=== PATIENT | male | born 1940 | race Caucasian/White ===

== ENCOUNTER → 2016-06-16 | Outpatient (CLI) | payer OTHER, BC ==
[~2016-06-16] MED LIST: ASCA500 PO; ASPCH81X PO; CITA10TA4 PO; CITA20TA4 PO; CLON0.5T3 PO; CLON1TAB3 PO; CLX20 PO; DONE10TA12 PO; GADAVIST IV PRN; LISI-725 PO; LISI-788 PO; MELO7.5T5 PO; NUTR1CAP PO; OMEP20CA9 PO; PARO1TAB27 PO; PRED1SUS OPR; PRLSR20 PO; SIMV40TA2 PO; TRAM-10 PO; ZNTT/150 PO; [UNRECOGNIZED DRUG - OTHER] PO
--- NOTE | 2016-06-16 13:45 | DIAGNOSTIC IMAGING REPORT ---
MRI OF THE NECK COMBO CLINICAL HISTORY: Neck pain. Right ear pain. Tongue swelling. Right jaw pain. COMPARISON STUDY: No priors. TECHNIQUE: MRI of the neck is performed utilizing various T1 and T2-weighted sequences in the axial and coronal planes. Contrast-enhanced images are acquired following the IV administration of 8 cc of Gadavist. FINDINGS: The soft tissues of the neck are normal in appearance. The pharyngeal soft tissues are unremarkable. The pharyngeal airway is widely patent. The parapharyngeal fat is normal in appearance. No retropharyngeal abnormality is seen. The vocal cords appear symmetric. The salivary and thyroid glands are within normal limits. No cervical lymphadenopathy is seen. The carotid arteries and jugular veins appear patent. Visualized brain parenchyma at the skull base is within normal limits. The mastoid air cells are well pneumatized. The visualized paranasal sinuses are clear. Partially imaged orbital contents are normal in appearance. The visualized bony structures appear intact. Multilevel cervical spondylosis is partially imaged. IMPRESSION: 1. No soft tissue abnormality is identified in the neck. 2. Cervical spondylosis is partially imaged. Dictated: 06/16/2016 12:19 PM Transcribed: 06/16/2016 1:45 PM Tl Electronically signed by: Grover Trejo M.D. 06/16/2016 1:46 PM Dictated Date/Time: 06/16/2016 12:19 PM
== END | disposition home or self-care (01) ==
LOC: C.MRI 10:52
PROVIDERS: ATTEND Hospitalist
DX: H92.01 Otalgia, right ear (principal); M54.2 Cervicalgia; R22.0 Localized swelling, mass and lump, head; F17.200 Nicotine dependence, unspecified, uncomplicated; M47.812 Spondylosis without myelopathy or radiculopathy, cervical region

== ENCOUNTER → 2016-07-19 | Day surgery (SDC) | payer OTHER, BC ==
[2016-07-06 08:56] VITALS: Ht 177.8 cm; Wt 80.9 kg
[~2016-07-19] VITALS: Ht 177.8 cm; Wt 80.9 kg
[~2016-07-19] MED LIST changes: +500ML BSS 0.3ML EPI 1:1000PF IRRIG ONE; +ACETAMINOPHEN 325 MG TAB PO PRN; +AMVISC PLUS 0.8ML SYRINGE INT OCU ONE; +ATROPINE SULFATE 0.1 MG/ML 5ML SYR IV PRN; +AcetaZOLAMIDE 250 MG TAB PO SCH; +BETAXOLOL HCL 0.25% OP SUSP PER DROP CHARGE OPR SCH; +BRIMONIDINE TART 0.2% OP SOLN PER DROP CHARGE ONE; +BSS FLUSH ONE; -CLON0.5T3 PO; -CLON1TAB3 PO; +ENDOCOAT 0.85ML SYRINGE INT OCU ONE; +EpHEDrine SULFATE INJ 50 MG/ML AMP IV PRN; +EpINEphrine INJ 1MG/ML AMP 1 MG/ML AMP ONE; -GADAVIST IV PRN; +LACTATED RINGER'S 1000ML 500 ML IV SCH; +LIDOCAINE 4% OP SOLN DROP CHARGE ONE; +LIDOCAINE 4% OP SOLN DROP CHARGE OPR SCH; +LIDOCAINE HCL 1% MPF 2 ML VIAL ONE; -LISI-725 PO; +MIDAZOLAM HCL 1 MG/ML 2ML VIAL ONE; +MIX: 4ML BSS 1ML EPI 1:1000 PF INSTIL ONE; +MOXIFLOXACIN OPH SOLN PER DROP CHARGE ONE; +OCUCOAT 1 ML SOLN IO ONE; -PARO1TAB27 PO; +POVIDONE-IODINE OP SOLN 30 ML BTL ONE; -PRLSR20 PO; +PROPARACAINE 0.5% OP SOLN PER DROP CHARGE OPR SCH; +TOBRAMYCIN/DEXAMETHASONE OPH OINT PER APPLN CHARGE ONE
--- NOTE | 2016-07-19 07:51 | History & Physical Bridge - SC ---
H&P Re-Evaluation Bridge Note: I have examined the patient, reviewed the History & Physical and in the interval since the performance of the History & Physical I have noted the following changes of clinical significance: No changes noted
[2016-07-19] MEDS: PHENYLEPHRINE HCL 2.5% OP SOLN PER DROP CHARGE OPR SCH ×2 (08:12→08:17)
[2016-07-19] MEDS: TROPICAMIDE 1% OP SOLN PER DROP CHARGE OPR SCH ×2 (08:13→08:18)
[2016-07-19] MEDS: CYCLOPENTOLATE HCL 1% OP SOLN PER DROP CHARGE OPR SCH ×2 (08:14→08:19)
[2016-07-19] MEDS: MOXIFLOXACIN OPH SOLN PER DROP CHARGE OPR SCH ×2 (08:15→08:25)
--- NOTE | 2016-07-19 09:13 | Discharge Instructions-SurgCtr ---
Discharge Instructions Visit Reason for Visit: Cataract Right Eye Discharge Discharge Diagnosis / Problem: lens implant right eye Discharge Goals Goal(s): Improve function Activity Recommendations Activity Limitations: resume your previous activity Lifting Limitations: no more than 10 pounds Exercise/Sports Limitations: gradually increase as tolerated May Resume Sexual Activity: when tolerated Shower/Bathe: tomorrow Driving or Machine Use: resume 1 day after discharge Anesthesia . Post Anesthesia Instructions: If you have had General Anesthesia or IV Sedation: * Do not drive today. * Resume driving when surgeon permits. * Do not make important decisions or sign legal documents today. * Call surgeon for: 1. Temperature elevations greater than 101 degrees F. 2. Uncontrollable pain. 3. Excessive bleeding. 4. Persistent nausea and vomiting. 5. Medication intolerance (nausea, vomiting or rash). * For nausea and vomiting use only clear liquids such as: tea, soda, bouillon until nausea subsides, then gradually increase diet as tolerated. * If you have any concerns or questions, call your surgeon's office. If physician is unavailable and it is an emergency, call 911 or go to the nearest emergency room. . Instructions / Follow-Up Instructions / Follow-Up ACTIVITY RECOMMENDATIONS: * Light activities. * Mild irritation and blurred vision are common for the first few days. * You may walk outside, read, watch television. * Redness around the white part of the eye is common. MEDICATIONS: Resume previous medications unless instructed otherwise by your surgeon. * Take white Diamox (Acetazolamide) tablet at 1 pm today. Start all eye drops at 1 pm today: * Eye drops (today and tomorrow): Prednisone - one drop in operative eye every 3 hours while awake Ofloxacin - one drop in operative eye every 3 hours while awake SPECIAL CARE INSTRUCTIONS: * Tape plastic shield over eye to sleep at night. Call your doctor at with any concerns or problems. FOLLOW UP VISIT: Follow-up with Dr Foote at [place] office as scheduled. Diet Recommendations Home Diet: no limitations Procedures Procedures Performed: cataract extraction with lens implant Pending Studies Studies pending at discharge: no Medical Emergencies . Who to Call and When: Medical Emergencies: If at any time you feel your situation is an emergency, please call 911 immediately. . Non-Emergent Contact Non-Emergency issues call your: Marketing/Sales Person Call Non-Emergent contact if: your pain is not controlled [phone] . . "Provider Documentation" section prepared by Jose Foote.
--- NOTE | 2016-07-19 09:15 | [facility] Operative Report ---
Operative Report 1. PREOPERATIVE DIAGNOSIS: Senile nuclear cataract, right eye. 2. POSTOPERATIVE DIAGNOSIS: Senile nuclear cataract, right eye. 3. PROCEDURE: Phacoemulsification of right cataract with posterior chamber lens implant, type Bausch [employer] Lomb, model MX60, power +21.0 diopters. ANESTHESIA: Local standby. SURGEON: Dr. Foote. COMPLICATIONS: None. OPERATING TIME: 10 minutes. 4. OPERATION AND FINDINGS: DESCRIPTION OF PROCEDURE: The right pupil was dilated. The anesthetic was administered using a topical technique. The right eye was prepped and draped. A speculum was placed. A clear corneal incision was formed. The chamber was filled with Amvisc Plus and Endocoat. Epinephrine solution was used. A paracentesis was placed. A capsulorrhexis was performed. The nucleus was hydrodissected. A dense lens was removed with phacoemulsification. Time was 9.45 seconds. The aspiration unit was used to remove the cortex. The capsule was filled with Amvisc Plus. The lens implant was folded and placed into the capsule. The incision was hydrated. The Amvisc was aspirated. The wound was secure. The chamber was deep. The pupil was round. TobraDex ointment and Vigamox solution were placed. The speculum was removed. The patient was returned to the Recovery Room in stable condition. I attest to the content of the Intraoperative Record and any orders documented therein. Any exceptions are noted below. The scribe's documentation has been prepared in my presence, under my direction and personally reviewed by me in its entirety. I confirm that the note above accurately reflects all work, treatment, procedures, and medical decision making performed by me. I personally scribed for Jose Foote M.D. ([email or web address]) on 07/19/16 at 09:15. Electronically submitted by Munira Oneil ([email or web address]).
[2016-07-19 09:17] VITALS: TEMP 36.6
--- NOTE | 2016-07-19 09:34 | Anesthesia Progress Nt - [facility] ---
Anesthesia Post Op Note Date & Time Jul 19, 2016 at 09:33 Vital Signs Pain Intensity: 0 Vital Signs Past 12 Hours Date Time Temp Pulse Resp B/P Pulse Ox O2 Delivery O2 Flow Rate FiO2 07/19/16 09:17 36.6 56 16 138/86 97 Room Air 07/19/16 07:57 36.6 62 18 158/82 98 Room Air Notes Mental Status: alert / awake / arousable, participated in evaluation Pt Amnestic to Procedure: Yes Nausea / Vomiting: adequately controlled Pain: adequately controlled Airway Patency, RR, SpO2: stable & adequate BP & HR: stable & adequate Hydration State: stable & adequate Anesthetic Complications: no major complications apparent
[2016-07-19 09:37] VITALS: BP 124/81; PULSE 58; O2SAT 95
== END | disposition home or self-care (01) ==
LOC: X.SURG 07:36
PROVIDERS: ATTEND Specialist
DX: H25.11 Age-related nuclear cataract, right eye (principal); I10 Essential (primary) hypertension

== ENCOUNTER → 2016-08-02 | Day surgery (SDC) | payer OTHER, BC ==
[2016-08-01 09:03] VITALS: Ht 177.8 cm; Wt 80.9 kg
[~2016-08-02] VITALS: Ht 177.8 cm; Wt 80.9 kg
[~2016-08-02] MED LIST changes: +BETAXOLOL HCL 0.25% OP SUSP PER DROP CHARGE OPL SCH; -BETAXOLOL HCL 0.25% OP SUSP PER DROP CHARGE OPR SCH; -CLX20 PO; +LIDOCAINE 4% OP SOLN DROP CHARGE OPL SCH; -LIDOCAINE 4% OP SOLN DROP CHARGE OPR SCH; +PROPARACAINE 0.5% OP SOLN PER DROP CHARGE OPL SCH; -PROPARACAINE 0.5% OP SOLN PER DROP CHARGE OPR SCH; -ZNTT/150 PO
[2016-08-02] MEDS: PHENYLEPHRINE HCL 2.5% OP SOLN PER DROP CHARGE OPL SCH ×2 (11:42→11:47)
[2016-08-02] MEDS: TROPICAMIDE 1% OP SOLN PER DROP CHARGE OPL SCH ×2 (11:43→11:48)
[2016-08-02] MEDS: CYCLOPENTOLATE HCL 1% OP SOLN PER DROP CHARGE OPL SCH ×2 (11:44→11:49)
[2016-08-02] MEDS: MOXIFLOXACIN OPH SOLN PER DROP CHARGE OPL SCH ×2 (11:45→11:55)
--- NOTE | 2016-08-02 12:58 | Discharge Instructions-SurgCtr ---
Discharge Instructions Visit Reason for Visit: Cataract Left Eye Discharge Discharge Diagnosis / Problem: lens implant left eye Discharge Goals Goal(s): Improve function Activity Recommendations Activity Limitations: resume your previous activity Lifting Limitations: no more than 10 pounds Exercise/Sports Limitations: gradually increase as tolerated May Resume Sexual Activity: when tolerated Shower/Bathe: tomorrow Driving or Machine Use: resume 1 day after discharge Anesthesia . Post Anesthesia Instructions: If you have had General Anesthesia or IV Sedation: * Do not drive today. * Resume driving when surgeon permits. * Do not make important decisions or sign legal documents today. * Call surgeon for: 1. Temperature elevations greater than 101 degrees F. 2. Uncontrollable pain. 3. Excessive bleeding. 4. Persistent nausea and vomiting. 5. Medication intolerance (nausea, vomiting or rash). * For nausea and vomiting use only clear liquids such as: tea, soda, bouillon until nausea subsides, then gradually increase diet as tolerated. * If you have any concerns or questions, call your surgeon's office. If physician is unavailable and it is an emergency, call 911 or go to the nearest emergency room. . Instructions / Follow-Up Instructions / Follow-Up ACTIVITY RECOMMENDATIONS: * Light activities. * Mild irritation and blurred vision are common for the first few days. * You may walk outside, read, watch television. * Redness around the white part of the eye is common. MEDICATIONS: Resume previous medications unless instructed otherwise by your surgeon. * Take white Diamox (Acetazolamide) tablet at 4 pm today. Start all eye drops at 4 pm today: * Eye drops (today and tomorrow): Prednisone - one drop in operative eye every 3 hours while awake Ofloxacin - one drop in operative eye every 3 hours while awake SPECIAL CARE INSTRUCTIONS: * Tape plastic shield over eye to sleep at night. Call your doctor at with any concerns or problems. FOLLOW UP VISIT: Follow-up with Dr Foote at [place] office as scheduled. Diet Recommendations Home Diet: no limitations Procedures Procedures Performed: cataract extraction with lens implant Pending Studies Studies pending at discharge: no Medical Emergencies . Who to Call and When: Medical Emergencies: If at any time you feel your situation is an emergency, please call 911 immediately. . Non-Emergent Contact Non-Emergency issues call your: Extruder Operator Vertical Call Non-Emergent contact if: your pain is not controlled [phone] . . "Provider Documentation" section prepared by Jose Foote.
[2016-08-02 13:01] VITALS: TEMP 36.7
--- NOTE | 2016-08-02 13:02 | [facility] Operative Report ---
Operative Report Date of Service Aug 02, 2016. Operative Report 1. PREOPERATIVE DIAGNOSIS: Senile nuclear cataract, left eye. 2. POSTOPERATIVE DIAGNOSIS: Senile nuclear cataract, left eye. 3. PROCEDURE: Phacoemulsification of left cataract with posterior chamber lens implant, type Bausch [employer] Lomb, model MX60, power +22.0 diopters. ANESTHESIA: Local standby. SURGEON: Dr. Foote. COMPLICATIONS: None. OPERATING TIME: 10 minutes. 4. OPERATION AND FINDINGS: DESCRIPTION OF PROCEDURE: The left pupil was dilated. The anesthetic was administered using a topical technique. The left eye was prepped and draped. A speculum was placed. A clear corneal incision was formed. The chamber was filled with Amvisc Plus and Endocoat. Epinephrine solution was used. A paracentesis was placed. A capsulorrhexis was performed. The nucleus was hydrodissected. The lens was removed with phacoemulsification. Time was 5.40 seconds. The aspiration unit was used to remove the cortex. The capsule was filled with Amvisc Plus. The lens implant was folded and placed into the capsule. The incision was hydrated. The Amvisc was aspirated. The wound was secure. The chamber was deep. The pupil was round. TobraDex ointment and Vigamox solution were placed. The speculum was removed. The patient was returned to the Recovery Room in stable condition. I attest to the content of the Intraoperative Record and any orders documented therein. Any exceptions are noted below. The scribe's documentation has been prepared in my presence, under my direction and personally reviewed by me in its entirety. I confirm that the note above accurately reflects all work, treatment, procedures, and medical decision making performed by me. I personally scribed for Jose Foote M.D. ([email or web address]) on 08/02/16 at 13:01. Electronically submitted by Munira Oneil ([facility]).
--- NOTE | 2016-08-02 13:10 | Anesthesia Progress Nt - [facility] ---
Anesthesia Post Op Note Date & Time Aug 02, 2016 at 13:11 Vital Signs Pain Intensity: 0 Vital Signs Past 12 Hours Date Time Temp Pulse Resp B/P Pulse Ox O2 Delivery O2 Flow Rate FiO2 08/02/16 11:32 36.5 55 18 130/85 97 Room Air Notes Mental Status: alert / awake / arousable, participated in evaluation Pt Amnestic to Procedure: Yes Nausea / Vomiting: adequately controlled Pain: adequately controlled Airway Patency, RR, SpO2: stable & adequate BP & HR: stable & adequate Hydration State: stable & adequate Anesthetic Complications: no major complications apparent
[2016-08-02 13:28] VITALS: BP 141/86; PULSE 53; O2SAT 97
== END | disposition home or self-care (01) ==
LOC: X.SURG 11:12
PROVIDERS: ATTEND Specialist
DX: H25.12 Age-related nuclear cataract, left eye (principal); G47.33 Obstructive sleep apnea (adult) (pediatric); F32.9 Major depressive disorder, single episode, unspecified; F17.200 Nicotine dependence, unspecified, uncomplicated

== ENCOUNTER → 2016-08-21 | Outpatient (CLI) | payer OTHER, BC ==
[~2016-08-21] MED LIST changes: -500ML BSS 0.3ML EPI 1:1000PF IRRIG ONE; -ACETAMINOPHEN 325 MG TAB PO PRN; -AMVISC PLUS 0.8ML SYRINGE INT OCU ONE; -ATROPINE SULFATE 0.1 MG/ML 5ML SYR IV PRN; -AcetaZOLAMIDE 250 MG TAB PO SCH; -BETAXOLOL HCL 0.25% OP SUSP PER DROP CHARGE OPL SCH; -BRIMONIDINE TART 0.2% OP SOLN PER DROP CHARGE ONE; -BSS FLUSH ONE; -ENDOCOAT 0.85ML SYRINGE INT OCU ONE; -EpHEDrine SULFATE INJ 50 MG/ML AMP IV PRN; -EpINEphrine INJ 1MG/ML AMP 1 MG/ML AMP ONE; -LACTATED RINGER'S 1000ML 500 ML IV SCH; -LIDOCAINE 4% OP SOLN DROP CHARGE ONE; -LIDOCAINE 4% OP SOLN DROP CHARGE OPL SCH; -LIDOCAINE HCL 1% MPF 2 ML VIAL ONE; -MIDAZOLAM HCL 1 MG/ML 2ML VIAL ONE; -MIX: 4ML BSS 1ML EPI 1:1000 PF INSTIL ONE; -MOXIFLOXACIN OPH SOLN PER DROP CHARGE ONE; -OCUCOAT 1 ML SOLN IO ONE; -POVIDONE-IODINE OP SOLN 30 ML BTL ONE; -PROPARACAINE 0.5% OP SOLN PER DROP CHARGE OPL SCH; -TOBRAMYCIN/DEXAMETHASONE OPH OINT PER APPLN CHARGE ONE
== END | disposition home or self-care (01) ==
LOC: C.LABBFT 08:57
PROVIDERS: ATTEND Urology
DX: N40.0 Benign prostatic hyperplasia without lower urinary tract symptoms (principal)

== ENCOUNTER → 2016-09-18 | Outpatient (CLI) | payer OTHER, BC | END | disposition home or self-care (01) | LOC: C.LABBFT 10:42 | PROVIDERS: ATTEND Urology | DX: R97.20 Elevated prostate specific antigen [PSA] (principal) ==

== ENCOUNTER → 2016-09-28 | Outpatient (CLI) | payer OTHER, BC ==
[2016-09-28 12:40] LABS: URINE APPEARANCE CLEAR (CLEAR); URINE BILIRUBIN NEG (NEG); URINE COLOR DK YELLOW; URINE NITRITE NEG (NEG); URINE SPECIFIC GRAVITY 1.033 (1.000-1.030); UROBILINOGEN NEG (NEG); ZZUR CULT IF INDIC CLEAN CATCH NO
[2016-09-28 12:46] LABS: MANUAL MICROSCOPIC REQUIRED? NO; REVIEW REQ? NO
[2016-09-28 13:00] LABS: ESTIMATED AVERAGE GLUCOSE 123 mg/dl; HA1C FLAG Normal (Normal)
[2016-09-28 13:02] LABS: BLOOD UREA NITROGEN 33 mg/dl (7-18); BUN/CREATININE RATIO 29.6 (10-20); GLUCOSE,FASTING 96 mg/dl (70-99)
--- NOTE | 2016-10-06 10:30 | CODING QUERY MEDICAL NECESSITY ---
SUPPORTING DIAGNOSIS NEEDED A supporting diagnosis is required for the test/procedure performed on this patient in order for us to be reimbursed by the patient's insurance. Please provide a supporting diagnosis for the following test/procedure listed below next to the test name along with your signature. *If there is no additional diagnosis for this patient that would support the following test/procedure please document that below next to the test/procedure. Test(s)/Procedure(s) that require a supporting diagnosis: DOS 09/28 * Hba1c DIAGNOSIS: Provider Signature: Date: Thank you Josefina Posadas Health Information Management Once completed, please kindly fax back to [phone] For questions please call [phone]
== END | disposition home or self-care (01) ==
LOC: C.LABBFT 08:24
PROVIDERS: ATTEND Internal Medicine
DX: R73.03 Prediabetes (principal); E78.00 Pure hypercholesterolemia, unspecified; R97.20 Elevated prostate specific antigen [PSA]

== ENCOUNTER → 2016-11-03 | Outpatient (CLI) | payer OTHER, BC ==
[~2016-11-03] MED LIST changes: +GADAVIST IV PRN
--- NOTE | 2016-11-13 09:21 | DIAGNOSTIC IMAGING REPORT ---
MRI OF THE PROSTATE WITH AND WITHOUT CONTRAST CLINICAL HISTORY: Elevated PSA. COMPARISON STUDY: MRI of the pelvis January 05, 2006. TECHNIQUE: Utilizing a 1.5 Barbra magnet and dedicated coil, multiplanar, multi echo imaging of the pelvis was performed with specific attention to the prostate gland. Post contrast imaging was performed utilizing dynamic enhancement following intravenous injection of 7 cc of Gadavist. Postprocessing was performed on an independent workstation utilizing hoccer. FINDINGS: There is no pelvic lymphadenopathy or ascites. No suspicious marrow replacement is identified within visualized skeletal structures. Visualized portions of the bladder and rectum are unremarkable. A few well-circumscribed T2 hyperintense nodules within the central gland represent BPH nodules. The prostate measures approximately 4.9 x 4 x 4.8 cm for an estimate volume of 43.4 cc. Of note, there is an ill-defined T2 hypointense focus that measures approximately 4.4 x 0.8 x 2.8 cm and is located within the right aspect of the peripheral zone and involves the anterolateral right base, right mid posterior, left mid medial, right apical anterolateral and right apical posterior aspects of the peripheral zone. This lesion demonstrates significant restricted diffusion as well as washout on postcontrast imaging. There is subtle asymmetric posterolateral bulging along the right rectoprostatic angle with slight ill-defined margins with the adjacent tissues. No additional suspicious lesions are identified on this exam. IMPRESSION: Suspicious T2 hypointense lesion, measuring approximately 4.4 x 0.8 x 2.8 cm, with restricted diffusion within the right peripheral zone which involves the base, mid and apex as well as extending anteriorly and into the left mid medial peripheral zone. Subtle asymmetric posterolateral bulging along the right rectoprostatic angle with ill-defined margins with the adjacent tissues raises the possibility of extracapsular extension. This lesion is considered PI-RADS 5: Very high (clinically significant cancer is highly likely to be present). Electronically signed by: Gerald Meza M.D. 11/13/2016 9:19 AM Dictated Date/Time: 11/11/2016 2:59 PM
== END ==
LOC: C.MRI 09:20
PROVIDERS: ATTEND Urology
DX: R97.20 Elevated prostate specific antigen [PSA] (principal)

== ENCOUNTER → 2016-11-08 | Outpatient (CLI) | payer OTHER, BC ==
[~2016-11-08] MED LIST changes: -GADAVIST IV PRN
--- NOTE | 2016-11-08 11:54 | DIAGNOSTIC IMAGING REPORT ---
CT LUNG SCREENING, LOW DOSE WITH COMPUTER-AIDED DETECTION (CAD) CLINICAL HISTORY: History of smoking. COMPARISON STUDY: Chest CT 04/12/2007. CT DOSE: 81.68 mGycm TECHNIQUE: Low-dose helical CT was acquired without intravenous contrast from lung apices to bases and reconstructed at 2.5 mm every 2 mm. CAD was utilized for this study. FINDINGS: Multiple scattered pulmonary nodules. The majority of these are stable in size compared to 2007 examination and are considered to be benign. A tiny nodule within the left lower lobe on image 102 and a groundglass nodule within the periphery of the right upper lobe on image 54 are new from the prior study and described below. Mild emphysema. The central airways are patent. No mediastinal or hilar lymphadenopathy. Moderate calcified plaque within the coronary arteries. The heart is normal in size. Hypodense lesions within the right hepatic lobe. These favor cysts. A 3.8 cm hypodense lesion within the upper pole of the right kidney also favors a cyst. No pleural or pericardial effusions. Nodule 1 Category: 2 Nodule 1 Status: Baseline Nodule 1 Description: Non-solid Nodule 1 Lesion ID: 3 Nodule 1 Slice Number: [id number] Nodule 1 Volume (mm3): 217 Nodule 1 Major [place] mm: 10.3 Nodule 1 Minor [place] mm: 8.7 Nodule 2 Category: 2 Nodule 2 Status: Baseline Nodule 2 Description: Solid Nodule 2 Lesion ID: 1 Nodule 2 Slice Number: 66 Nodule 2 Volume (mm3): 9 Nodule 2 Major [place] mm: 2.5 Nodule 2 Minor [place] mm: 1.9 IMPRESSION: 1. There are 2 new nodules as described above. Please refer to the recommendations below for follow-up. 2. Additional multiple scattered nodules are stable compared to the 2006 study and are considered to be benign. 3. Mild emphysema. CAD FINDINGS: Overall Lung RADS Category: 2 Lung RADS Management Recommendation: Lung-RADS 2: Continue annual screening in 12 months. Lung RADS Follow Up Date: 2017-11-08 Lung RADS Nodule ID: [id number] Electronically signed by: Isma Hernandez M.D. 11/08/2016 11:52 AM Dictated Date/Time: 11/08/2016 11:29 AM
== END | disposition home or self-care (01) ==
LOC: C.CTS 10:36
PROVIDERS: ATTEND Internal Medicine
DX: Z87.891 Personal history of nicotine dependence (principal); J43.9 Emphysema, unspecified

== ENCOUNTER → 2016-12-11 | Outpatient (CLI) | payer OTHER, BC | END | disposition home or self-care (01) | LOC: C.PATHSPEC 11:52 | PROVIDERS: ATTEND Urology | DX: R97.20 Elevated prostate specific antigen [PSA] (principal) ==

== ENCOUNTER → 2017-01-05 | Outpatient (CLI) | payer OTHER, BC ==
[~2017-01-05] MED LIST changes: +OPTIRAY 320 IV PRN
--- NOTE | 2017-01-05 10:56 | DIAGNOSTIC IMAGING REPORT ---
ABD/PELVIS COMBO WITH ORAL CLINICAL HISTORY: 76 years-old Male presenting with PROSTATE CA. TECHNIQUE: Multidetector CT of the abdomen and pelvis was performed before and after the administration of intravenous contrast. IV contrast: 94 mL of Optiray 320. A dose lowering technique was used consistent with the principles of ALARA (as low as reasonably achievable). COMPARISON: MR pelvis from 11/03/2016. CT DOSE (mGy.cm): The estimated cumulative dose is 1153.98 mGycm. FINDINGS: Lead Process Engineer topogram: Unremarkable. Lung bases: Mild emphysema noted at the lung bases. Normal heart size. Coronary artery calcification. No pericardial or pleural effusion. Liver: Normal morphology. Well-defined hypodense lesions in both lobes of the liver are unchanged from prior CT from 2008 and consistent with hepatic cysts or hamartomas. Patent hepatic vasculature. Biliary: No intrahepatic or extrahepatic biliary ductal dilatation. Normal gallbladder. Pancreas: Normal. Spleen: Normal. Adrenal glands: Normal. Kidneys and ureters: Multiple well-defined hypodensities in the kidneys, likely simple cysts. No hydronephrosis. Gastrointestinal tract: Sigmoid diverticulosis. No bowel obstruction. Peritoneal cavity: No free fluid or intraperitoneal gas. Bladder: Normal. Pelvic organs: Prostate enlargement likely secondary to benign prostatic hyperplasia. Vasculature: Atherosclerosis of the normal caliber abdominal aorta. Lymph nodes: Scattered subcentimeter lymph nodes, not pathologically enlarged. Abdominal wall: Diastases of the abdominis rectus. Musculoskeletal: Degenerative changes of the spine. Postsurgical changes of L3-4 laminectomies. Mild retrolisthesis of L1 on L2 and L2 on L3. Extensive degenerative endplate changes. No sclerotic lesions evident. Osteopenia. Old rib fracture of the right lateral seventh rib. IMPRESSION: 1. No evidence of lymphadenopathy or metastatic disease in abdomen or pelvis. 2. Enlarged prostate. 3. Mild emphysema. Electronically signed by: Pablo Sellers M.D. 01/05/2017 10:54 AM Dictated Date/Time: 01/05/2017 10:47 AM
--- NOTE | 2017-01-05 13:28 | DIAGNOSTIC IMAGING REPORT ---
BONE SCAN WHOLE BODY CLINICAL HISTORY: 76 years-old Male presenting with PROSTATE CA. TECHNIQUE: Planar anterior and posterior whole body imaging was performed 3 hours following the intravenous administration of radiotracer. Radiotracer: 27.1 mCi Tc-99m MDP. COMPARISON: CT from 01/05/2017. FINDINGS: Radiotracer activity in the right anterolateral seventh rib. Activity in the region of the left acromioclavicular joint and lower lumbar spine likely degenerative in etiology. Additional focal tracer uptake in the right posterior elements of a cervical vertebra. IMPRESSION: 1. Solitary rib lesion correlates with old rib fracture in the right lateral seventh rib. 2. Additional activity correlates with degenerative changes in the lumbar and cervical spine. 3. No convincing evidence of osseous lesion to suggest metastatic disease. Electronically signed by: Pablo Sellers M.D. 01/05/2017 1:27 PM Dictated Date/Time: 01/05/2017 1:20 PM
== END | disposition home or self-care (01) ==
LOC: C.CTS 09:17
PROVIDERS: ATTEND Urology
DX: C61 Malignant neoplasm of prostate (principal)

== ENCOUNTER → 2017-01-26 | Outpatient (CLI) | payer OTHER, BC ==
[~2017-01-26] MED LIST changes: -ASCA500 PO; -ASPCH81X PO; -NUTR1CAP PO; -OPTIRAY 320 IV PRN; -[UNRECOGNIZED DRUG - OTHER] PO
[2017-01-26 12:12] LABS: BASO % 0.1 %; BASO ABS # 0.01 K/uL (0-0.2); COMPLETE YES; EOS % 4.1 %; IG% 0.4 %; LYMPH % 29.1 %; LYMPH ABS # 2.25 K/uL (1.2-3.4); MEAN CELL VOLUME 95.1 fL (80-100); MEAN CORPUSCULAR HEMOGLOBIN 33.4 pg (25-34); MEAN CORPUSCULAR HGB CONC 35.1 g/dl (32-36); MONO % 7.4 %; NEUT % 58.9 %; PLATELET COUNT 251 K/uL (130-400); RED BLOOD COUNT 4.31 M/uL (4.7-6.1); WHITE BLOOD COUNT 7.73 K/uL (4.8-10.8)
[2017-01-26 14:11] LABS: LYME DISEASE AB IGG NEG (NEG); LYME DISEASE AB IGM NEG (NEG)
[2017-01-27 01:20] LABS: RAPID PLASMA REAGIN NONREACTIVE (NONREACT)
== END | disposition home or self-care (01) ==
LOC: C.LABBFT 08:31
PROVIDERS: ATTEND Internal Medicine
DX: H20.9 Unspecified iridocyclitis (principal)

== ENCOUNTER → 2017-06-01 | Outpatient (CLI) | payer OTHER, BC ==
[~2017-06-01] MED LIST changes: +ASCA500 PO; +BRIM0.2S OPL; +LEUP11.23 INJ; +LEUPROLIDE ACETATE 30 MG IM ONE; +MULT-506 PO; +NEPA0.6D OPL; +OXYC-57 PO; +URX/10 PO; +calcium PO
--- NOTE | 2017-08-15 11:10 | CODING QUERY NO DIAGNOSIS ---
: 1940 TREATMENT RENDERED WITHOUT A DIAGNOSIS To promote full compliance with coding requirements relating to patient care, physician participation is requested in all cases of survey technologist uncertainty. Please assist us with providing a diagnosis/symptom for the test(s) below: A diagnosis/symptom was not documented on your Order. A valid diagnosis/symptom is required to bill all insurances. Please remember that we are unable to code a diagnosis of rule out, probable, possible, questionable, or suspected. Tests that require a diagnosis: DOS: 06/01/2017 RAD THERAP CHEMO/INJECTED DIAGNOSIS: Provider Signature: Date: Thank you [facility] Information Management Once completed, please kindly fax back to [phone] For questions please call [phone]
== END | disposition home or self-care (01) ==
LOC: C.ONC 14:22
PROVIDERS: ATTEND Physician Assistant Medical
DX: Z51.0 Encounter for antineoplastic radiation therapy (principal); C61 Malignant neoplasm of prostate

== ENCOUNTER → 2017-07-05 | Day surgery (SDC) | payer OTHER, BC ==
[2017-06-18 13:04] VITALS: BMI 26.0
[2017-06-18 13:34] LABS: BASO % 0.1 %; BASO ABS # 0.01 K/uL (0-0.2); EOS % 3.6 %; HEMATOCRIT 41.3 % (42-52); HEMOGLOBIN 14.1 g/dL (14.0-18.0); IG# 0.03 K/uL (0.00-0.02); LYMPH % 21.9 %; LYMPH ABS # 2.41 K/uL (1.2-3.4); MEAN CELL VOLUME 98.3 fL (80-100); MEAN CORPUSCULAR HEMOGLOBIN 33.6 pg (25-34); MEAN CORPUSCULAR HGB CONC 34.1 g/dl (32-36); MEAN PLATELET VOLUME 10.1 fL (7.4-10.4); MONO % 7.6 %; MONO ABS # 0.83 K/uL (0.11-0.59); NEUT % 66.5 %; NEUT ABS # 7.31 K/uL (1.4-6.5); PLATELET COUNT 272 K/uL (130-400); RED CELL DISTRIBUTION WIDTH CV 13.3 % (11.5-14.5); RED CELL DISTRIBUTION WIDTH SD 48.1 fL (36.4-46.3); WHITE BLOOD COUNT 10.99 K/uL (4.8-10.8)
--- NOTE | 2017-06-18 13:34 | PAT Medication Instructions ---
Service Date Jun 18, 2017. Current Home Medication List Ascorbic Acid (Vitamin C), 1,000 MG PO QAM Citalopram Hydrobromide (Citalopram Hydrobromide), 1 TAB PO QAM Citalopram Hydrobromide (Citalopram Hydrobromide), 1 TAB PO QAM Donepezil Hydrochloride (Aricept), 10 MG PO QAM Leuprolide Acetate (Lupron Depot), 1 DOSE INJ q3-4months Lisinopril/Hctz (Zestoretic 20MG/25MG), 1 TAB PO QAM Meloxicam (Mobic), 7.5 MG PO BID PRN for Pain Multivitamin (Multivitamin), 1 TAB PO QAM Nepafenac (Ilevro), 1 DROP OPL QAM Omeprazole (Prilosec), 20 MG PO QAM Prednisolone Acetate (Ophth) (Omnipred), 1 DROPS OPR BID Simvastatin (Zocor), 40 MG PO HS [calcium ], 1,200 MG PO QAM Medication Instructions For Your Scheduled Surgery Leuprolide Acetate (Lupron Depot), 1 DOSE INJ q3-4months (continue per surgeon) - Check with surgeon for instructions: Meloxicam (Mobic), 7.5 MG PO BID PRN for Pain - Hold the following medications the morning of surgery: Ascorbic Acid (Vitamin C), 1,000 MG PO QAM Lisinopril/Hctz (Zestoretic 20MG/25MG), 1 TAB PO QAM Multivitamin (Multivitamin), 1 TAB PO QAM [calcium ], 1,200 MG PO QAM - Take the following medications the morning of surgery with a sip of water: Omeprazole (Prilosec), 20 MG PO QAM Prednisolone Acetate (Ophth) (Omnipred), 1 DROPS OPR BID Nepafenac (Ilevro), 1 DROP OPL QAM Donepezil Hydrochloride (Aricept), 10 MG PO QAM Citalopram Hydrobromide (Citalopram Hydrobromide), 1 TAB PO QAM Citalopram Hydrobromide (Citalopram Hydrobromide), 1 TAB PO QAM - Take the following medications as scheduled the night before surgery: Simvastatin (Zocor), 40 MG PO HS Prednisolone Acetate (Ophth) (Omnipred), 1 DROPS OPR BID If you have any questions please call us at [phone] or [phone] or [phone]
--- NOTE | 2017-06-18 14:03 | DIAGNOSTIC IMAGING REPORT ---
CHEST 2 VIEWS ROUTINE CLINICAL HISTORY: PAT preoperative evaluation COMPARISON STUDY: 05/28/2012 FINDINGS: The bones soft tissues and hemidiaphragms are normal. The cardiomediastinal silhouette is normal. The lungs are clear. The pulmonary vasculature is normal. IMPRESSION: Negative chest. The above report was generated using voice recognition software. It may contain grammatical, syntax or spelling errors. Electronically signed by: Jimmy Herron M.D. 06/18/2017 2:01 PM Dictated Date/Time: 06/18/2017 2:01 PM
[2017-06-18 15:15] LABS: CALCIUM 9.2 mg/dl (8.5-10.1); CREATININE 1.19 mg/dl (0.60-1.40); POTASSIUM 3.8 mmol/L (3.5-5.1)
[~2017-07-05] VITALS: Ht 177.8 cm; Wt 82.2 kg
[~2017-07-05] MED LIST changes: +ATROPINE SULFATE 0.1 MG/ML 5ML SYR IV PRN; +BACITRACIN OINT 15 GM TUBE ONE; +CIPROFLOXACIN / D5W 400 MG IV SCH; +CONRAY 60% 50 ML VIAL ONE; +EpHEDrine SULFATE INJ 50 MG/ML AMP IV PRN; +FENTANYL CITRATE INJ 50 MCG/1 ML 2 ML VIAL IV PRN; +FENTANYL CITRATE INJ 50 MCG/1 ML 2 ML VIAL ONE; +GLYCOPYRROLATE INJ 0.2 MG/ML VIAL ONE; +LACTATED RINGER'S 1000ML 1,000 ML IV SCH; -LEUPROLIDE ACETATE 30 MG IM ONE; +LIDOCAINE HCL 2% 2 ML VIAL (20MG/ML) ONE; +NEOSTIGMINE METHYLSULFATE 5 MG/5 ML SYR ONE; +ONDANSETRON INJ 2 MG/ML 2 ML VIAL IV PRN; +OXYCODONE/ACETAMINOPHEN 5-325 TAB PO PRN; +PHENYLEPHRINE 100MCG/ML 5ML SYR ONE; +PROPOFOL IV EMULSION 10 MG/ML 20 ML VIAL IV ONE; +ROCURONIUM BROMIDE 10 MG/ML 5 ML VIAL IV ONE; -TRAM-10 PO; -URX/10 PO
[2017-07-05 05:45] VITALS: BP 163/80; PULSE 63; TEMP 36.6; O2SAT 97; Ht 177.8 cm; Wt 82.2 kg
--- NOTE | 2017-07-05 09:19 | [facility] Post Operative Brief Note ---
Immediate Operative Summary Operative Date Jul 05, 2017. Pre-Operative Diagnosis Prostate cancer Post-Operative Diagnosis Same as preop Procedure(s) Performed Brachy therapy Surgeon Dr. Rich Bulk Pigment Reducer Surgeon(s) Dr. Apple Estimated Blood Loss 2 ml Findings Consistent with Post-Op Diagnosis Specimens none, as per surgeon Drains briceño Anesthesia Type General Complication(s) none Disposition Accompanied Pt To Recover: yes Disposition: Recovery Room / PACU
--- NOTE | 2017-07-05 09:22 | Discharge Instructions ---
Discharge Instructions Date of Service Jul 05, 2017. Visit Reason for Visit: Prostate Cancer Discharge Discharge Diagnosis / Problem: Prostate cancer Discharge Goals Goal(s): Therapeutic intervention Activity Recommendations Activity Limitations: resume your previous activity (take it easy today see radiation saftey sheet) Anesthesia . Post Anesthesia Instructions: If you have had General Anesthesia or IV Sedation: * Do not drive today. * Resume driving when surgeon permits. * Do not make important decisions or sign legal documents today. * Call surgeon for: 1. Temperature elevations greater than 101 degrees F. 2. Uncontrollable pain. 3. Excessive bleeding. 4. Persistent nausea and vomiting. 5. Medication intolerance (nausea, vomiting or rash). * For nausea and vomiting use only clear liquids such as: tea, soda, bouillon until nausea subsides, then gradually increase diet as tolerated. * If you have any concerns or questions, call your surgeon's office. If physician is unavailable and it is an emergency, call 911 or go to the nearest emergency room. . Diet Recommendations Recommended Home Diet: resume previous diet Procedures Procedures Performed: Brachy therapy Pending Studies Studies pending at discharge: no Medical Emergencies . Who to Call and When: Medical Emergencies: If at any time you feel your situation is an emergency, please call 911 immediately. . Non-Emergent Contact Non-Emergency issues call your: Urologist Call Non-Emergent contact if: temperature is above 101.5, your pain is not controlled . . "Provider Documentation" section prepared by Efrain Rich. . [place] Drug Monitoring Program Search Results: patient reviewed within database
--- NOTE | 2017-07-05 09:59 | Anesthesiology Progress Note ---
Anesthesia Post Op Note Date & Time Jul 05, 2017 at 09:58 Vital Signs Pain Intensity: 0 Vital Signs Past 12 Hours Date Time Temp Pulse Resp B/P (MAP) Pulse Ox O2 Delivery O2 Flow Rate FiO2 07/05/17 09:55 36.2 63 16 137/99 96 Room Air 07/05/17 09:45 68 16 140/92 95 Room Air 07/05/17 09:35 71 16 158/94 96 Oxymask 15 07/05/17 09:25 70 16 155/88 97 Oxymask 15 07/05/17 09:18 36 85 16 170/96 96 Oxymask 15 07/05/17 05:45 36.6 63 18 163/80 (107) 97 Room Air Notes Mental Status: alert / awake / arousable, participated in evaluation Pt Amnestic to Procedure: Yes Nausea / Vomiting: adequately controlled Pain: adequately controlled Airway Patency, RR, SpO2: stable & adequate BP & HR: stable & adequate Hydration State: stable & adequate Anesthetic Complications: no major complications apparent
[2017-07-05 10:05] VITALS: BP 145/80; PULSE 68; TEMP 36.8; O2SAT 94
[2017-07-05 10:35] VITALS: BP 122/72; PULSE 66; O2SAT 94
[2017-07-05 10:50] VITALS: BP 131/70; PULSE 65; TEMP 36.5; O2SAT 95
--- NOTE | 2017-07-05 13:29 | DIAGNOSTIC IMAGING REPORT ---
[facility] ONE VIEW CLINICAL HISTORY: BRACHY THERAPY. Prostate seed implants. Fluoroscopy time: 5 seconds FINDINGS: A single fluoroscopic spot image of the pelvis was submitted. There is contrast within the bladder. Multiple brachytherapy seeds within the expected location of the prostate gland. A Begum catheter is identified within the bladder. IMPRESSION: Fluoroscopy provided for brachytherapy seed placement within the prostate gland. Electronically signed by: Isma Hernandez M.D. 07/05/2017 1:28 PM Dictated Date/Time: 07/05/2017 1:27 PM
--- NOTE | 2017-07-09 12:55 | OPERATIVE REPORT ---
DATE OF OPERATION: 07/05/2017 PREOPERATIVE DIAGNOSIS: Biopsy stage T2b, [place] 4+4, PSA 33 adenocarcinoma of the prostate. POSTOPERATIVE DIAGNOSIS: Biopsy stage T2b, [place] 4+4, PSA 33 adenocarcinoma of the prostate. PROCEDURE: Transperineal prostate brachytherapy with live dosimetry. FINDINGS: A 29-mL gland. SURGEON: Dr. Rich. PHYSICIST: Jarred Gann. RADIATION ONCOLOGIST: Dr. Apple. ANESTHESIA: General. DRAINS: Temporary Begum catheter in the bladder. COMPLICATIONS: None. SPECIMENS: None. INDICATIONS: The patient has been diagnosed with an adenocarcinoma of the prostate and has elected to undergo transperineal brachytherapy as part of his treatment and is being brought in now for the procedure. OPERATION AND FINDINGS: The patient was correctly identified and brought to the outpatient surgery suite. After the induction of an adequate level of anesthesia, the patient was placed in the dorsal lithotomy position. The patient's lower abdomen, genitalia, and perineum were then prepped with Hibiclens. A Begum catheter was then inserted per the urethra into the bladder using usual sterile technique and the urine was drained and then 100 mL of mixture of saline and iodinated contrast material was instilled through the Begum into the bladder. Aerated gel was then placed within the lumen of the catheter, and the catheter was then plugged. The patient's scrotum was then taped upward using a Steri-Drape to keep it out of the way of the perineum. A transrectal ultrasound probe was then gently inserted into the patient's rectum and attached to the brachytherapy sled, and adjustments were made to the brachytherapy sled using the template projected on the ultrasound screen to get the transrectal probe and the image of the prostate into the proper position. After getting the probe adjusted properly, the prostate was scanned from its base to its apex with the images being transmitted to the treatment planning computer. While the radiation oncologist and physicist were performing a live implant plan, empty needles were placed through the template and positioned in the prostate around the entire periphery of the prostate. Each needle was spaced approximately 1 cm apart from its neighbor and again this was done circumferentially around the prostate. At this point, Dr. Apple used a MARK applicator to place the seeds into the prostate through these peripherally placed needles with the number and position of the seeds based on the plan that had just been created. This was done live so live dosimetry was being calculated with each seed placement. After the peripheral seeds were placed and all the peripheral needles removed, the radiation oncologist and physicist then planned for the central needles and these needles were placed in their proper positions based on the plan. After completing this portion, again the case was turned over to Dr. Apple for placement of the central seeds. A total number of 18 needles were used to implant 51 CS 131 seeds. After completing the implant, a fluoroscopic image was taken to check to make sure that there were no seeds placed within the bladder and a final picture was taken of this. One final inspection was then done looking at the plan and the seed implant and after completion of this final inspection the transrectal probe was removed. The patient's bladder was drained through the Begum catheter. A [place] counter was used to check for any radioactivity remaining in the needles and in the urine. The Begum catheter was then left indwelling. The patient's perineum was then washed and dried, and an antibiotic ointment was applied. The patient tolerated the procedure well and was transferred to the Recovery Room in stable condition. I attest to the content of the Intraoperative Record and any orders documented therein. Any exception s are noted below.
== END | disposition home or self-care (01) ==
LOC: C.ACU 05:17
PROVIDERS: ATTEND Urology
DX: C61 Malignant neoplasm of prostate (principal); N40.0 Benign prostatic hyperplasia without lower urinary tract symptoms; J44.9 Chronic obstructive pulmonary disease, unspecified; F41.8 Other specified anxiety disorders; K21.9 Gastro-esophageal reflux disease without esophagitis; E78.00 Pure hypercholesterolemia, unspecified; I10 Essential (primary) hypertension; N52.9 Male erectile dysfunction, unspecified; Z87.891 Personal history of nicotine dependence; F03.90 Unspecified dementia, unspecified severity, without behavioral disturbance, psychotic disturbance, mood disturbance, and anxiety; G47.30 Sleep apnea, unspecified

== ENCOUNTER → 2017-07-16 | Outpatient (CLI) | payer OTHER, BC ==
[~2017-07-16] MED LIST changes: -ATROPINE SULFATE 0.1 MG/ML 5ML SYR IV PRN; -BACITRACIN OINT 15 GM TUBE ONE; -CIPROFLOXACIN / D5W 400 MG IV SCH; -CONRAY 60% 50 ML VIAL ONE; -EpHEDrine SULFATE INJ 50 MG/ML AMP IV PRN; -FENTANYL CITRATE INJ 50 MCG/1 ML 2 ML VIAL IV PRN; -FENTANYL CITRATE INJ 50 MCG/1 ML 2 ML VIAL ONE; +FESO4TAB PO; -GLYCOPYRROLATE INJ 0.2 MG/ML VIAL ONE; -LACTATED RINGER'S 1000ML 1,000 ML IV SCH; -LIDOCAINE HCL 2% 2 ML VIAL (20MG/ML) ONE; -NEOSTIGMINE METHYLSULFATE 5 MG/5 ML SYR ONE; -ONDANSETRON INJ 2 MG/ML 2 ML VIAL IV PRN; -OXYCODONE/ACETAMINOPHEN 5-325 TAB PO PRN; -PHENYLEPHRINE 100MCG/ML 5ML SYR ONE; -PROPOFOL IV EMULSION 10 MG/ML 20 ML VIAL IV ONE; -ROCURONIUM BROMIDE 10 MG/ML 5 ML VIAL IV ONE; +URX/10 PO; +VENL150C56 PO
--- NOTE | 2017-09-26 14:13 | CODING QUERY NO DIAGNOSIS ---
: 1940 TREATMENT RENDERED WITHOUT A DIAGNOSIS To promote full compliance with coding requirements relating to patient care, physician participation is requested in all cases of paying teller uncertainty. Please assist us with providing a diagnosis/symptom for the test(s) below: A diagnosis/symptom was not documented on your Order. A valid diagnosis/symptom is required to bill all insurances. Please remember that we are unable to code a diagnosis of rule out, probable, possible, questionable, or suspected. Tests that require a diagnosis: DOS: 07/16/17 RADIATION THERAPY DIAGNOSIS: Provider Signature: Date: [facility] you [facility] Health Information Management Once completed, please kindly fax back to [phone] For questions please call [phone]
== END | disposition home or self-care (01) ==
LOC: C.ONC 09:10
PROVIDERS: ATTEND Physician Assistant Medical
DX: Z51.0 Encounter for antineoplastic radiation therapy (principal); C61 Malignant neoplasm of prostate

== ENCOUNTER → 2017-08-06 | Outpatient (CLI) | payer OTHER, BC ==
[~2017-08-06] MED LIST changes: -FESO4TAB PO; -NEPA0.6D OPL; -OXYC-57 PO; -VENL150C56 PO
[2017-08-07 06:49] LABS: HEMOGLOBIN A1C 5.5 % (4.5-5.6)
== END | disposition home or self-care (01) ==
LOC: C.LABBFT 14:31
PROVIDERS: ATTEND Internal Medicine
DX: E78.00 Pure hypercholesterolemia, unspecified (principal); R73.03 Prediabetes; F41.8 Other specified anxiety disorders; R53.83 Other fatigue

== ENCOUNTER → 2017-08-21 | Outpatient (CLI) | payer OTHER, BC ==
[~2017-08-21] MED LIST changes: +FESO4TAB PO; +VENL150C56 PO
== END | disposition home or self-care (01) ==
LOC: C.PATHSPEC 11:13
PROVIDERS: ATTEND Urology
DX: R39.15 Urgency of urination (principal)

== ENCOUNTER → 2017-10-23 | Outpatient (CLI) | payer OTHER, BC ==
[~2017-10-23] MED LIST changes: -CITA10TA4 PO; -CITA20TA4 PO; +FLM4 PO
== END | disposition home or self-care (01) ==
LOC: C.LABBFT 09:33
PROVIDERS: ATTEND Physician Assistant Medical
DX: C61 Malignant neoplasm of prostate (principal)

== ENCOUNTER 2022-12-01 11:51 | Inpatient (IN) ==
--- NOTE | 2022-12-01 12:14 | Emergency Department Note ---
Impression & Plan Weakness, Elevated erythrocyte sedimentation rate, CRP elevated, Headache, Abdominal pain ED Provider Note NAME: DECLAN NOWAK AGE: 81 SEX: M : 1940 ARRIVES VIA: Walk-In INFORMANT: Patient, ED PROVIDER(S): Yuri Jin MD CHIEF COMPLAINT: Feeling unwell, headache, abdominal pain MEDICAL DECISION MAKING: Patient presents for feeling generally unwell with associated left-sided temporal headache and abdominal pain. IV was established blood was obtained along with inflammatory markers CT of the head and CT abdomen pelvis. The patient was also treated symptomatically for the patient's headache. Patient does have mildly elevated inflammatory markers. Patient's ESR and CRP are slightly elevated at 25 and 1.53 respectively. Mild hypomagnesemia at 1.6. The patient's creatinine is 1.48. This is slightly higher than normal and the patient did receive IV fluids. TSH normal. Bio fire respiratory panel is n egative with negative Lyme's. The patient's CT of the head negative for ICH. Chest x-ray is clear. Patient's CT abdomen pelvis shows no acute fractures or inflammatory findings. The patient does have hypervascular lesions involving the stomach duodenum and proximal jejunum. I did speak with the on-call radiologist Dr. Castillo he states that these were seen in 2017 but better assessed on today's CT but likely represent small polyps. I did convey the findings to the patient the patient's . They are concerned given the patient's had a progressive decline over the last month. I did speak the on- call hospitalist service Dr. Banegas and the patient was admitted to the medicine service. Prior /Outside records reviewed: I did review a cardiology visit with Dr. Myers patient did have a recent echocardiogram and his prior EKGs and echocardiograms were discussed extensively with patient and his during a visit with Dr. Myers on November 28. Patient reportedly declined any abdominal aortic ultrasound for continued monitoring as the patient does have aortic root dilatation. Patient also did have a recent primary care visit with Dr. Hester. This was currently in draft at the [facility] of the visit. There was some review of the patient's lab work from November 07. Differential diagnosis: Infection, dehydration, metabolic abnormality, hypo/hyperglycemia, electrolyte disturbance, anemia, hypoxia, cardiac sources, intracerebral event, toxicologic, neurologic, as well as other pathologies. Diagnostics, as interpreted by me: ECG: Normal normal sinus rhythm, rate of 93, normal intervals, normal axis no ST elevations. Cardiac monitoring: An order was placed for continuous cardiac monitoring. The monitor shows a rate of 88 with sinus rhythm. Patient was placed on pulse oximetry Medical decision rules: None Imaging studies: See below I informally reviewed the patient's CT of the head which shows no obvious ICH. HPI: Patient presents due to concern for feeling generally unwell and associated fatigue. The was concerned as the patient did go to take out the trash was annual do so because he was short of breath and fatigable. The patient reportedly has not been eating or drinking much for the last month. The patient has had chronic left-sided temporal headache and describes it as aching and nonradiating. The patient has also had chronic productive cough with yellow sputum. Patient former smoker last smoking in May and had smoked for 60 years. Patient does complain of associated mid abdominal pain does feel as though there is a burning in his throat. After discussion recent with the primary care doctor they discussed referral for an EGD. Patient has not had an EGD before. The patient denies any blood in urine or stool and denies any vom iting or diarrhea. Patient denies any recent falls or trauma. Patient has no chest pains PAST MEDICAL HISTORY: See Below PAST SURGICAL HISTORY: See Below SOCIAL HISTORY: See Below HOME MEDICATIONS: See Below ALLERGIES: See Below VITALS: See Below PHYSICAL EXAMINATION: GENERAL: NAD, wearing a mask, non-toxic. EYE EXAM: Normal conjunctiva. PERRL, no anisocoria and EOM's grossly intact w/o pain. Head: No reproducible head pain no significant TTP to the left temporal area or overlying skin changes NECK: Supple, no nuchal rigidity, no adenopathy, non-tender. No signs of meningismus. FROM of the neck with good chin to chest and neck extension. No stridor. LUNGS: Clear to auscultation. Normal chest wall mechanics. HEART: NSR, no MRG. ABDOMEN: Abdomen soft, mid abdominal and epigastric discomfort without lower abdominal pain, no masses, no rebound or guarding. BACK: No CVA TTP. SKIN: No rashes and no bruising. UPPER EXTREMITIES: Upper extremities are grossly normal. Well perfused. LOWER EXTREMITIES: Grossly normal, no edema. Well perfused. NEURO EXAM: A&O x3, cranial nerves II-XII grossly intact, normal speech, moves all 4 extremities. Good [id number], no drift and no sensory deficits. 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) Chronic back pain Depression Fusion of spine L3-L4 GERD (gastroesophageal reflux disease) History of vitamin D deficiency Hyperlipidemia Hypertension Lumbago Lumbar radiculopathy Lumbar spinal stenosis Lumbosacral facet joint syndrome Mild dementia Osteoarthritis Sacroiliitis Sleep apnea CPAP Urinary urgency Surgical History H/O shoulder surgery RIGHT SHOULDER TENDON REPAIR History of adenoidectomy History of arthroscopy RIGHT KNEE History of bowel resection LAPRASCOPIC R/T VILLOUS ADENOMA History of cataract surgery BILATERAL History of colonoscopy History of discectomy LUMBAR AREA X2 History of lumbar fusion L4-5, non-instrumented History of repair of rotator cuff RIGHT SHOULDER History of tonsillectomy Family History Father Cancer, Onset Age: 80 Hypertension Cardiac disorder Prostate cancer Mother age 97-unknown med problems Brother Cancer -unknown type of CA Brother Back pain Sister Dementia Denies family history of Ovarian cancer Coronary heart disease Breast cancer Colorectal cancer Social History Smoking Status: Never smoker Tobacco Type: Cigarettes Age Started Using Tobacco: 19; packs per day: 2; Cigarettes Per Day: 20; Second Hand Exposure: Yes; Do You Dip or Chew Tobacco: No; Hx Alcohol Use: Yes Alcohol type: beer Hx Substance Use: No Preferred Language: Yi Communication Ability: Effective Hearing Ability: Hard of Hearing Braid Folder Required: No Beliefs That Will Affect Care: None marital status: Current Living Situation: Spouse current occupational status: retired current occupation: [employer] in [place] Feels Safe at Home: Yes Childhood Exposure to Second-Hand Smoke: Yes Diet: regular caffeine: Yes Dental Care, Regularly: Yes Physical Activity Frequency: Does not Exercise Seatbelt Use: always Sunscreen Use: No Assistive Devices: CPAP and Glasses Allergies Allergies Allergy/AdvReac Type Severity Reaction Status Date / Time No Known Allergies Allergy Unknown Verified 12/01/22 15:34 Home Meds Home Medications Medication Instructions Recorded Confirmed acetaminophen 325 mg tablet 650 mg PO QID PRN Pain 12/01/22 12/01/22 (Tylenol) Previous Rx's Medication Instructions Recorded aspirin 81 mg tablet,delayed 81 mg PO DAILY #30 tabs 11/14/21 release albuterol sulfate 90 mcg/actuation 2 puff inhalation Q6H PRN 03/01/22 aerosol inhaler (Ventolin HFA) shortness of breath or wheezing #8.5 grams memantine 5 mg tablet (Namenda) 5 mg PO BID #180 tabs 06/26/22 donepezil 10 mg tablet (Aricept) 10 mg PO DAILY #90 tabs 07/05/22 lisinopril 20 1 tab PO DAILY #90 tabs 07/05/22 mg-hydrochlorothiazide 25 mg tablet rosuvastatin 40 mg tablet 40 mg PO DAILY #90 tabs 07/13/22 fluticasone fur. 100 mcg-umeclid 1 inh inhalation DAILY #60 ea 09/07/22 62.5 mcg-vilant 25 mcg inhalat.powder (Trelegy Ellipta) omeprazole 40 mg capsule,delayed 40 mg PO DAILY #30 caps 11/28/22 release venlafaxine 225 mg tablet,extended 225 mg PO DAILY #30 tabs 11/28/22 release 24 hr Results & Data (ED) Vital Signs Vital Signs - 24 hr 12/01/22 11:54 12/01/22 12:07 12/01/22 12:31 Temperature 36.2 C L Temperature Source Temporal Artery Scan Pulse Rate 100 H 93 H Pulse Rate [Apical] 91 H Pulse Rate from SpO2 Sensor Pulse Rhythm [Apical] Pulse Strength [Apical] Respiratory Rate 16 18 Respiratory Effort / Characteristics Non-Labored Respiratory Depth Normal Respiratory Pattern Regular Blood Pressure 95/69 L Blood Pressure [Left Arm] 85/56 L Blood Pressure Mean 77 Blood Pressure Mean [Left Arm] 65 Pulse Oximetry 95 98 Oxygen Delivery Method Room Air Room Air Sepsis Recent Fever Within 48 Hours No Sepsis New/Unexplained Change in Mental Status No Sepsis Action Taken by Nursing No Action Required 12/01/22 12:41 12/01/22 13:15 12/01/22 13:33 Temperature Temperature Source Pulse Rate Pulse Rate [Apical] 73 Pulse Rate from SpO2 Sensor Pulse Rhythm [Apical] Regular Pulse Strength [Apical] Normal Respiratory Rate 18 Respiratory Effort / Characteristics Non-Labored Respiratory Depth Normal Respiratory Pattern Regular Blood Pressure Blood Pressure [Left Arm] 86/60 L 99/61 L Blood Pressure Mean Blood Pressure Mean [Left Arm] 68 73 Pulse Oximetry 96 96 Oxygen Delivery Method Room Air Sepsis Recent Fever Within 48 Hours Sepsis New/Unexplained Change in Mental Status Sepsis Action Taken by Nursing 12/01/22 14:07 12/01/22 16:54 12/01/22 15:00 Temperature Temperature Source Pulse Rate 61 Pulse Rate [Apical] 63 Pulse Rate from SpO2 Sensor Pulse Rhythm [Apical] Regular Pulse Strength [Apical] Respiratory Rate 18 Respiratory Effort / Characteristics Non-Labored Respiratory Depth Normal Respiratory Pattern Blood Pressure 101/69 Blood Pressure [Left Arm] 96/60 L Blood Pressure Mean 81 Blood Pressure Mean [Left Arm] 72 Pulse Oximetry 96 Oxygen Delivery Method Room Air Sepsis Recent Fever Within 48 Hours Sepsis New/Unexplained Change in Mental Status Sepsis Action Taken by Nursing 12/01/22 15:00 12/01/22 15:30 12/01/22 15:30 Temperature Temperature Source Pulse Rate Pulse Rate [Apical] Pulse Rate from SpO2 Sensor 67 65 Pulse Rhythm [Apical] Pulse Strength [Apical] Respiratory Rate Respiratory Effort / Characteristics Respiratory Depth Respiratory Pattern Blood Pressure 117/74 Blood Pressure [Left Arm] Blood Pressure Mean 81 Blood Pressure Mean [Left Arm] Pulse Oximetry 98 97 Oxygen Delivery Method Sepsis Recent Fever Within 48 Hours Sepsis New/Unexplained Change in Mental Status Sepsis Action Taken by Nursing 12/01/22 16:33 12/01/22 16:35 12/01/22 16:35 Temperature Temperature Source Pulse Rate 63 63 Pulse Rate [Apical] Pulse Rate from SpO2 Sensor 64 63 Pulse Rhythm [Apical] Pulse Strength [Apical] Respiratory Rate 23 21 Respiratory Effort / Characteristics Respiratory Depth Respiratory Pattern Blood Pressure 116/72 Blood Pressure [Left Arm] Blood Pressure Mean 76 Blood Pressure Mean [Left Arm] Pulse Oximetry 97 97 Oxygen Delivery Method Sepsis Recent Fever Within 48 Hours Sepsis New/Unexplained Change in Mental Status Sepsis Action Taken by Nursing 12/01/22 17:00 12/01/22 17:00 12/01/22 17:30 Temperature Temperature Source Pulse Rate 61 Pulse Rate [Apical] Pulse Rate from SpO2 Sensor 61 Pulse Rhythm [Apical] Pulse Strength [Apical] Respiratory Rate 16 Respiratory Effort / Characteristics Respiratory Depth Respiratory Pattern Blood Pressure 116/70 128/76 Blood Pressure [Left Arm] Blood Pressure Mean 89 105 Blood Pressure Mean [Left Arm] Pulse Oximetry 100 Oxygen Delivery Method Sepsis Recent Fever Within 48 Hours Sepsis New/Unexplained Change in Mental Status Sepsis Action Taken by Nursing 12/01/22 17:30 Temperature Temperature Source Pulse Rate 60 Pulse Rate [Apical] Pulse Rate from SpO2 Sensor 59 L Pulse Rhythm [Apical] Pulse Strength [Apical] Respiratory Rate 16 Respiratory Effort / Characteristics Respiratory Depth Respiratory Pattern Blood Pressure Blood Pressure [Left Arm] Blood Pressure Mean Blood Pressure Mean [Left Arm] Pulse Oximetry 94 Oxygen Delivery Method Sepsis Recent Fever Within 48 Hours Sepsis New/Unexplained Change in Mental Status Sepsis Action Taken by [facility] Medications Current Medication List: was personally reviewed by me Laboratory Data Attestation: I reviewed the patient's lab results. 12/01/22 12:10 12/01/22 12:10 Lab Results 12/01/22 12/01/22 12/01/22 Range/Units 12:10 12:10 12:10 WBC 10.00 (4.8-10.8) K/ul RBC 4.20 L (4.70-6.10) M/uL Hgb 13.5 L (14.0-18.0) g/dl Hct 38.4 L (42.0-52.0) % MCV 91.4 (80.0-100.0) fL MCH 32.1 (25.0-34.0) pg MCHC 35.2 (32.0-36.0) g/dL RDW Std Deviation 43.8 (36.4-46.3) fL RDW Coeff of Tabatha 13.2 (11.5-14.5) % Plt Count 269 (130-400) K/uL MPV 9.4 (9.4-12.4) fL Immature Gran % (Auto) 1.1 % Neut % (Auto) 78.4 % Lymph % (Auto) 10.7 % Boundary % (Auto) 7.9 % Eos % (Auto) 1.7 % Baso % (Auto) 0.2 % Neut # (Auto) 7.84 H (1.40-6.50) K/uL Lymph # (Auto) 1.07 L (1.2-3.4) K/uL Boundary # (Auto) 0.79 H (0.11-0.59) K/uL Eos # (Auto) 0.17 (0-0.50) K/uL Baso # (Auto) 0.02 (0-0.2) K/uL Immature Gran # (Auto) 0.11 (0.01-0.20) K/uL ESR 25 H (0-20) mm/hr PT 10.6 (9.0-12.0) Seconds INR 1.0 (0.9-1.1) Sodium (136-145) mmol/L Potassium (3.5-5.1) mmol/L Chloride (98-107) mmol/L Carbon Dioxide (21-32) mmol/L Anion Gap (3-11) BUN (6-23) mg/dl Creatinine (0.6-1.4) mg/dl Est Cr Clr Drug Dosing ml/min Est GFR ( Amer) ml/min Est GFR (Non-Af Amer) ml/min BUN/Creatinine Ratio (10-20) Glucose (70-99(Fasting)) mg/dl Calcium (8.6-10.3) mg/dl Magnesium (1.7-2.4) mg/dl Total Bilirubin (0.2-1.0) mg/dl AST (13-39) U/L ALT (7-52) U/L Alkaline Phosphatase (34-104) U/L Troponin I High Sens (0-20) pg/ml C-Reactive Protein (0-0.5) mg/dl Total Protein (6.0-8.3) gm/dl Albumin (3.4-5.0) gm/dl Globulin (2.5-4.0) gm/dl Albumin/Globulin Ratio (0.9-2) TSH (0.300-4.500) uIu/ml Adenovirus (PCR) (NotDetected) B. pertussis DNA (PCR) (NotDetected) B.parapertussis DNA PCR (NotDetected) Lyme Disease IgG Ab (Negative) Lyme Disease IgM Ab (Negative) C. pneumoniae DNA (PCR) (NotDetected) Coronavirus OC43 (PCR) (NotDetected) Coronavirus HKU1 (PCR) (NotDetected) Coronavirus 229E (PCR) (NotDetected) SARS-CoV-2 (PCR) (NotDetected) Coronavirus NL63 (PCR) (NotDetected) Human Metapneumovir PCR (NotDetected) Influenza Type A (PCR) (NotDetected) Influenza Type B (PCR) (NotDetected) M. pneumoniae (PCR) (NotDetected) Parainfluenza 1 (PCR) (NotDetected) Parainfluenza 2 (PCR) (NotDetected) Parainfluenza 3 (PCR) (NotDetected) Parainfluenza 4 (PCR) (NotDetected) RSV (PCR) (NotDetected) Entero/Rhino (PCR) (NotDetected) 12/01/22 12/01/22 12/01/22 Range/Units 12:10 12:10 12:10 WBC (4.8-10.8) K/ul RBC (4.70-6.10) M/uL Hgb (14.0-18.0) g/dl Hct (42.0-52.0) % MCV (80.0-100.0) fL MCH (25.0-34.0) pg MCHC (32.0-36.0) g/dL RDW Std Deviation (36.4-46.3) fL RDW Coeff of Tabatha (11.5-14.5) % Plt Count (130-400) K/uL MPV (9.4-12.4) fL Immature Gran % (Auto) % Neut % (Auto) % Lymph % (Auto) % Boundary % (Auto) % Eos % (Auto) % Baso % (Auto) % Neut # (Auto) (1.40-6.50) K/uL Lymph # (Auto) (1.2-3.4) K/uL Boundary # (Auto) (0.11-0.59) K/uL Eos # (Auto) (0-0.50) K/uL Baso # (Auto) (0-0.2) K/uL Immature Gran # (Auto) (0.01-0.20) K/uL ESR (0-20) mm/hr PT (9.0-12.0) Seconds INR (0.9-1.1) Sodium 136 (136-145) mmol/L Potassium 3.9 (3.5-5.1) mmol/L Chloride 104 (98-107) mmol/L Carbon Dioxide 24 (21-32) mmol/L Anion Gap 8 (3-11) BUN 46 H (6-23) mg/dl Creatinine 1.48 H (0.6-1.4) mg/dl Est Cr Clr Drug Dosing 39.0 ml/min Est GFR ( Amer) 50.7 ml/min Est GFR (Non-Af Amer) 43.7 ml/min BUN/Creatinine Ratio 31.1 H (10-20) Glucose 116 H (70-99(Fasting)) mg/dl Calcium 10.0 (8.6-10.3) mg/dl Magnesium 1.6 L (1.7-2.4) mg/dl Total Bilirubin 0.4 (0.2-1.0) mg/dl AST 16 (13-39) U/L ALT 19 (7-52) U/L Alkaline Phosphatase 75 (34-104) U/L Troponin I High Sens 8.9 (0-20) pg/ml C-Reactive Protein 1.53 H (0-0.5) mg/dl Total Protein 6.6 (6.0-8.3) gm/dl Albumin 3.8 (3.4-5.0) gm/dl Globulin 2.8 (2.5-4.0) gm/dl Albumin/Globulin Ratio 1.4 (0.9-2) TSH 1.786 (0.300-4.500) uIu/ml Adenovirus (PCR) (NotDetected) B. pertussis DNA (PCR) (NotDetected) B.parapertussis DNA PCR (NotDetected) Lyme Disease IgG Ab Negative (Negative) Lyme Disease IgM Ab Negative (Negative) C. pneumoniae DNA (PCR) (NotDetected) Coronavirus OC43 (PCR) (NotDetected) Coronavirus HKU1 (PCR) (NotDetected) Coronavirus 229E (PCR) (NotDetected) SARS-CoV-2 (PCR) (NotDetected) Coronavirus NL63 (PCR) (NotDetected) Human Metapneumovir PCR (NotDetected) Influenza Type A (PCR) (NotDetected) Influenza Type B (PCR) (NotDetected) M. pneumoniae (PCR) (NotDetected) Parainfluenza 1 (PCR) (NotDetected) Parainfluenza 2 (PCR) (NotDetected) Parainfluenza 3 (PCR) (NotDetected) Parainfluenza 4 (PCR) (NotDetected) RSV (PCR) (NotDetected) Entero/Rhino (PCR) (NotDetected) 12/01/22 Range/Units 12:42 WBC (4.8-10.8) K/ul RBC (4.70-6.10) M/uL Hgb (14.0-18.0) g/dl Hct (42.0-52.0) % MCV (80.0-100.0) fL MCH (25.0-34.0) pg MCHC (32.0-36.0) g/dL RDW Std Deviation (36.4-46.3) fL RDW Coeff of Tabatha (11.5-14.5) % Plt Count (130-400) K/uL MPV (9.4-12.4) fL Immature Gran % (Auto) % Neut % (Auto) % Lymph % (Auto) % Boundary % (Auto) % Eos % (Auto) % Baso % (Auto) % Neut # (Auto) (1.40-6.50) K/uL Lymph # (Auto) (1.2-3.4) K/uL Boundary # (Auto) (0.11-0.59) K/uL Eos # (Auto) (0-0.50) K/uL Baso # (Auto) (0-0.2) K/uL Immature Gran # (Auto) (0.01-0.20) K/uL ESR (0-20) mm/hr PT (9.0-12.0) Seconds INR (0.9-1.1) Sodium (136-145) mmol/L Potassium (3.5-5.1) mmol/L Chloride (98-107) mmol/L Carbon Dioxide (21-32) mmol/L Anion Gap (3-11) BUN (6-23) mg/dl Creatinine (0.6-1.4) mg/dl Est Cr Clr Drug Dosing ml/min Est GFR ( Amer) ml/min Est GFR (Non-Af Amer) ml/min BUN/Creatinine Ratio (10-20) Glucose (70-99(Fasting)) mg/dl Calcium (8.6-10.3) mg/dl Magnesium (1.7-2.4) mg/dl Total Bilirubin (0.2-1.0) mg/dl AST (13-39) U/L ALT (7-52) U/L Alkaline Phosphatase (34-104) U/L Troponin I High Sens (0-20) pg/ml C-Reactive Protein (0-0.5) mg/dl Total Protein (6.0-8.3) gm/dl Albumin (3.4-5.0) gm/dl Globulin (2.5-4.0) gm/dl Albumin/Globulin Ratio (0.9-2) TSH (0.300-4.500) uIu/ml Adenovirus (PCR) Not Detected (NotDetected) B. pertussis DNA (PCR) Not Detected (NotDetected) B.parapertussis DNA PCR Not Detected (NotDetected) Lyme Disease IgG Ab (Negative) Lyme Disease IgM Ab (Negative) C. pneumoniae DNA (PCR) Not Detected (NotDetected) Coronavirus OC43 (PCR) Not Detected (NotDetected) Coronavirus HKU1 (PCR) Not Detected (NotDetected) Coronavirus 229E (PCR) Not Detected (NotDetected) SARS-CoV-2 (PCR) Not Detected (NotDetected) Coronavirus NL63 (PCR) Not Detected (NotDetected) Human Metapneumovir PCR Not Detected (NotDetected) Influenza Type A (PCR) Not Detected (NotDetected) Influenza Type B (PCR) Not Detected (NotDetected) M. pneumoniae (PCR) Not Detected (NotDetected) Parainfluenza 1 (PCR) Not Detected (NotDetected) Parainfluenza 2 (PCR) Not Detected (NotDetected) Parainfluenza 3 (PCR) Not Detected (NotDetected) Parainfluenza 4 (PCR) Not Detected (NotDetected) RSV (PCR) Not Detected (NotDetected) Entero/Rhino (PCR) Not Detected (NotDetected) Administered Medications Discontinued Medications Acetaminophen (Acetaminophen 500 Mg Tab) 1,000 mg PO NOW STA Stop: 12/01/22 12:49 Last Admin: 12/01/22 12:58 Dose: 1,000 mg Documented By: RAFA Sodium Chloride (Nss 1000ml) 1,000 mls @ 999 mls/hr IV .Q1H1M EVELIA Stop: 12/01/22 13:45 Last Infusion: 12/01/22 14:08 Dose: 0 mls/hr Documented By: Admin: 12/01/22 12:55 Dose: 999 mls/hr Documented By: RAFA Magnesium Sulfate/Dextrose (Magnesium Sulfate / D5w) 1 gm in 100 mls @ 100 mls/hr IV NOW STA Stop: 12/01/22 13:47 Last Infusion: 12/01/22 14:08 Dose: 0 mls/hr Documented By: Admin: 12/01/22 12:58 Dose: 100 mls/hr Documented By: RAFA Sodium Chloride (Nss) 500 mls @ 999 mls/hr IV .Q31M ONE Stop: 12/01/22 15:49 Last Infusion: 12/01/22 17:32 Dose: 0 mls/hr Documented By: Admin: 12/01/22 16:34 Dose: 999 mls/hr Documented By: CAMPOS Ioversol (Optiray 320 100ml) 90 ml IV ONCE ONE Stop: 12/01/22 13:35 Last Admin: 12/01/22 13:35 Dose: 90 ml Documented By: SAM Ondansetron HCl (Ondansetron Inj 2 Mg/Ml 2 Ml Vial) 4 mg IV NOW STA Stop: 12/01/22 12:49 Last Admin: 12/01/22 12:56 Dose: Not Given Documented By: RAFA Imaging Data Radiologist's Impression: Abdomen/Pelvis CT 12/01/22 12:35 CT SCAN OF THE ABDOMEN AND PELVIS WITH IV CONTRAST CLINICAL HISTORY: Mid abdominal pain. COMPARISON STUDY: Abdominal CT dated 01/05/2017 TECHNIQUE: Following the IV administration of 90 cc of Optiray 320, CT scan of the abdomen and pelvis is performed from the lung bases to the proximal femora. Images are reviewed in the axial, sagittal, and coronal planes. IV contrast was administered without complication. A dose lowering technique was utilized adhering to the principles of ALARA. CT DOSE: 1907.15 mGy.cm FINDINGS: Lung bases: The heart is mildly enlarged and without pericardial effusion. The coronary arteries are densely calcified. Emphysematous change is suspected. There is bibasilar scarring/atelectasis. No airspace consolidation or pleural effusion is identified. There is a small hiatal hernia. Liver: The contrast-enhanced liver is normal in size, contour, and attenuation. There is no intrahepatic biliary ductal dilatation. The hepatic veins and portal veins are patent. Scattered hepatic cysts measure up to 3.1 cm. Gallbladder: Unremarkable. Spleen: Normal in size and attenuation. Pancreas: Unremarkable. Adrenal glands: Unremarkable. Kidneys: The contrast enhanced kidneys are normal in size and without hydronephrosis. The kidneys enhance symmetrically. Numerous bilateral renal cysts measure up to 5.7 cm. No enhancing cortical mass lesion is identified. Abdominal vasculature: The abdominal aorta is normal in course and caliber noting advanced atherosclerotic calcification. Bowel: There are numerous small round hypervascular lesions seen involving the distal stomach, duodenum, and proximal small bowel. Platform Worker lesions are seen in the distal stomach on image #97 measuring 10 mm, the distal duodenum on image #171 measuring 12 mm, and involving the left jejunum on image #200 me asuring 6 mm. There is moderate colonic diverticulosis without CT evidence of acute diverticulitis. No bowel obstruction is seen. Postsurgical change is noted in the right colon. The appendix is not identified and presumed surgically absent. Peritoneum: There is no intraperitoneal free air or abdominal ascites. There is a fat-containing umbilical hernia. Lymphadenopathy: None. Pelvic viscera: The prostate gland is diminutive and heterogeneous noting brachytherapy implants in place. The bladder is largely decompressed. The wall appears thickened/trabeculated indicating chronic outlet obstruction. The Skeletal structures: The skeletal structures are osteopenic. There is moderate to advanced lumbosacral spondylosis. Postlaminectomy changes seen in the lumbar spine. A bone graft donor site is seen in the medial right ilium. No lytic or blastic lesions are seen. IMPRESSION: 1. No acute infectious or inflammatory findings are identified in the abdomen or pelvis. 2. There are numerous small ovoid hypervascular lesions involving the distal stomach, duodenum, and proximal jejunum. Several of these were present in 2017; however, these are much better assessed on today's examination due to technique. These are pathologically indeterminant, potentially representing numerous small polyps. These are unlikely to be of acute clinical significance. 3. Cardiomegaly. 4. Colonic diverticulosis without CT evidence of acute diverticulitis. 5. Additional findings as above. ACT 112: Negative or not required by law. Electronically signed by: Grover Trejo M.D. 12/01/2022 2:03 PM Chest X-Ray 12/01/22 12:35 XR chest 1V portable CLINICAL HISTORY: weakness COMPARISON STUDY: Chest CT November 18, 2020. Chest radiograph November 07, 2022. FINDINGS: Lung volumes are normal. Lungs are clear. There is no pneumothorax or pleural effusion. Cardiac size is stable. Mediastinal contours are normal. There is no evidence for pulmonary edema. IMPRESSION: No acute cardiopulmonary findings. ACT 112: Negative or not required by law. Electronically signed by: Gerald Meza M.D. 12/01/2022 1:[address] 12/01/22 12:35 CT head/brain wo con CLINICAL HISTORY: 81 years-old Male with temporal STEWART. Acute headache TECHNIQUE: Multiple axial CT images of the head were obtained without contrast. A dose lowering technique was utilized adhering to the principles of ALARA. With COMPARISON: None. FINDINGS: No acute intracranial hemorrhage, midline shift, intracranial mass, hydrocephalus, territorial ischemia or abnormal extra-axial collection. Involutional changes with mild chronic microvascular ischemic disease. Cerebrovascular calcifications. The calvarium is intact. Mastoid air cells are clear. Mild mucosal thickening of the ethmoid air cells. Prior bilateral lens repair. IMPRESSION: No acute intracranial abnormality. ACT 112: Negative or not required by law. The above report was generated using voice recognition software. It may contain grammatical, syntax or spelling errors. Electronically signed by: Sanjiv Ro M.D. 12/01/2022 1:52 PM Discharge Plan Visit Data Chief Complaint: Illness Stated Complaint: CHEST PAIN, SOB ED Provider: Yuri Jin Discharge Problem: Weakness, Elevated erythrocyte sedimentation rate, CRP elevated, Headache, Abdominal pain Discharge Instructions Interventions: ED Discharge Assessment Last Done: 12/01/22 17:57 Forms Stand Alone Forms: BringIt Prescriptions Prescriptions: No Action memantine [Namenda] 5 mg tablet 5 mg PO BID Qty: 180 3RF albuterol sulfate [Ventolin HFA] 90 mcg/actuation HFA aerosol inhaler 2 puff inhalation Q6H PRN (Reason: shortness of breath or wheezing) Qty: 8.5 5RF Trelegy Ellipta 100-62.5-25 mcg blister with device 1 inh inhalation DAILY Qty: 60 5RF venlafaxine 225 mg tablet extended release 24hr 225 mg PO DAILY Qty: 30 11RF omeprazole 40 mg capsule,delayed release(DR/EC) 40 mg PO DAILY Qty: 30 11RF aspirin 81 mg tablet,delayed release (DR/EC) 81 mg PO DAILY Qty: 30 2RF donepezil [Aricept] 10 mg tablet 10 mg PO DAILY Qty: 90 3RF lisinopril-hydrochlorothiazide 20-25 mg tablet 1 tab PO DAILY Qty: 90 3RF rosuvastatin 40 mg tablet 40 mg PO DAILY Qty: 90 3RF acetaminophen [Tylenol] 325 mg Tablet 650 mg PO QID PRN (Reason: Pain) Referrals Referrals: Kip Bonilla MD [Primary Care Provider] -
[2022-12-01] MEDS ORDERED: SODIUM CHLORIDE 0.9% 1000ML 1,000 ML IV SCH ×2 (12:45→18:24)
[2022-12-01] MEDS ORDERED: ACETAMINOPHEN 500 MG TAB PO STA (12:48)
[2022-12-01] MEDS ORDERED: ONDANSETRON INJ 2 MG/ML 2 ML VIAL IV STA (12:48)
[2022-12-01] MEDS ORDERED: MAGNESIUM SULFATE / D5W 1 GM/100 ML BAG IV STA (12:48)
[2022-12-01 12:57] LABS: Basophils # (auto) 0.02 K/uL (0-0.2); Basophils % (auto) 0.2 %; Eosinophils # (auto) 0.17 K/uL (0-0.50); Eosinophils % (auto) 1.7 %; Hematocrit (blood only) 38.4 % (42.0-52.0); Hemoglobin 13.5 g/dl (14.0-18.0); Immature Granulocytes # (auto) 0.11 K/uL (0.01-0.20); Immature Granulocytes % (auto) 1.1 %; Lymphocytes # (auto) 1.07 K/uL (1.2-3.4); Lymphocytes % (auto) 10.7 %; Mean Corpuscular Hemoglobin 32.1 pg (25.0-34.0); Mean Corpuscular Hgb Conc 35.2 g/dL (32.0-36.0); Mean Corpuscular Volume 91.4 fL (80.0-100.0); Mean Platelet Volume 9.4 fL (9.4-12.4); Monocytes # (auto) 0.79 K/uL (0.11-0.59); Monocytes % (auto) 7.9 %; Neutrophils # (auto) 7.84 K/uL (1.40-6.50); Neutrophils % (auto) 78.4 %; Platelet Count 269 K/uL (130-400); RDW Coefficient of Variation 13.2 % (11.5-14.5); RDW Standard Deviation 43.8 fL (36.4-46.3)
[2022-12-01 13:19] LABS: Troponin I High Sensitivity 8.9 pg/ml (0-20)
[2022-12-01 13:20] LABS: Albumin Globulin Ratio 1.4 (0.9-2); Albumin Level 3.8 gm/dl (3.4-5.0); BUN Creatinine Ratio 31.1 (10-20); Bilirubin,Total 0.4 mg/dl (0.2-1.0); C Reactive Protein 1.53 mg/dl (0-0.5); Est GFR (African American) 50.7 ml/min; Est GFR (Non-African American) 43.7 ml/min; Globulin 2.8 gm/dl (2.5-4.0); Magnesium 1.6 mg/dl (1.7-2.4); Potassium 3.9 mmol/L (3.5-5.1); Total Protein 6.6 gm/dl (6.0-8.3)
[2022-12-01 13:22] LABS: Prothrombin Time 10.6 Seconds (9.0-12.0)
[2022-12-01] MEDS ORDERED: OPTIRAY 320 100ml IV ONE (13:34)
--- NOTE | 2022-12-01 13:38 | XRay Report ---
XR chest 1V portable CLINICAL HISTORY: weakness COMPARISON STUDY: Chest CT November 18, 2020. Chest radiograph November 07, 2022. FINDINGS: Lung volumes are normal. Lungs are clear. There is no pneumothorax or pleural effusion. Car diac size is stable. Mediastinal contours are normal. There is no evidence for pulmonary edema. IMPRESSION: No acute cardiopulmonary findings. ACT 112: Negative or not required by law. Electronically signed by: Gerald Meza M.D. 12/01/2022 1:36 PM
--- NOTE | 2022-12-01 13:53 | CT Scan Report ---
CT head/brain wo con CLINICAL HISTORY: 81 years-old Male with temporal STEWART. Acute headache TECHNIQUE: Multiple axial CT images of the head were obtained without contrast. A dose lowering tech nique was utilized adhering to the principles of ALARA. With COMPARISON: None. FINDINGS: No acute intracranial hemorrhage, midline shift, intracranial mass, hydrocephalus, territorial ischem ia or abnormal extra-axial collection. Involutional changes with mild chronic microvascular ischemic disease. Cerebrovascular calcifications. The calvarium is intact. Mastoid air cells are clear. Mild mucosal thickening of the ethmoid air shiloh ls. Prior bilateral lens repair. IMPRESSION: No acute intracranial abnormality. ACT 112: Negative or not required by law. The above report was generated using voice recognition software. It may contain grammatical, syntax o r spelling errors. Electronically signed by: Sanjiv Ro M.D. 12/01/2022 1:52 PM
[2022-12-01 13:59] LABS: Lyme Ab IgG w/WB Rflx Negative (Negative); Lyme Ab IgM w/WB Rflx Negative (Negative)
--- NOTE | 2022-12-01 14:04 | CT Scan Report ---
CT SCAN OF THE ABDOMEN AND PELVIS WITH IV CONTRAST CLINICAL HISTORY: Mid abdominal pain. COMPARISON STUDY: Abdominal CT dated 01/05/2017 TECHNIQUE: Following the IV administration of 90 cc of Optiray 320, CT scan of the abdomen and pelvi s is performed from the lung bases to the proximal femora. Images are reviewed in the axial, sagittal , and coronal planes. IV contrast was administered without complication. A dose lowering technique wa s utilized adhering to the principles of ALARA. CT DOSE: 1907.15 mGy.cm FINDINGS: Lung bases: The heart is mildly enlarged and without pericardial effusion. The coronary arteries are densely calcified. Emphysematous change is suspected. There is bibasilar scarring/atelectasis. No air space consolidation or pleural effusion is identified. There is a small hiatal hernia. Liver: The contrast-enhanced liver is normal in size, contour, and attenuation. There is no intrahepa tic biliary ductal dilatation. The hepatic veins and portal veins are patent. Scattered hepatic cysts measure up to 3.1 cm. Gallbladder: Unremarkable. Spleen: Normal in size and attenuation. Pancreas: Unremarkable. Adrenal glands: Unremarkable. Kidneys: The contrast enhanced kidneys are normal in size and without hydronephrosis. The kidneys enh ance symmetrically. Numerous bilateral renal cysts measure up to 5.7 cm. No enhancing cortical mass l esion is identified. Abdominal vasculature: The abdominal aorta is normal in course and caliber noting advanced atheroscle rotic calcification. Bowel: There are numerous small round hypervascular lesions seen involving the distal stomach, duoden um, and proximal small bowel. [employer]cology [employer]igator lesions are seen in the distal stomach on image #97 ira uring 10 mm, the distal duodenum on image #171 measuring 12 mm, and involving the left jejunum on jonathan ge #200 measuring 6 mm. There is moderate colonic diverticulosis without CT evidence of acute diverti culitis. No bowel obstruction is seen. Postsurgical change is noted in the right colon. The appendix is not identified and presumed surgically absent. Peritoneum: There is no intraperitoneal free air or abdominal ascites. There is a fat-containing umbi lical hernia. Lymphadenopathy: None. Pelvic viscera: The prostate gland is diminutive and heterogeneous noting brachytherapy implants in p lace. The bladder is largely decompressed. The wall appears thickened/trabeculated indicating chronic outlet obstruction. The Skeletal structures: The skeletal structures are osteopenic. There is moderate to advanced lumbosacra l spondylosis. Postlaminectomy changes seen in the lumbar spine. A bone graft donor site is seen in t he medial right ilium. No lytic or blastic lesions are seen. IMPRESSION: 1. No acute infectious or inflammatory findings are identified in the abdomen or pelvis. 2. There are numerous small ovoid hypervascular lesions involving the distal stomach, duodenum, and p roximal jejunum. Several of these were present in 2017; however, these are much better assessed on to day's examination due to technique. These are pathologically indeterminant, potentially representing numerous small polyps. These are unlikely to be of acute clinical significance. 3. Cardiomegaly. 4. Colonic diverticulosis without CT evidence of acute diverticulitis. 5. Additional findings as above. ACT 112: Negative or not required by law. Electronically signed by: Grover Trejo M.D. 12/01/2022 2:03 PM
[2022-12-01 14:16] LABS: Adenovirus PCR Not Detected (NotDetected); Bordetella parapertussis PCR Not Detected (NotDetected); Bordetella pertussis PCR Not Detected (NotDetected); Chlamydia pneumoniae PCR Not Detected (NotDetected); Coronavirus 229E PCR Not Detected (NotDetected); Coronavirus CoV-2 (COVID19)PCR Not Detected (NotDetected); Coronavirus HKU1 PCR Not Detected (NotDetected); Coronavirus NL63 PCR Not Detected (NotDetected); Coronavirus OC43PCR Not Detected (NotDetected); Human Metapneumovirus PCR Not Detected (NotDetected); Influenza A PCR Not Detected (NotDetected); Influenza B PCR Not Detected (NotDetected); Mycoplasma pneumoniae PCR Not Detected (NotDetected); Parainfluenza Virus 1 PCR Not Detected (NotDetected); Parainfluenza Virus 2 PCR Not Detected (NotDetected); Parainfluenza Virus 3 PCR Not Detected (NotDetected); Parainfluenza Virus 4 PCR Not Detected (NotDetected); Respiratory Syncytial VirusPCR Not Detected (NotDetected); Rhinovirus/Enterovirus PCR Not Detected (NotDetected)
[2022-12-01] MEDS ORDERED: SODIUM CHLORIDE 0.9% 500 ML IV ONE (15:19)
--- NOTE | 2022-12-01 16:35 | History & Physical Report ---
Date of Service December 01, 2022 Assessment & Plan (1) Weakness generalized: Plan: Acute/progressed/unstable - moderate risk - Place in obs to med/surg - Regular diet ordered - CBC & CMP reviewed, normal wbc count, mild MANNIE on CKD - Cr 1.48 (previously 1.37) - Soft BP in ED with systolic ranging 80-90s - Hold Lisinopril/HCTZ - Hydrate with NSS (received 2L in ED), will give mIVF with NSS @ 100 ml/hr x 1 liter - Trend renal fxn with BMP in AM & monitor BP (2) Abnormal CT of the abdomen: Plan: Chronic (dating back to 2017) - unknown risk - Multiple lesions in distal stomach, duodenum, and prox jejunum - Uncertain what these may represent ??polyps - Consult GI, is having intermittent epigastric pain, known GERD and heavy tobacco use, appreciate assistance - will need EGD to further evaluate - Change Omeprazole to Protonix per hospital formulary (3) Dyspnea: Plan: Acute on chronic with known underlying COPD - uncertain risk - Not hypoxic - Wells score 0, very low suspicion of PE - Does have sputum production with his chronic cough - Obtain sputum gram stain & culture and sensitivity - Defer initiation of steroids or antibiotics - PRN Duonebs and Mucinex - CT chest w/o contrast to further evaluate - Ordered procalcitonin (4) Hypomagnesemia: Plan: Acute/unstable - low risk - Mag level reviewed, 1.6 - Treated with Mag Sulfate 1g IV in ED - Repeat in AM (5) Depression with anxiety: Plan: Depression/anxiety/senile dementia - Chronic/stable - Continue Aricept, Namenda, and Venlafaxine (6) Chronic obstructive pulmonary disease: Plan: Chronic/stable - moderate risk - Just recently established with [facility] Pulm group, seen by Dr. Grayson - Resume Daliresp 250mcg daily - Resume Trelegy, added PRN Duonebs Plan Lovenox will be utilized for DVT ppx. AM labs have been ordered. Above plan of care has been discussed with Dr. Monica Banegas who will also see and evaluate this patient. Further orders will be implemented as hospitalization warrants. History of Present Illness Chief Complaint: weakness Primary Care Provider: Kip Bonilla MD Efrain Rubio is an 81 yo M with a pmhx of COPD (emphysema), HTN, hyperlipidemia, GERD, and mild dementia who presents to the ER today c/o progressive weakness over the past month. He reports symptoms seemed to start about a month ago with increased shortness of breath exacerbated by exertion, fatigue, weakness, decreased appetite, headache, and persistent productive cough. He denies fever, chills, chest pain, PND, LE edema, palpitations, or recent long trips. No prior h/o DVT/PE. He was seen in the ER on 11/07, diagnosed with exacerbation of COPD and sent out on a Prednisone burst and course of antibiotics. Despite that, he felt no improvement. His notes that he is to the point where he is no longer able to do activities and spends most of his day laying in bed. He stopped smoking in May 2022 (prior 60-pack year h/o smoking). He has intermittent epigastric pain but denies n/v, hematochezia, melena, or hematemesis. He was recently seen by pulmonology for the first time at the beginning of the month and started on Daliresp with plans for referral to pulmonary rehab but has not yet started that. He was also just seen by cardiology d/t his persistent SIMMONS of which they did not feel was related to cardiac disease. His work up in the ER today was notable for soft BP in the 80- 90s systolic which is not usual for him. He admits he has not been eating/drinking much and continues to take Lisinopril-HCTZ for HTN. His wbc count was normal but did have a minimal left shift, some elevation in his inflammatory markers were noted, and he had a slight bump in his creatinine. He also was found to have multiple lesions on his abd CT in his distal stomach, duodenum, and proximal jejunum that have been there since 2017 but are more pronounced and have not been evaluated to date. He has been hydrated with NSS in the ER and given a dose of Mag Sulfate for his mag level of 1.6 and has been referred to the hospital medicine team for further eval. Allergies Allergy/AdvReac Type Severity Reaction Status Date / Time No Known Allergies Allergy Unknown Verified 12/01/22 15:34 Home Medications Medication Instructions Recorded Confirmed Type aspirin 81 mg tablet,delayed 81 mg PO DAILY #30 tabs 11/14/21 12/01/22 Rx release albuterol sulfate 90 mcg/actuation 2 puff inhalation Q6H PRN 03/01/22 12/01/22 Rx aerosol inhaler (Ventolin HFA) shortness of breath or wheezing #8.5 grams memantine 5 mg tablet (Namenda) 5 mg PO BID #180 tabs 06/26/22 12/01/22 Rx donepezil 10 mg tablet (Aricept) 10 mg PO DAILY #90 tabs 07/05/22 12/01/22 Rx lisinopril 20 1 tab PO DAILY #90 tabs 07/05/22 12/01/22 Rx mg-hydrochlorothiazide 25 mg tablet rosuvastatin 40 mg tablet 40 mg PO DAILY #90 tabs 07/13/22 12/01/22 Rx fluticasone fur. 100 mcg-umeclid 1 inh inhalation DAILY #60 ea 09/07/22 12/01/22 Rx 62.5 mcg-vilant 25 mcg inhalat.powder (Trelegy Ellipta) omeprazole 40 mg capsule,delayed 40 mg PO DAILY #30 caps 11/28/22 12/01/22 Rx release venlafaxine 225 mg tablet,extended 225 mg PO DAILY #30 tabs 11/28/22 12/01/22 Rx release 24 hr acetaminophen 325 mg tablet 650 mg PO QID PRN Pain 12/01/22 12/01/22 History (Tylenol) 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) Chronic back pain Depression Fusion of spine L3-L4 GERD (gastroesophageal reflux disease) History of vitamin D deficiency Hyperlipidemia Hypertension Lumbago Lumbar radiculopathy Lumbar spinal stenosis Lumbosacral facet joint syndrome Mild dementia Osteoarthritis Sacroiliitis Sleep apnea CPAP Urinary urgency Surgical History H/O shoulder surgery RIGHT SHOULDER TENDON REPAIR History of adenoidectomy History of arthroscopy RIGHT KNEE History of bowel resection LAPRASCOPIC R/T VILLOUS ADENOMA History of cataract surgery BILATERAL History of colonoscopy History of discectomy LUMBAR AREA X2 History of lumbar fusion L4-5, non-instrumented History of repair of rotator cuff RIGHT SHOULDER History of tonsillectomy Family History Father Cancer, Onset Age: 80 Hypertension Cardiac disorder Prostate cancer Mother age 97-unknown med problems Brother Cancer -unknown type of CA Brother Back pain Sister Dementia Denies family history of Ovarian cancer Coronary heart disease Breast cancer Colorectal cancer Social History Smoking Status: Former smoker Tobacco Type: Cigarettes Age Started Using Tobacco: 19; packs per day: 2; Cigarettes Per Day: 20; Second Hand Exposure: Yes; Do You Dip or Chew Tobacco: No; Tobacco Cessation Education Requested by Patient: No Hx Alcohol Use: Yes Alcohol type: beer Hx Substance Use: No Preferred Language: Turkmen Communication Ability: Effective Hearing Ability: Hard of Hearing Plating Inspector Required: No Beliefs That Will Affect Care: None marital status: Current Living Situation: Spouse current occupational status: retired current occupation: [employer] in [place] Other Information That Helps Us Care for You: No Feels Safe at Home: Yes Safety Concerns: Feels Safe At This Time Childhood Exposure to Second-Hand Smoke: Yes Diet: regular caffeine: Yes Dental Care, Regularly: Yes Physical Activity Frequency: Does not Exercise Seatbelt Use: always Sunscreen Use: No Assistive Devices: CPAP and Glasses Physical Exam Physical Exam: GENERAL: 81 yo well-developed, well-nourished elderly M. AAOx3. NAD. LUNGS: Clear to auscultation bilaterally w/o W/R/R. CARDIOVASCULAR: Regular rate and rhythm ABDOMEN: Soft, non-distended. BS normoactive x 4 quad. Tender to deep palpation of epigastrium. No rebound tenderness or guarding. EXTREMITIES: No edema. Non-tender. Peripheral pulses +2/4. Results & Data Results & Data Vital Signs (Past 12 Hours) Vital Signs Temp Pulse Pulse Resp BP BP Pulse Ox 12/01/22 14:07 63 18 96/60 L 96 12/01/22 13:33 99/61 L 12/01/22 13:15 73 18 86/60 L 96 12/01/22 12:41 96 12/01/22 12:31 91 H 18 85/56 L 98 12/01/22 12:07 93 H 12/01/22 11:54 36.2 C L 100 H 16 95/69 L 95 O2 Del Method 12/01/22 14:07 Room Air 12/01/22 13:33 12/01/22 13:15 12/01/22 12:41 Room Air 12/01/22 12:31 Room Air 12/01/22 12:07 12/01/22 11:54 Room Air Laboratory Results 12/01/22 12:10 12/01/22 12:10 Diagnostic Findings Abdomen/Pelvis CT 12/01/22 12:35 CT SCAN OF THE ABDOMEN AND PELVIS WITH IV CONTRAST CLINICAL HISTORY: Mid abdominal pain. COMPARISON STUDY: Abdominal CT dated 01/05/2017 TECHNIQUE: Following the IV administration of 90 cc of Optiray 320, CT scan of the abdomen and pelvis is performed from the lung bases to the proximal femora. Images are reviewed in the axial, sagittal, and coronal planes. IV contrast was administered without complication. A dose lowering technique was utilized adhering to the principles of ALARA. CT DOSE: 1907.15 mGy.cm FINDINGS: Lung bases: The heart is mildly enlarged and without pericardial effusion. The coronary arteries are densely calcified. Emphysematous change is suspected. There is bibasilar scarring/atelectasis. No airspace consolidation or pleural effusion is identified. There is a small hiatal hernia. Liver: The contrast-enhanced liver is normal in size, contour, and attenuation. There is no intrahepatic biliary ductal dilatation. The hepatic veins and portal veins are patent. Scattered hepatic cysts measure up to 3.1 cm. Gallbladder: Unremarkable. Spleen: Normal in size and attenuation. Pancreas: Unremarkable. Adrenal glands: Unremarkable. Kidneys: The contrast enhanced kidneys are normal in size and without hydronephrosis. The kidneys enhance symmetrically. Numerous bilateral renal cysts measure up to 5.7 cm. No enhancing cortical mass lesion is identified. Abdominal vasculature: The abdominal aorta is normal in course and caliber noting advanced atherosclerotic calcification. Bowel: There are numerous small round hypervascular lesions seen involving the distal stomach, duodenum, and proximal small bowel. [employer] lesions are seen in the distal stomach on image #97 measuring 10 mm, the distal duodenum on image #171 measuring 12 mm, and involving the left jejunum on image #200 measuring 6 mm. There is moderate colonic diverticulosis without CT evidence of acute diverticulitis. No bowel obstruction is seen. Postsurgical change is noted in the right colon. The appendix is not identified and presumed surgically absent. Peritoneum: There is no intraperitoneal free air or abdominal ascites. There is a fat-containing umbilical hernia. Lymphadenopathy: None. Pelvic viscera: The prostate gland is diminutive and heterogeneous noting brachytherapy implants in place. The bladder is largely decompressed. The wall appears thickened/trabeculated indicating chronic outlet obstruction. The Skeletal structures: The skeletal structures are osteopenic. There is moderate to advanced lumbosacral spondylosis. Postlaminectomy changes seen in the lumbar spine. A bone graft donor site is seen in the medial right ilium. No lytic or bl astic lesions are seen. IMPRESSION: 1. No acute infectious or inflammatory findings are identified in the abdomen or pelvis. 2. There are numerous small ovoid hypervascular lesions involving the distal stomach, duodenum, and proximal jejunum. Several of these were present in 2017; however, these are much better assessed on today's examination due to technique. These are pathologically indeterminant, potentially representing numerous small polyps. These are unlikely to be of acute clinical significance. 3. Cardiomegaly. 4. Colonic diverticulosis without CT evidence of acute diverticulitis. 5. Additional findings as above. ACT 112: Negative or not required by law. Electronically signed by: Grover Trejo M.D. 12/01/2022 2:03 PM Chest X-Ray 12/01/22 12:35 XR chest 1V portable CLINICAL HISTORY: weakness COMPARISON STUDY: Chest CT November 18, 2020. Chest radiograph November 07, 2022. FINDINGS: Lung volumes are normal. Lungs are clear. There is no pneumothorax or pleural effusion. Cardiac size is stable. Mediastinal contours are normal. There is no evidence for pulmonary edema. IMPRESSION: No acute cardiopulmonary findings. ACT 112: Negative or not required by law. Electronically signed by: Gerald Meza M.D. 12/01/2022 1:[address] 12/01/22 12:35 CT head/brain wo con CLINICAL HISTORY: 81 years-old Male with temporal STEWART. Acute headache TECHNIQUE: Multiple axial CT images of the head were obtained without contrast. A dose lowering technique was utilized adhering to the principles of ALARA. With COMPARISON: None. FINDINGS: No acute intracranial hemorrhage, midline shift, intracranial mass, hydrocephalus, territorial ischemia or abnormal extra-axial collection. Involutional changes with mild chronic microvascular ischemic disease. Cerebrovascular calcifications. The calvarium is intact. Mastoid air cells are clear. Mild mucosal thickening of the ethmoid air cells. Prior bilateral lens repair. IMPRESSION: No acute intracranial abnormality. ACT 112: Negative or not required by law. The above report was generated using voice recognition software. It may contain grammatical, syntax or spelling errors. Electronically signed by: Sanjiv Ro M.D. 12/01/2022 1:52 PM Supervising Physician Co-Signing Physician Notes Patient seen and examined in room 382-2, chart reviewed, case discussed with YUMI Mondragon and I agree with the assessment and plan as above. In brief, patient is a pleasant 81yo male with history of COPD, HTN, HLP, GERD and mild dementia presenting with progressive weakness over the last month. Also with increased SIMMONS, weakness, poor appetite, STEWART and persistent cough. Patient with history of smoking 1ppd x 60 years - Quit in May 2022. He has been seen by Pulmonary and started on Daliresp. Is to have pulmonary rehab but has not yet started On physical exam he is sitting up in bed, appears comfortable, NAD, oriented x 3 Skin - warm, dry, intact, no rashes or lesions HEENT - NC/AT, PERRL, MMM, Neck supple Heart - +S1/S2, regular Lungs -CTA, no rales/rhonchi/wheezes Abd - soft, NT/ND Ext - warm, well perfused, no clubbing/cyanosis or edema Neuro - non-focal Labs and images reviewed. Elevation of neutrophil:lymphocyte ratio. Mild elevation of ESR=25, CRP=1.53 Mild elevation of BUN=46 Cr=1.48 CT chest with 4mm LLL pulmonary nodule which is new from prior exam. Assessment/Plan- 1 month of progressive weakness, SIMMONS, cough. Possible progres sanya of COPD. With new nodule on CT chest must consider malignancy. Question vascular findings in the abdomen noted on imaging -IVF, Mg repletion -GI consultation - possible endoscope -Per Fleischner criteria - 4mm solitary nodule in prior smoker - should have followup CT at 12 months -Remainder of plan as above PG Care Time/CCT Total # of Minutes Spent Total Time Spent with Patient: Total time spent is greater than 50% in coordination of care (as documented) at patient's floor/unit and/or counseling patient: Coding Level of Care Code 79923 INT INP/OBS CARE 2/55MIN Diagnoses Weakness generalized R53.[address] of the abdomen R93.5 Dyspnea R06.00 Hypomagnesemia E83.42 Depression with anxiety F41.8 Chronic obstructive pulmonary disease J44.9
[2022-12-01] MEDS ORDERED: ONDANSETRON INJ 2 MG/ML 2 ML VIAL IV PRN (18:24)
[2022-12-01] MEDS ORDERED: MAGNESIUM HYDROXIDE SUSP 30 ML UDC PO PRN (18:24)
[2022-12-01] MEDS ORDERED: POLYETHYLENE (MIRALAX) 17 GM PACK PO PRN (18:24)
[2022-12-01] MEDS ORDERED: ALUMINUM/MAGNESIUM SUSP 30 ML UDC PO PRN (18:24)
[2022-12-01] MEDS ORDERED: ALBUT/IPRATROP 3MG/0.5MG NEB 3 ML VIAL NEB PRN (18:24)
--- NOTE | 2022-12-01 18:29 | CT Scan Report ---
CT SCAN OF THE CHEST WITHOUT IV CONTRAST CLINICAL HISTORY: Dyspnea. Productive cough. Weakness. COMPARISON STUDY: Chest CT scans dated 11/18/2020 and 12/04/2018. Chest x-ray dated 12/01/2022. TECHNIQUE: CT scan of the thorax was performed from the thoracic inlet to the upper abdomen. Images are reviewed in the axial, sagittal, and coronal planes. IV contrast was not administered for this ex amination as per the referring clinician. A dose lowering technique was utilized [facility] DOSE: 608.51 mGy.cm FINDINGS: Thyroid: Imaged portions of the thyroid gland are normal in size and attenuation. Thoracic aorta: There is atherosclerotic calcification of the thoracic aorta, which is normal in waldo ana and demonstrates standard 3-vessel arch anatomy. Heart: The heart is enlarged and without pericardial effusion. The coronary arteries are densely calc ified. Lungs and pleural spaces: There is moderate emphysematous change. No airspace consolidation or pleura l effusion is identified. Scarring/atelectasis is noted at both lung bases. A 4 mm left lower lobe pu lmonary nodule image #59 is new from previous. A 2 mm pleural-based nodule at the right apex seen on image #60 and a 4 mm focus of pleural-based nodularity in the left lower lobe along the major fissure on image 127 are unchanged from prior studies and of doubtful significance. Mediastinum: There is no mediastinal lymphadenopathy. Beena: Not well assessed without IV contrast. Axillae: There is no axillary lymphadenopathy. Upper abdomen: There is a small hiatal hernia. Right lobe hepatic cysts measure up to 3 cm. Bilateral renal cysts are partially visualized and measure up to 5.6 cm. Skeletal structures: The skeletal structures are osteopenic. No lytic or blastic bony lesions are see n. Arthritic change is seen in the shoulders. 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 There are chronic/healed bilateral rib fractures. IMPRESSION: 1. Cardiomegaly and emphysema. 2. There is no airspace consolidation or pleural effusion. 3. A 4 mm left lower lobe pulmonary nodule is pathologically indeterminate but new from the prior exa minations. Follow-up is recommended as per the Fleischner criteria. See below. 4. Additional findings as above. Please refer to below summary of Fleischner criteria recommendations for follow-up of incidental CT n odules (H MacMahon, Guidelines for management of small pulmonary nodules detected on CT scans: A maribel dlay from the Fleischner Society, Radiology 237: [phone].) SOLID NODULES Solitary nodule size: <6 mm * low risk patients: no follow-up needed * high risk patients: optional CT at 12 months Solitary nodule size: 6-8 mm * low risk patients: follow-up at 6-12 months, then consider further follow-up at 18-24 months * high risk patients: initial follow-up CT at 6-12 months and then at 18-24 months if no change Solitary nodule size: >8 mm * either low or high risk patients - consider follow-up CT at 3 months, and/or CT-PET, and/or biopsy Multiple nodules size: <6 mm * low risk patients: no routine follow-up * high risk patients: optional CT at 12 months Multiple nodules size: 6-8 mm * low risk patients: follow-up at 3-6 months, then consider further follow-up at 18-24 months * high risk patients: follow-up at 3-6 months, then at 18-24 months if no change Multiple nodules size: >8 mm * low risk patients: follow-up at 3-6 months, then consider further follow-up at 18-24 months * high risk patients: follow-up at 3-6 months, then at 18-24 months if no change Note: newly detected indeterminate nodule in persons 35 years of age or older. * low risk patients: minimal or absent history of smoking and/or other known risk factors * high risk patients: history of smoking or of other known risk factors (e.g. first degree relative with lung cancer, or exposure to asbestos, radon, uranium) * if a nodule up to 8 mm is partly solid or is ground glass further follow-up is required after 24 m onths to exclude possible slow growing adenocarcinoma (JOSE ANTONIO) SUBSOLID NODULES Solitary pure ground-glass nodule * nodule size <6 mm - no CT follow-up required * nodule size >=6 mm - follow-up CT at 6-12 months, then every 2 years until 5 years Solitary part-solid nodule * nodule size <6 mm - no CT follow-up required * nodule size >=6 mm - follow-up CT at 3-6 months. If unchanged, and solid component remains <6 mm, then annual follow-up for 5 years Multiple subsolid nodules * nodule size <6 mm - follow-up CT at 3-6 months, consider further follow-up at 2 and 4 years if sta ble * nodule size >=6 mm - follow-up CT at 3-6 months, subsequent management based on the most suspiciou s nodule(s) ACT 112: Positive. There are findings on this exam that require communication between the performing entity and the patient following Patient Test Result Information Act ([place] Act 112) guidelines. Electronically signed by: Grover Terjo M.D. 12/01/2022 6:26 PM
[2022-12-01 20:19] LABS: Appearance Urine Clear (Clear); Bilirubin Urine Negative (Negative); Blood Urine Negative (Negative); Color Urine Yellow; Glucose Urine UA Negative (Negative); Ketones Urine Negative (Negative); Leukocyte Esterase Urine Negative (Negative); Nitrite Urine Negative (Negative); Protein Urine Negative (Negative); Specific Gravity Urine 1.044 (1.000-1.030); Urobilinogen Urine Negative (Negative)
[2022-12-01] MEDS: ACETAMINOPHEN 325 MG TAB PO PRN (20:54)
[2022-12-01] MEDS: MEMANTINE HCL 5 MG TAB PO SCH (20:55)
[2022-12-01] MEDS: guaiFENesin 600 MG TABCR PO SCH (20:55)
[2022-12-02 06:43] LABS: Basophils # (auto) 0.02 K/uL (0-0.2); Basophils % (auto) 0.4 %; Eosinophils # (auto) 0.24 K/uL (0-0.50); Eosinophils % (auto) 4.3 %; Hematocrit (blood only) 34.9 % (42.0-52.0); Hemoglobin 12.1 g/dl (14.0-18.0); Immature Granulocytes # (auto) 0.09 K/uL (0.01-0.20); Immature Granulocytes % (auto) 1.6 %; Lymphocytes # (auto) 0.87 K/uL (1.2-3.4); Lymphocytes % (auto) 15.6 %; Mean Corpuscular Hemoglobin 32.3 pg (25.0-34.0); Mean Corpuscular Hgb Conc 34.7 g/dL (32.0-36.0); Mean Corpuscular Volume 93.1 fL (80.0-100.0); Mean Platelet Volume 9.3 fL (9.4-12.4); Monocytes # (auto) 0.58 K/uL (0.11-0.59); Monocytes % (auto) 10.4 %; Neutrophils # (auto) 3.78 K/uL (1.40-6.50); Neutrophils % (auto) 67.7 %; Platelet Count 234 K/uL (130-400); RDW Coefficient of Variation 13.2 % (11.5-14.5); RDW Standard Deviation 45.1 fL (36.4-46.3); Red Blood Count 3.75 M/uL (4.70-6.10); White Blood Count 5.58 K/ul (4.8-10.8)
[2022-12-02 07:08] LABS: Calcium 8.9 mg/dl (8.6-10.3); Creatinine Clr Calc Pharmacy 54.4 ml/min; Est GFR (African American) 72.6 ml/min; Est GFR (Non-African American) 62.6 ml/min; Magnesium 1.8 mg/dl (1.7-2.4); Potassium 4.1 mmol/L (3.5-5.1)
[2022-12-02] MEDS: PANTOprazole 40 MG TAB PO SCH (08:46)
[2022-12-02] MEDS: ROFLUMILAST 500 MCG TAB PO SCH (08:46)
[2022-12-02] MEDS: ROSUVASTATIN CALCIUM 20 MG TAB PO SCH (08:46)
[2022-12-02] MEDS: ASPIRIN 81 MG ECTAB PO SCH (08:46)
[2022-12-02] MEDS: DONEPEZIL HCL 10 MG TAB PO SCH (08:46)
[2022-12-02] MEDS: guaiFENesin 600 MG TABCR PO SCH ×2 (08:47→20:30)
[2022-12-02] MEDS: MEMANTINE HCL 5 MG TAB PO SCH ×2 (08:47→20:30)
[2022-12-02] MEDS: UMECLIDINIUM/VILANTEROL 62.5/25MCG 7 PUFFS/INHALER INH SCH (08:47)
[2022-12-02] MEDS: ENOXAPARIN INJ 40 MG/0.4 ML SYR SQ SCH (08:47)
[2022-12-02] MEDS: VENLAFAXINE HCL XR 75 MG CAPXR PO SCH (08:47)
[2022-12-02] MEDS: FLUTICASONE/VILANTEROL 100/25MCG 14 PUFFS/INHALER INH SCH (08:47)
[2022-12-02] MEDS: ACETAMINOPHEN 325 MG TAB PO PRN ×3 (08:50→20:31)
--- NOTE | 2022-12-02 09:26 | Gastrointestinal Consultation ---
Date of Consultation December 02, 2022 Assessment & Plan (1) Abnormal CT of the abdomen: He has epigastric discomfort and an abnormal CT of the abdomen. It is not uncommon to see gastric polyps in patients on halfway PPI and they do not cause problems for patients however the duodenal and jejunal lesions are not as common. They have been present for 6 years so more than likely are benign. I don't have a clear etiology for his stomach discomfort but it is not a major issue for him. He probably does need an EGD at some point but with his inability to do anything with exertion would make me want to wait until that issue is better controlled. I would probably wait to do his EGD when he is having his colonoscopy done as it will limit risk of sedation to one instance. I will follow and step in if issues become more urgent but since his pain is not a major issue or the reason he was admitted will hold off for now. (2) Abdominal pain: History of Present Illness Reason for Consultation: abdominal pain, abnormal CT scan Attending Physician: Aron Coppola MD History of Present Illness 81 year old man admitted with "being down" for the last several weeks. He has been unable to do any of his normal activities. He is unable to walk 20 feet without getting SOB. He additionally mentions a sharp pain in his upper abdom en. It is there all of the time as a "light pain" and will occasionally get worse. Eating does not make it better and on occasion may make it worse. He had a CT of the abdomen which shows polypoid lesions in the stomach, duodenum and jejunum that were present on a CT in 2017. He is on omeprazole and has been on it for a long time for GERD. He does not recall if he has ever had an EGD. He does know he has a colonoscopy coming up in the next couple of months. He denies weight loss. He initially said he was taking a bit of advil but later said he thought it might by tylenol. His bowel movements are good. Allergies Allergy/AdvReac Type Severity Reaction Status Date / Time No Known Allergies Allergy Unknown Verified 12/01/22 15:34 Home Medications Medication Instructions Recorded Confirmed Type aspirin 81 mg tablet,delayed 81 mg PO DAILY #30 tabs 11/14/21 12/01/22 Rx release albuterol sulfate 90 mcg/actuation 2 puff inhalation Q6H PRN 03/01/22 12/01/22 Rx aerosol inhaler (Ventolin HFA) shortness of breath or wheezing #8.5 grams memantine 5 mg tablet (Namenda) 5 mg PO BID #180 tabs 06/26/22 12/01/22 Rx donepezil 10 mg tablet (Aricept) 10 mg PO DAILY #90 tabs 07/05/22 12/01/22 Rx lisinopril 20 1 tab PO DAILY #90 tabs 07/05/22 12/01/22 Rx mg-hydrochlorothiazide 25 mg tablet rosuvastatin 40 mg tablet 40 mg PO DAILY #90 tabs 07/13/22 12/01/22 Rx fluticasone fur. 100 mcg-umeclid 1 inh inhalation DAILY #60 ea 09/07/22 12/01/22 Rx 62.5 mcg-vilant 25 mcg inhalat.powder (Trelegy Ellipta) omeprazole 40 mg capsule,delayed 40 mg PO DAILY #30 caps 11/28/22 12/01/22 Rx release venlafaxine 225 mg tablet,extended 225 mg PO DAILY #30 tabs 11/28/22 12/01/22 Rx release 24 hr acetaminophen 325 mg tablet 650 mg PO QID PRN Pain 12/01/22 12/01/22 History (Tylenol) Patient History Medical History Anxiety Aortic root dilatation Bulging disc Cancer PROSTATE CANCER, 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) Chronic back pain Depression Fusion of spine L3-L4 GERD (gastroesophageal reflux disease) History of vitamin D deficiency Hyperlipidemia Hypertension Lumbago Lumbar radiculopathy Lumbar spinal stenosis Lumbosacral facet joint syndrome Mild dementia Osteoarthritis Sacroiliitis Sleep apnea CPAP Urinary urgency Surgical History H/O shoulder surgery RIGHT SHOULDER TENDON REPAIR History of adenoidectomy History of arthroscopy RIGHT KNEE History of bowel resection LAPRASCOPIC R/T VILLOUS ADENOMA History of cataract surgery BILATERAL History of colonoscopy History of discectomy LUMBAR AREA X2 History of lumbar fusion L4-5, non-instrumented History of repair of rotator cuff RIGHT SHOULDER History of tonsillectomy Family History Father Cancer, Onset Age: 80 Hypertension Cardiac disorder Prostate cancer Mother age 97-unknown med problems Brother Cancer -unknown type of CA Brother Back pain Sister Dementia Denies family history of Ovarian cancer Coronary heart disease Breast cancer Colorectal cancer Social History Smoking Status: Former smoker Tobacco Type: Cigarettes Age Started Using Tobacco: 19; packs per day: 2; Cigarettes Per Day: 20; Second Hand Exposure: Yes; Do You Dip or Chew Tobacco: No; Tobacco Cessation Education Requested by Patient: No Hx Alcohol Use: Yes Alcohol type: beer Hx Substance Use: No Preferred Language: Urdu Communication Ability: Effective Hearing Ability: Hard of Hearing [employer]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 [employer] Required: No Beliefs That Will Affect Care: None marital status: Current Living Situation: Spouse current occupational status: retired current occupation: [employer] in [place] Other Information That Helps Us Care for You: No Feels Safe at Home: Yes Safety Concerns: Feels Safe At This Time Childhood Exposure to Second-Hand Smoke: Yes Diet: regular caffeine: Yes Dental Care, Regularly: Yes Physical Activity Frequency: Does not Exercise Seatbelt Use: always Sunscreen Use: No Assistive Devices: CPAP and Glasses Review of Systems Review of Systems: All systems reviewed & are unremarkable except as noted in HPI & below Physical Exam Constitutional: WD/WN, vitals as above no acute distress Eyes: PERRL, conjunctivae normal, anicteric sclerae ENMT: external ear and nose normal, oropharynx normal Neck: trachea midline, no thyromegaly Respiratory: normal respiratory effort, lungs clear to auscultation Cardiovascular: RRR, no murmur, no edema Gastrointestinal (Abdomen): Inspection/Auscultation: abdomen normal to inspection and normal bowel sounds Percussion/Palpation: + abdomen tender (left upper abdomen) and abdomen soft; no hepatosplenomegaly Musculoskeletal: Extremities: no cyanosis and no clubbing Skin: no rashes, warm and dry Neurologic: PERRL, EOMI, accommodation nl, no face palsy, no dysarthria Psychiatric: Orientation: alert and oriented x 3 Results & Data Vital Signs (Past 12 Hours) Vital Signs Temp Pulse Pulse Resp BP Pulse Ox O2 Del Method 12/02/22 07:35 36.6 C 64 16 127/79 98 Room Air 06/23/23 22:52 65 21 93 FiO2 12/02/22 07:35 12/01/22 22:52 21 Laboratory Results 12/02/22 12/02/22 12/01/22 Range/Units 06:01 06:01 19:45 WBC 5.58 (4.8-10.8) K/ul RBC 3.75 L (4.70-6.10) M/uL Hgb 12.1 L (14.0-18.0) g/dl Hct 34.9 L (42.0-52.0) % MCV 93.1 (80.0-100.0) fL MCH 32.3 (25.0-34.0) pg MCHC 34.7 (32.0-36.0) g/dL RDW Std Deviation 45.1 (36.4-46.3) fL RDW Coeff of Tabatha 13.2 (11.5-14.5) % Plt Count 234 (130-400) K/uL MPV 9.3 L (9.4-12.4) fL Immature Gran % (Auto) 1.6 % Neut % (Auto) 67.7 % Lymph % (Auto) 15.6 % [place] % (Auto) 10.4 % Eos % (Auto) 4.3 % Baso % (Auto) 0.4 % Neut # (Auto) 3.78 (1.40-6.50) K/uL Lymph # (Auto) 0.87 L (1.2-3.4) K/uL [place] # (Auto) 0.58 (0.11-0.59) K/uL Eos # (Auto) 0.24 (0-0.50) K/uL Baso # (Auto) 0.02 (0-0.2) K/uL Immature Gran # (Auto) 0.09 (0.01-0.20) K/uL ESR (0-20) mm/hr PT (9.0-12.0) Seconds INR (0.9-1.1) Sodium 137 (136-145) mmol/L Potassium 4.1 (3.5-5.1) mmol/L Chloride 108 H (98-107) mmol/L Carbon Dioxide 23 (21-32) mmol/L Anion Gap 6 (3-11) BUN 33 H (6-23) mg/dl Creatinine 1.10 D (0.6-1.4) mg/dl Est Cr Clr Drug Dosing 54.4 ml/min Est GFR ( Amer) 72.6 ml/min Est GFR (Non-Af Amer) 62.6 ml/min BUN/Creatinine Ratio 30.0 H (10-20) Glucose 94 (70-99(Fasting)) mg/dl Calcium 8.9 (8.6-10.3) mg/dl Magnesium 1.8 (1.7-2.4) mg/dl Total Bilirubin (0.2-1.0) mg/dl AST (13-39) U/L ALT (7-52) U/L Alkaline Phosphatase (34-104) U/L Troponin I High Sens (0-20) pg/ml C-Reactive Protein (0-0.5) mg/dl Total Protein (6.0-8.3) gm/dl Albumin (3.4-5.0) gm/dl Globulin (2.5-4.0) gm/dl Albumin/Globulin Ratio (0.9-2) Procalcitonin (0-0.5) ng/ml TSH (0.300-4.500) uIu/ml Urine Color Yellow Urine Appearance Clear (Clear) Urine pH 5.0 (4.5-7.5) Ur Specific [place] 1.044 H (1.000-1.030) Urine Protein Negative (Negative) Urine Glucose (UA) Negative (Negative) Urine Ketones Negative (Negative) Urine Blood Negative (Negative) Urine Nitrite Negative (Negative) Urine Bilirubin Negative (Negative) Urine Urobilinogen Negative (Negative) Ur Leukocyte Esterase Negative (Negative) Adenovirus (PCR) (NotDetected) B. pertussis DNA (PCR) (NotDetected) B.parapertussis DNA PCR (NotDetected) Lyme Disease IgG Ab (Negative) Lyme Disease IgM Ab (Negative) C. pneumoniae DNA (PCR) (NotDetected) Coronavirus OC43 (PCR) (NotDetected) Coronavirus HKU1 (PCR) (NotDetected) Coronavirus 229E (PCR) (NotDetected) SARS-CoV-2 (PCR) (NotDetected) Coronavirus NL63 (PCR) (NotDetected) Human Metapneumovir PCR (NotDetected) Influenza Type A (PCR) (NotDetected) Influenza Type B (PCR) (NotDetected) M. pneumoniae (PCR) (NotDetected) Parainfluenza 1 (PCR) (NotDetected) Parainfluenza 2 (PCR) (NotDetected) Parainfluenza 3 (PCR) (NotDetected) Parainfluenza 4 (PCR) (NotDetected) RSV (PCR) (NotDetected) Entero/Rhino (PCR) (NotDetected) 12/01/22 12/01/22 12/01/22 Range/Units 12:42 12:10 12:10 WBC (4.8-10.8) K/ul RBC (4.70-6.10) M/uL Hgb (14.0-18.0) g/dl Hct (42.0-52.0) % MCV (80.0-100.0) fL MCH (25.0-34.0) pg MCHC (32.0-36.0) g/dL RDW Std Deviation (36.4-46.3) fL RDW Coeff of Tabatha (11.5-14.5) % Plt Count (130-400) K/uL MPV (9.4-12.4) fL Immature Gran % (Auto) % Neut % (Auto) % Lymph % (Auto) % [place] % (Auto) % Eos % (Auto) % Baso % (Auto) % Neut # (Auto) (1.40-6.50) K/uL Lymph # (Auto) (1.2-3.4) K/uL [place] # (Auto) (0.11-0.59) K/uL Eos # (Auto) (0-0.50) K/uL Baso # (Auto) (0-0.2) K/uL Immature Gran # (Auto) (0.01-0.20) K/uL ESR (0-20) mm/hr PT (9.0-12.0) Seconds INR (0.9-1.1) Sodium (136-145) mmol/L Potassium (3.5-5.1) mmol/L Chloride (98-107) mmol/L Carbon Dioxide (21-32) mmol/L Anion Gap (3-11) BUN (6-23) mg/dl Creatinine (0.6-1.4) mg/dl Est Cr Clr Drug Dosing ml/min Est GFR ( Amer) ml/min Est GFR (Non-Af Amer) ml/min BUN/Creatinine Ratio (10-20) Glucose (70-99(Fasting)) mg/dl Calcium (8.6-10.3) mg/dl Magnesium (1.7-2.4) mg/dl Total Bilirubin (0.2-1.0) mg/dl AST (13-39) U/L ALT (7-52) U/L Alkaline Phosphatase (34-104) U/L Troponin I High Sens (0-20) pg/ml C-Reactive Protein (0-0.5) mg/dl Total Protein (6.0-8.3) gm/dl Albumin (3.4-5.0) gm/dl Globulin (2.5-4.0) gm/dl Albumin/Globulin Ratio (0.9-2) Procalcitonin < 0.05 (0-0.5) ng/ml TSH (0.300-4.500) uIu/ml Urine Color Urine Appearance (Clear) Urine pH (4.5-7.5) Ur Specific [place] (1.000-1.030) Urine Protein (Negative) Urine Glucose (UA) (Negative) Urine Ketones (Negative) Urine Blood (Negative) Urine Nitrite (Negative) Urine Bilirubin (Negative) Urine Urobilinogen (Negative) Ur Leukocyte Esterase (Negative) Adenovirus (PCR) Not Detected (NotDetected) B. pertussis DNA (PCR) Not Detected (NotDetected) B.parapertussis DNA PCR Not Detected (NotDetected) Lyme Disease IgG Ab Negative (Negative) Lyme Disease IgM Ab Negative (Negative) C. pneumoniae DNA (PCR) Not Detected (NotDetected) Coronavirus OC43 (PCR) Not Detected (NotDetected) Coronavirus HKU1 (PCR) Not Detected (NotDetected) Coronavirus 229E (PCR) Not Detected (NotDetected) SARS-CoV-2 (PCR) Not Detected (NotDetected) Coronavirus NL63 (PCR) Not Detected (NotDetected) Human Metapneumovir PCR Not Detected (NotDetected) Influenza Type A (PCR) Not Detected (NotDetected) Influenza Type B (PCR) Not Detected (NotDetected) M. pneumoniae (PCR) Not Detected (NotDetected) Parainfluenza 1 (PCR) Not Detected (NotDetected) Parainfluenza 2 (PCR) Not Detected (NotDetected) Parainfluenza 3 (PCR) Not Detected (NotDetected) Parainfluenza 4 (PCR) Not Detected (NotDetected) RSV (PCR) Not Detected (NotDetected) Entero/Rhino (PCR) Not Detected (NotDetected) 12/01/22 12/01/22 12/01/22 Range/Units 12:10 12:10 12:10 WBC (4.8-10.8) K/ul RBC (4.70-6.10) M/uL Hgb (14.0-18.0) g/dl Hct (42.0-52.0) % MCV (80.0-100.0) fL MCH (25.0-34.0) pg MCHC (32.0-36.0) g/dL RDW Std Deviation (36.4-46.3) fL RDW Coeff of Tabatha (11.5-14.5) % Plt Count (130-400) K/uL MPV (9.4-12.4) fL Immature Gran % (Auto) % Neut % (Auto) % Lymph % (Auto) % [place] % (Auto) % Eos % (Auto) % Baso % (Auto) % Neut # (Auto) (1.40-6.50) K/uL Lymph # (Auto) (1.2-3.4) K/uL [place] # (Auto) (0.11-0.59) K/uL Eos # (Auto) (0-0.50) K/uL Baso # (Auto) (0-0.2) K/uL Immature Gran # (Auto) (0.01-0.20) K/uL ESR (0-20) mm/hr PT 10.6 (9.0-12.0) Seconds INR 1.0 (0.9-1.1) Sodium 136 (136-145) mmol/L Potassium 3.9 (3.5-5.1) mmol/L Chloride 104 (98-107) mmol/L Carbon Dioxide 24 (21-32) mmol/L Anion Gap 8 (3-11) BUN 46 H (6-23) mg/dl Creatinine 1.48 H (0.6-1.4) mg/dl Est Cr Clr Drug Dosing 39.0 ml/min Est GFR ( Amer) 50.7 ml/min Est GFR (Non-Af Amer) 43.7 ml/min BUN/Creatinine Ratio 31.1 H (10-20) Glucose 116 H (70-99(Fasting)) mg/dl Calcium 10.0 (8.6-10.3) mg/dl Magnesium 1.6 L (1.7-2.4) mg/dl Total Bilirubin 0.4 (0.2-1.0) mg/dl AST 16 (13-39) U/L ALT 19 (7-52) U/L Alkaline Phosphatase 75 (34-104) U/L Troponin I High Sens 8.9 (0-20) pg/ml C-Reactive Protein 1.53 H (0-0.5) mg/dl Total Protein 6.6 (6.0-8.3) gm/dl Albumin 3.8 (3.4-5.0) gm/dl Globulin 2.8 (2.5-4.0) gm/dl Albumin/Globulin Ratio 1.4 (0.9-2) Procalcitonin (0-0.5) ng/ml TSH 1.786 (0.300-4.500) uIu/ml Urine Color Urine Appearance (Clear) Urine pH (4.5-7.5) Ur Specific [place] (1.000-1.030) Urine Protein (Negative) Urine Glucose (UA) (Negative) Urine Ketones (Negative) Urine Blood (Negative) Urine Nitrite (Negative) Urine Bilirubin (Negative) Urine Urobilinogen (Negative) Ur Leukocyte Esterase (Negative) Adenovirus (PCR) (NotDetected) B. pertussis DNA (PCR) (NotDetected) B.parapertussis DNA PCR (NotDetected) Lyme Disease IgG Ab (Negative) Lyme Disease IgM Ab (Negative) C. pneumoniae DNA (PCR) (NotDetected) Coronavirus OC43 (PCR) (NotDetected) Coronavirus HKU1 (PCR) (NotDetected) Coronavirus 229E (PCR) (NotDetected) SARS-CoV-2 (PCR) (NotDetected) Coronavirus NL63 (PCR) (NotDetected) Human Metapneumovir PCR (NotDetected) Influenza Type A (PCR) (NotDetected) Influenza Type B (PCR) (NotDetected) M. pneumoniae (PCR) (NotDetected) Parainfluenza 1 (PCR) (NotDetected) Parainfluenza 2 (PCR) (NotDetected) Parainfluenza 3 (PCR) (NotDetected) Parainfluenza 4 (PCR) (NotDetected) RSV (PCR) (NotDetected) Entero/Rhino (PCR) (NotDetected) 12/01/22 12/01/22 Range/Units 12:10 12:10 WBC 10.00 (4.8-10.8) K/ul RBC 4.20 L (4.70-6.10) M/uL Hgb 13.5 L (14.0-18.0) g/dl Hct 38.4 L (42.0-52.0) % MCV 91.4 (80.0-100.0) fL MCH 32.1 (25.0-34.0) pg MCHC 35.2 (32.0-36.0) g/dL RDW Std Deviation 43.8 (36.4-46.3) fL RDW Coeff of Tabatha 13.2 (11.5-14.5) % Plt Count 269 (130-400) K/uL MPV 9.4 (9.4-12.4) fL Immature Gran % (Auto) 1.1 % Neut % (Auto) 78.4 % Lymph % (Auto) 10.7 % [place] % (Auto) 7.9 % Eos % (Auto) 1.7 % Baso % (Auto) 0.2 % Neut # (Auto) 7.84 H (1.40-6.50) K/uL Lymph # (Auto) 1.07 L (1.2-3.4) K/uL [place] # (Auto) 0.79 H (0.11-0.59) K/uL Eos # (Auto) 0.17 (0-0.50) K/uL Baso # (Auto) 0.02 (0-0.2) K/uL Immature Gran # (Auto) 0.11 (0.01-0.20) K/uL ESR 25 H (0-20) mm/hr PT (9.0-12.0) Seconds INR (0.9-1.1) Sodium (136-145) mmol/L Potassium (3.5-5.1) mmol/L Chloride (98-107) mmol/L Carbon Dioxide (21-32) mmol/L Anion Gap (3-11) BUN (6-23) mg/dl Creatinine (0.6-1.4) mg/dl Est Cr Clr Drug Dosing ml/min Est GFR ( Amer) ml/min Est GFR (Non-Af Amer) ml/min BUN/Creatinine Ratio (10-20) Glucose (70-99(Fasting)) mg/dl Calcium (8.6-10.3) mg/dl Magnesium (1.7-2.4) mg/dl Total Bilirubin (0.2-1.0) mg/dl AST (13-39) U/L ALT (7-52) U/L Alkaline Phosphatase (34-104) U/L Troponin I High Sens (0-20) pg/ml C-Reactive Protein (0-0.5) mg/dl Total Protein (6.0-8.3) gm/dl Albumin (3.4-5.0) gm/dl Globulin (2.5-4.0) gm/dl Albumin/Globulin Ratio (0.9-2) Procalcitonin (0-0.5) ng/ml TSH (0.300-4.500) uIu/ml Urine Color Urine Appearance (Clear) Urine pH (4.5-7.5) Ur Specific [place] (1.000-1.030) Urine Protein (Negative) Urine Glucose (UA) (Negative) Urine Ketones (Negative) Urine Blood (Negative) Urine Nitrite (Negative) Urine Bilirubin (Negative) Urine Urobilinogen (Negative) Ur Leukocyte Esterase (Negative) Adenovirus (PCR) (NotDetected) B. pertussis DNA (PCR) (NotDetected) B.parapertussis DNA PCR (NotDetected) Lyme Disease IgG Ab (Negative) Lyme Disease IgM Ab (Negative) C. pneumoniae DNA (PCR) (NotDetected) Coronavirus OC43 (PCR) (NotDetected) Coronavirus HKU1 (PCR) (NotDetected) Coronavirus 229E (PCR) (NotDetected) SARS-CoV-2 (PCR) (NotDetected) Coronavirus NL63 (PCR) (NotDetected) Human Metapneumovir PCR (NotDetected) Influenza Type A (PCR) (NotDetected) Influenza Type B (PCR) (NotDetected) M. pneumoniae (PCR) (NotDetected) Parainfluenza 1 (PCR) (NotDetected) Parainfluenza 2 (PCR) (NotDetected) Parainfluenza 3 (PCR) (NotDetected) Parainfluenza 4 (PCR) (NotDetected) RSV (PCR) (NotDetected) Entero/Rhino (PCR) (NotDetected) Diagnostic Findings Abdomen/Pelvis CT 12/01/22 12:35 CT SCAN OF THE ABDOMEN AND PELVIS WITH IV CONTRAST CLINICAL HISTORY: Mid abdominal pain. COMPARISON STUDY: Abdominal CT dated 01/05/2017 TECHNIQUE: Following the IV administration of 90 cc of Optiray 320, CT scan of the abdomen and pelvis is performed from the lung bases to the proximal femora. Images are reviewed in the axial, sagittal, and coronal planes. IV contrast was administered without complication. A dose lowering technique was utilized adhering to the principles of ALARA. CT DOSE: 1907.15 mGy.cm FINDINGS: Lung bases: The heart is mildly enlarged and without pericardial effusion. The coronary arteries are densely calcified. Emphysematous change is suspected. There is bibasilar scarring/atelectasis. No airspace consolidation or pleural effusion is identified. There is a small hiatal hernia. Liver: The contrast-enhanced liver is normal in size, contour, and attenuation. There is no intrahepatic biliary ductal dilatation. The hepatic veins and portal veins are patent. Scattered hepatic cysts measure up to 3.1 cm. Gallbladder: Unremarkable. Spleen: Normal in size and attenuation. Pancreas: Unremarkable. Adrenal glands: Unremarkable. Kidneys: The contrast enhanced kidneys are normal in size and without hydronephrosis. The kidneys enhance symmetrically. Numerous bilateral renal cysts measure up to 5.7 cm. No enhancing cortical mass lesion is identified. Abdominal vasculature: The abdominal aorta is normal in course and caliber noting advanced atherosclerotic calcification. Bowel: There are numerous small round hypervascular lesions seen involving the distal stomach, duodenum, and proximal small bowel. Lawn Service Manager lesions are seen in the distal stomach on image #97 measuring 10 mm, the distal duodenum on image #171 measuring 12 mm, and involving the left jejunum on image #200 measuring 6 mm. There is moderate colonic diverticulosis without CT evidence of acute diverticulitis. No bowel obstruction is seen. Postsurgical change is noted in the right colon. The appendix is not identified and presumed surgically absent. Peritoneum: There is no intraperitoneal free air or abdominal ascites. There is a fat-containing umbilical hernia. Lymphadenopathy: None. Pelvic viscera: The prostate gland is diminutive and heterogeneous noting brachytherapy implants in place. The bladder is largely decompressed. The wall appears thickened/trabeculated indicating chronic outlet obstruction. The Skeletal structures: The skeletal structures are osteopenic. There is moderate to advanced lumbosacral spondylosis. Postlaminectomy changes seen in the lumbar spine. A bone graft donor site is seen in the medial right ilium. No lytic or blastic lesions are seen. IMPRESSION: 1. No acute infectious or inflammatory findings are identified in the abdomen or pelvis. 2. There are numerous small ovoid hypervascular lesions involving the distal stomach, duodenum, and proximal jejunum. Several of these were present in 2017; however, these are much better assessed on today's examination due to technique. These are pathologically indeterminant, potentially representing numerous small polyps. These are unlikely to be of acute clinical significance. 3. Cardiomegaly. 4. Colonic diverticulosis without CT evidence of acute diverticulitis. 5. Additional findings as above. ACT 112: Negative or not required by law. Electronically signed by: Grover Trejo M.D. 12/01/2022 2:03 PM Chest X-Ray 12/01/22 12:35 XR chest 1V portable CLINICAL HISTORY: weakness COMPARISON STUDY: Chest CT November 18, 2020. Chest radiograph November 07, 2022. FINDINGS: Lung volumes are normal. Lungs are clear. There is no pneumothorax or pleural effusion. Cardiac size is stable. Mediastinal contours are normal. There is no evidence for pulmonary edema. IMPRESSION: No acute cardiopulmonary findings. ACT 112: Negative or not required by law. Electronically signed by: Gerald Meza M.D. 12/01/2022 1:[address] 12/01/22 12:35 CT head/brain wo con CLINICAL HISTORY: 81 years-old Male with temporal STEWART. Acute headache TECHNIQUE: Multiple axial CT images of the head were obtained without contrast. A dose lowering technique was utilized adhering to the principles of ALARA. With COMPARISON: None. FINDINGS: No acute intracranial hemorrhage, midline shift, intracranial mass, hydrocephalus, territorial ischemia or abnormal extra-axial collection. Involutional changes with mild chronic microvascular ischemic disease. Cerebrovascular calcifications. The calvarium is intact. Mastoid air cells are clear. Mild mucosal thickening of the ethmoid air cells. Prior bilateral lens repair. IMPRESSION: No acute intracranial abnormality. ACT 112: Negative or not required by law. The above report was generated using voice recognition software. It may contain grammatical, syntax or spelling errors. Electronically signed by: Sanjiv Ro M.D. 12/01/2022 1:[address] 12/01/22 16:31 CT SCAN OF THE CHEST WITHOUT IV CONTRAST CLINICAL HISTORY: Dyspnea. Productive cough. Weakness. COMPARISON STUDY: Chest CT scans dated 11/18/2020 and 12/04/2018. Chest x-ray dated 12/01/2022. TECHNIQUE: CT scan of the thorax was performed from the thoracic inlet to the upper abdomen. Images are reviewed in the axial, sagittal, and coronal planes. IV contrast was not administered for this examination as per the referring clinician. A dose lowering technique was utilized adhering to the principles of ALARA. CT DOSE: 608.51 mGy.cm FINDINGS: Thyroid: Imaged portions of the thyroid gland are normal in size and attenuation. Thoracic aorta: There is atherosclerotic calcification of the thoracic aorta, which is normal in caliber and demonstrates standard 3-vessel arch anatomy. Heart: The heart is enlarged and without pericardial effusion. The coronary arteries are densely calcified. Lungs and pleural spaces: There is moderate emphysematous change. No airspace consolidation or pleural effusion is identified. Scarring/atelectasis is noted at both lung bases. A 4 mm left lower lobe pulmonary nodule image #59 is new from previous. A 2 mm pleural-based nodule at the right apex seen on image #60 and a 4 mm focus of pleural-based nodularity in the left lower lobe along the major fissure on image 127 are unchanged from prior studies and of doubtful significance. Mediastinum: There is no mediastinal lymphadenopathy. Beena: Not well assessed without IV contrast. Axillae: There is no axillary lymphadenopathy. Upper abdomen: There is a small hiatal hernia. Right lobe hepatic cysts measure up to 3 cm. Bilateral renal cysts are partially visualized and measure up to 5.6 cm. Skeletal structures: The skeletal structures are osteopenic. No lytic or blastic bony lesions are seen. Arthritic change is seen in the shoulders. 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 There are chronic/healed bilateral rib fractures. IMPRESSION: 1. Cardiomegaly and emphysema. 2. There is no airspace consolidation or pleural effusion. 3. A 4 mm left lower lobe pulmonary nodule is pathologically indeterminate but new from the prior examinations. Follow-up is recommended as per the Fleischner criteria. See below. 4. Additional findings as above. Please refer to below summary of Fleischner criteria recommendations for follow- up of incidental CT nodules (Ana Paula Peterson, Guidelines for management of small pulmonary nodules detected on CT scans: A statement from the [employer], Radiology 237: [phone].) SOLID NODULES Solitary nodule size: <6 mm * low risk patients: no follow-up needed * high risk patients: optional CT at 12 months Solitary nodule size: 6-8 mm * low risk patients: follow-up at 6-12 months, then consider further follow-up at 18-24 months * high risk patients: initial follow-up CT at 6-12 months and then at 18-24 months if no change Solitary nodule size: >8 mm * either low or high risk patients - consider follow-up CT at 3 months, and/or CT-PET, and/or biopsy Multiple nodules size: <6 mm * low risk patients: no routine follow-up * high risk patients: optional CT at 12 months Multiple nodules size: 6-8 mm * low risk patients: follow-up at 3-6 months, then consider further follow-up at 18-24 months * high risk patients: follow-up at 3-6 months, then at 18-24 months if no change Multiple nodules size: >8 mm * low risk patients: follow-up at 3-6 months, then consider further follow-up at 18-24 months * high risk patients: follow-up at 3-6 months, then at 18-24 months if no change Note: newly detected indeterminate nodule in persons 35 years of age or older. * low risk patients: minimal or absent history of smoking and/or other known risk factors * high risk patients: history of smoking or of other known risk factors (e.g. first degree relative with lung cancer, or exposure to asbestos, radon, uranium) * if a nodule up to 8 mm is partly solid or is ground glass further follow-up is required after 24 months to exclude possible slow growing adenocarcinoma (JOSE ANTONIO) SUBSOLID NODULES Solitary pure ground-glass nodule * nodule size <6 mm - no CT follow-up required * nodule size >=6 mm - follow-up CT at 6-12 months, then every 2 years until 5 years Solitary part-solid nodule * nodule size <6 mm - no CT follow-up required * nodule size >=6 mm - follow-up CT at 3-6 months. If unchanged, and solid component remains <6 mm, then annual follow-up for 5 years Multiple subsolid nodules * nodule size <6 mm - follow-up CT at 3-6 months, consider further follow-up at 2 and 4 years if stable * nodule size >=6 mm - follow-up CT at 3-6 months, subsequent management based on the most suspicious nodule(s) ACT 112: Positive. There are findings on this exam that require communication between the performing entity and the patient following Patient Test Result Information Act ([place] Act 112) guidelines. Electronically signed by: Grover Trejo M.D. 12/01/2022 6:26 PM (2) Abdominal pain Abdominal location: periumbilical Qualified Code(s): R10.33 - Periumbilical pain
--- NOTE | 2022-12-02 16:41 | Electrocardiogram Report ---
Test Reason : Blood Pressure : / mmHG Vent. Rate : 093 BPM Atrial Rate : 093 BPM P-R Int : 178 ms QRS Dur : 066 ms QT Int : 338 ms P-R-T Axes : 064 -34 069 degrees QTc Int : 420 ms Normal sinus rhythm Left axis deviation Low voltage QRS Anteroseptal infarct (cited on or before 07-NOV-2022) Abnormal ECG When compared with ECG of 07-NOV-2022 12:41, Questionable change in initial forces of Septal leads Confirmed by Giuseppe Rivera ([id number]) on 12/02/2022 4:40:32 PM Referred By: REFERRED SELF Confirmed By:Giuseppe Rivera
--- NOTE | 2022-12-02 17:40 | Hospitalist Progress Note ---
Date of Service December 02, 2022 Assessment & Plan (1) Bilateral headaches: Plan: he has tenderness over both temporal arteries on exam today. headaches have been present for weeks. this coincides with his fatigue, weakness, poor appetite, shortness of breath, myalgias, etc. in light of his systemic symptoms along with headaches advise MRI brain - r/o tumor, ICH, etc. we will also be able to see his sinuses on MRI. if MRI is unrevealing would empirically treat for temporal arteritis with high- dose steroids and obtain gen surg consult for consideration of temporal artery biopsy. again, the systemic symptoms, elevated ESR/CRP, and the headaches are concerning. (2) Elevated erythrocyte sedimentation rate: Plan: see above elevated ESR is also present along-side mildly elevated CRP (3) Weakness: Plan: could be any number of factors - recent rhinovirus infection, nutritional deficiencies, anemia, systemic autoimmune or vasculitic disorders, electrolyte disturbances, etc he had iron deficiency and b12 deficiency in 05/2022 - recheck FE studies, B12 level, and B1 level see #1 above in addition to the nutritional labs obtain CPK, anaplasmosis smear (4) Abdominal pain: Plan: high epigastric region gastritis? esophagitis? other? see #5 below add carafate to his PPI appreciate GI consultation - at some point needs EGD + colonoscopy of note - lipase, LFTs are wnl pancreas, liver, and gall bladder all appear wnl on CT yesterday (5) Abnormal CT of the abdomen: Plan: 12/01 CT a/p with - "numerous small ovoid hypervascular lesions involving the distal stomach, duodenum, and proximal jejunum. Several of these were present in 2017" seen by Dr Thuan Mukherjee today -- no plans for EGD at this time, but likely to need one in the future - along with colonoscopy he is already on PPI therapy at home add carafate 1gm ac/hs for his epigastric pain (6) Hypomagnesemia: Plan: replaced resolved (7) Acute kidney injury superimposed on chronic kidney disease: Plan: Cr 1.48 at admission now Cr 1.1 MANNIE resolved BMP am for stability (8) Senile dementia: Plan: noted on records recheck B12 and B1 levels cont aricept cont namenda (9) Hypertension: (10) Gastroesophageal reflux disease: Plan: cont PPI add carafate qid (11) Chronic obstructive pulmonary disease: Plan: with recent exacerbation due to rhinovirus infection late October 2022 suspect that at least some of his lingering pulmonary symptoms are due in part to his rhinovirus infection with resulting COPD flare cont inhalers, etc CT chest w/o pneumonia (12) Benign prostate hyperplasia: (13) Rhinovirus infection: Plan: 10/2022 sputum cx sent to check for any bacterial process (14) Anemia: Plan: B12, iron studies c/w deficiency of each -- 05/2022 repeat all nutritional labs in am replace as needed Plan extensively updated by phone this evening DVT proph - lovenox daily Admission and Anticipated Discharge Date Admission Date: December 01, 2022 Subjective patient resting comfortably in bed mentions the following complaints - 1. headaches - bitemporal, present throughout the day, often wakes up with them. Denies photophobia or phonophobia. They are not located over either eye. He was dx with cluster headaches many years ago at [facility] but these feel much different. Headaches present for several weeks - perhaps longer. Denies pain in the back of the head or neck. 2. fatigue - frequent napping, sleeping long hours. 3. myalgias - b/l arms and b/l thighs, associated with weakness - also present for several weeks. 4. mild upper abdominal pain - typically worsened by eating. Pain comes on within seconds of eating. denies RUQ abd pain. 5. ongoing cough, dyspnea, dyspnea on exertion. Was dx with rhinovirus infection in late October. 6. poor appetite - present for several weeks. The nursing flowsheets document 75-100% of meals but he states "I usually eat way more than what is being s erved." Review of Systems Review of Systems: gen - no fevers or chills cv - no chest pain pulm - cough, dyspnea, [facility] - no vomiting Physical Exam Physical Exam: gen - NAD head - no pain to palpation of any sinus; bitemporal tenderness to palpation; no bruit or swelling over either temporal artery neck - no JVD mouth - MMM, no thrush heart - 2/6 systolic murmur LSB, RRR, s1 s2 lungs - occasional end-exp wheeze, no rales abd - soft; mildly tender upper epigastric region; no tenderness RUQ; BS+; no distension; small lipoma(?) upper abdomen just to right of midline, freely movable ext - no edema, pulses 2+ b/l Results & Data Results & Data Vital Signs (Past 12 Hours) Vital Signs Temp Pulse Resp BP Pulse Ox O2 Del Method 12/02/22 15:23 37.0 C 68 16 110/68 98 Room Air 12/02/22 07:40 Room Air 12/02/22 07:35 36.6 C 64 16 127/79 98 Room Air Laboratory Results Laboratory Results - last 24 hr 12/02/22 12/02/22 06:01 06:01 WBC 5.58 RBC 3.75 L Hgb 12.1 L Hct 34.9 L MCV 93.1 MCH 32.3 MCHC 34.7 RDW Std Deviation 45.1 RDW Coeff of Tabatha 13.2 Plt Count 234 MPV 9.3 L Immature Gran % (Auto) 1.6 Neut % (Auto) 67.7 Lymph % (Auto) 15.6 [place] % (Auto) 10.4 Eos % (Auto) 4.3 Baso % (Auto) 0.4 Neut # (Auto) 3.78 Lymph # (Auto) 0.87 L [place] # (Auto) 0.58 Eos # (Auto) 0.24 Baso # (Auto) 0.02 Immature Gran # (Auto) 0.09 Sodium 137 Potassium 4.1 Chloride 108 H Carbon Dioxide 23 Anion Gap 6 BUN 33 H Creatinine 1.10 D Est Cr Clr Drug Dosing 54.4 Est GFR ( Amer) 72.6 Est GFR (Non-Af Amer) 62.6 BUN/Creatinine Ratio 30.0 H Glucose 94 Calcium 8.9 Magnesium 1.8 PG Care Time/CCT Total # of Minutes Spent Total Time Spent with Patient: Total time spent is greater than 50% in coordination of care (as documented) at patient's floor/unit and/or counseling patient: Coding Level of Care Code 22494 SUB INP/OBS CARE 3/50MIN Diagnoses Bilateral headaches R51.9 Elevated erythrocyte sedimentation rate R70.0 Weakness R53.1 Abdominal pain R10.33 Abdominal location: periumbilical Abnormal CT of the abdomen R93.5 Hypomagnesemia E83.42 Acute kidney injury superimposed on chronic kidney disease N17.9; N18.9 Senile dementia F03.90 Hypertension I10 Gastroesophageal reflux disease K21.9 Chronic obstructive pulmonary disease J44.9 Benign prostate hyperplasia N40.0 Rhinovirus infection B34.8 Anemia D64.9 (4) Abdominal pain Abdominal location: periumbilical Qualified Code(s): R10.33 - Periumbilical pain
[2022-12-02] MEDS: SUCRALFATE 1 GM/10 ML UDC PO SCH ×2 (18:35→20:30)
[2022-12-03] MEDS: ACETAMINOPHEN 325 MG TAB PO PRN (07:36)
[2022-12-03] MEDS: guaiFENesin 600 MG TABCR PO SCH ×2 (07:37→20:41)
[2022-12-03] MEDS: MEMANTINE HCL 5 MG TAB PO SCH ×2 (07:38→20:42)
[2022-12-03] MEDS: ASPIRIN 81 MG ECTAB PO SCH (07:38)
[2022-12-03] MEDS: PANTOprazole 40 MG TAB PO SCH (07:38)
[2022-12-03] MEDS: ROFLUMILAST 500 MCG TAB PO SCH (07:39)
[2022-12-03] MEDS: ROSUVASTATIN CALCIUM 20 MG TAB PO SCH (07:39)
[2022-12-03] MEDS: DONEPEZIL HCL 10 MG TAB PO SCH (07:40)
[2022-12-03] MEDS: FLUTICASONE/VILANTEROL 100/25MCG 14 PUFFS/INHALER INH SCH (07:40)
[2022-12-03] MEDS: VENLAFAXINE HCL XR 75 MG CAPXR PO SCH (07:41)
[2022-12-03] MEDS: SUCRALFATE 1 GM/10 ML UDC PO SCH ×4 (07:42→20:41)
[2022-12-03] MEDS: ENOXAPARIN INJ 40 MG/0.4 ML SYR SQ SCH (07:42)
[2022-12-03] MEDS: UMECLIDINIUM/VILANTEROL 62.5/25MCG 7 PUFFS/INHALER INH SCH (07:42)
[2022-12-03 07:44] LABS: BUN Creatinine Ratio 20.2 (10-20); Calcium 9.6 mg/dl (8.6-10.3); Creatinine Clr Calc Pharmacy 57.5 ml/min; Est GFR (African American) 77.7 ml/min
[2022-12-03 08:04] LABS: Ferritin 55.6 ng/ml (8-388)
--- NOTE | 2022-12-03 08:54 | Gastroenterology Progress Note ---
Date of Service December 03, 2022 Assessment & Plan (1) Abnormal CT of the abdomen: Plan: He has no GI complaints at this time. I again advised him to have EGD at time of his outpatient colonoscopy which he thinks is scheduled. I have nothing further to offer at this time so will sign off. Please call if needed Admission and Anticipated Discharge Date Admission Date: December 01, 2022 Subjective Feeling well. Breathing better. No abdominal pain now Physical Exam Physical Exam: He looks well Results & Data Vital Signs (Past 12 Hours) Vital Signs Temp Pulse Pulse Resp BP Pulse Ox O2 Del Method 12/03/22 07:16 36.5 C 78 18 153/99 H 98 Room Air 12/03/22 02:52 19 94 12/02/22 22:23 36.7 C 63 18 102/65 97 Room Air 12/02/22 21:30 65 20 95 FiO2 12/03/22 07:16 12/03/22 02:52 21 12/02/22 22:23 12/02/22 21:30 21
[2022-12-03] MEDS ORDERED: GADOBUTROL 10ML VIAL IV ONE (09:51)
--- NOTE | 2022-12-03 10:17 | Magnetic Resonance Report ---
MRI OF THE BRAIN WITHOUT AND WITH IV CONTRAST CLINICAL HISTORY: Bitemporal headaches. COMPARISON STUDY: MRI of the brain November 18, [address] December 01, 2022. TECHNIQUE: Utilizing a 1.5 Barbra magnet and dedicated coil, multiplanar, multiecho imaging of the br ain was performed pre and postcontrast administration. IV administration of 8 mL of Gadavist contras t was uneventful. FINDINGS: There are no foci of restricted diffusion to suggest acute infarct. No acute intracranial h emorrhage, midline shift or mass effect is present. Ventricular system is unremarkable. Basal cistern s are patent. There are no extra-axial collections. No intracranial mass or pathologic enhancement is present. Flow-voids for the major intracranial vessels are present. Punctate white matter T2 hyperin tense focus within the right frontal lobe on coronal FLAIR image of is unchanged since previous MRI. This is of no significance. There is no significant parenchymal signal abnormality. The appeara nce of the brain is unchanged. Orbits are unremarkable. There is no mastoid fluid. There is moderate mucosal thickening of the left frontal and anterior left ethmoid air cells. IMPRESSION: 1. No acute intracranial findings. No change in appearance of the brain since MRI of November 18, 2020. 2. Moderate left frontal and anterior left ethmoid sinus mucosal thickening. ACT 112: Negative or not required by law. Electronically signed by: Gerald Meza M.D. 12/03/2022 10:14 AM
[2022-12-03] MEDS: predniSONE 20 MG TAB PO SCH (12:15)
--- NOTE | 2022-12-03 20:03 | Hospitalist Progress Note ---
Date of Service December 03, 2022 Assessment & Plan (1) Bilateral headaches: Plan: has tenderness over both temporal arteries. headaches have been present for weeks. this coincides with his fatigue, weakness, poor appetite, shortness of breath, myalgias, etc. MRI brain negative - no acute or chronic CVA, minimal mucosal thickening but no sinusitis. recent sed rate/crp mildly high. consulted Dr Arboleda from surgery for consideration of temporal artery bx. while awaiting such along with pathology will place on empiric steroids - prednisone 60mg/day. (2) Elevated erythrocyte sedimentation rate: Plan: see above elevated ESR is also present along-side mildly elevated CRP (3) Weakness: Plan: could be any number of factors - recent rhinovirus infection, nutritional deficiencies, anemia, systemic autoimmune or vasculitic disorders, electrolyte disturbances, etc he had iron deficiency and b12 deficiency in 05/2022 - rechecked FE studies, B12 level - both wnl see #1 above CPK wnl anaplasmosis smear negative to have temporal artery bx tomorrow with Dr Arboleda (4) Abdominal pain: Plan: high epigastric region improved s/p adding carafate to his PPI gastritis? esophagitis? other? appreciate GI consultation - at some point needs EGD + colonoscopy - both to be done as outpatient of note - lipase, LFTs are wnl pancreas, liver, and gall bladder all appear wnl on CT (5) Abnormal CT of the abdomen: Plan: 12/01 CT a/p with - "numerous small ovoid hypervascular lesions involving the distal stomach, duodenum, and proximal jejunum. Several of these were present in 2017" seen by Dr Thuan Mukherjee today -- no plans for EGD at this time, but likely to need one in the future - along with colonoscopy he is already on PPI therapy at home added carafate 1gm ac/hs for his epigastric pain will need close f/u post-d/c for these GI issues (6) Hypomagnesemia: Plan: replaced resolved (7) Acute kidney injury superimposed on chronic kidney disease: Plan: Cr 1.48 at admission now Cr 1 MANNIE resolved (8) Senile dementia: Plan: noted on records rechecked B12 level - wnl cont aricept cont namenda (9) Hypertension: Plan: majority of BPs are wnl at this time (10) Gastroesophageal reflux disease: Plan: cont PPI added carafate qid (11) Chronic obstructive pulmonary disease: Plan: with recent exacerbation due to rhinovirus infection late October 2022 suspect that at least some of his lingering pulmonary symptoms are due in part to his rhinovirus infection with resulting COPD flare cont inhalers, etc CT chest w/o pneumonia (12) Benign prostate hyperplasia: (13) Rhinovirus infection: Plan: 10/2022 sputum cx sent to check for any bacterial process - thus far negative (14) Anemia: Plan: B12, iron studies c/w deficiency of each -- 05/2022 rechecked both - indices acceptable Plan extensively updated by phone this evening once again DVT proph - lovenox to be held for TA bx can likely d/c home tomorrow following his biopsy Admission and Anticipated Discharge Date Admission Date: December 03, 2022 Subjective abdominal pain is improved/resolved able to tolerate food today breathing is better walking the hallways more easily without significant dyspnea headaches remain - but not as severe today myalgias also improved seen by gen surg for possible TA biopsy - he is agreeable to such Review of Systems Review of Systems: gen - no fevers cv - no chest pain pulm - minimal cough Physical Exam Physical Exam: gen - NAD, looks better today head - no pain to palpation of any sinus; bitemporal tenderness to palpation remains (not as severe, but [id number] still present) neck - no JVD mouth - MMM, no thrush heart - 2/6 systolic murmur LSB, RRR, s1 s2 lungs - CTA b/l, no rales, no wheeze, airation fair abd - soft; NT; BS+; no distension; small lipoma(?) upper abdomen just to right of midline, freely movable ext - no edema, pulses 2+ b/l psych - awake, alert Results & Data Results & Data Vital Signs (Past 12 Hours) Vital Signs Temp Pulse Resp BP Pulse Ox O2 Del Method 12/03/22 15:41 36.4 C L 60 18 123/77 98 Room Air Laboratory Results Laboratory Results - last 24 hr 12/03/22 12/03/22 12/03/22 06:47 06:47 06:47 Sodium 138 Potassium 4.0 Chloride 106 Carbon Dioxide 25 Anion Gap 7 BUN 21 Creatinine 1.04 Est Cr Clr Drug Dosing 57.5 Est GFR ( Amer) 77.7 Est GFR (Non-Af Amer) 67.0 BUN/Creatinine Ratio 20.2 H Glucose 103 H Calcium 9.6 Iron 84 TIBC 341 Unsaturated IBC 257 Transferrin % Sat 25 Ferritin 55.6 Total Creatine Kinase 111 Vitamin B12 715 Anaplasma Smear See Comment PG Care Time/CCT Total # of Minutes Spent Total Time Spent with Patient: Total time spent is greater than 50% in coordination of care (as documented) at patient's floor/unit and/or counseling patient: Coding Level of Care Code 81201 SUB INP/OBS CARE 2/35MIN Diagnoses Bilateral headaches R51.9 Elevated erythrocyte sedimentation rate R70.0 Weakness R53.1 Abdominal pain R10.33 Abdominal location: periumbilical Abnormal CT of the abdomen R93.5 Hypomagnesemia E83.42 Acute kidney injury superimposed on chronic kidney disease N17.9; N18.9 Senile dementia F03.90 Hypertension I10 Gastroesophageal reflux disease K21.9 Chronic obstructive pulmonary disease J44.9 Benign prostate hyperplasia N40.0 Rhinovirus infection B34.8 Anemia D64.9 (4) Abdominal pain Abdominal location: periumbilical Qualified Code(s): R10.33 - Periumbilical pain
--- NOTE | 2022-12-03 21:51 | Surgery Consultation ---
Date of Consultation December 03, 2022 Assessment & Plan (1) Headache: Plan At this point the procedure was explained to the patient including what we are looking for and the procedure itself We will proceed with bilateral temporal artery biopsy for tomorrow All question answered History of Present Illness Reason for Consultation: Rule out temporal arteritis Attending Physician: Aron Coppola MD History of Present Illness 81-year-old gentleman who recently has had significant incapacitating pain point he lays down to try to ameliorate it The pain is localized in both temporal areas States that he has had a trial of steroids by his primary physician but he and his do not recall the dosage that he was given and for how long Allergies Allergy/AdvReac Type Severity Reaction Status Date / Time No Known Allergies Allergy Unknown Verified 12/01/22 15:34 Home Medications Medication Instructions Recorded Confirmed Type aspirin 81 mg tablet,delayed 81 mg PO DAILY #30 tabs 11/14/21 12/01/22 Rx release albuterol sulfate 90 mcg/actuation 2 puff inhalation Q6H PRN 03/01/22 12/01/22 Rx aerosol inhaler (Ventolin HFA) shortness of breath or wheezing #8.5 grams memantine 5 mg tablet (Namenda) 5 mg PO BID #180 tabs 06/26/22 12/01/22 Rx donepezil 10 mg tablet (Aricept) 10 mg PO DAILY #90 tabs 07/05/22 12/01/22 Rx lisinopril 20 1 tab PO DAILY #90 tabs 07/05/22 12/01/22 Rx mg-hydrochlorothiazide 25 mg tablet rosuvastatin 40 mg tablet 40 mg PO DAILY #90 tabs 07/13/22 12/01/22 Rx fluticasone fur. 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) Chronic back pain Depression Fusion of spine L3-L4 GERD (gastroesophageal reflux disease) Headache History of vitamin D deficiency Hyperlipidemia Hypertension Lumbago Lumbar radiculopathy Lumbar spinal stenosis Lumbosacral facet joint syndrome Mild dementia Osteoarthritis Sacroiliitis Sleep apnea CPAP Urinary urgency Surgical History H/O shoulder surgery RIGHT SHOULDER TENDON REPAIR History of adenoidectomy History of arthroscopy RIGHT KNEE History of bowel resection LAPRASCOPIC R/T VILLOUS ADENOMA History of cataract surgery BILATERAL History of colonoscopy History of discectomy LUMBAR AREA X2 History of lumbar fusion L4-5, non-instrumented History of repair of rotator cuff RIGHT SHOULDER History of tonsillectomy Family History Father Cancer, Onset Age: 80 Hypertension Cardiac disorder Prostate cancer Mother age 97-unknown med problems Brother Cancer -unknown type of CA Brother Back pain Sister Dementia Denies family history of Ovarian cancer Coronary heart disease Breast cancer Colorectal cancer Social History Smoking Status: Former smoker Tobacco Type: Cigarettes Age Started Using Tobacco: 19; packs per day: 2; Cigarettes Per Day: 20; Second Hand Exposure: Yes; Do You Dip or Chew Tobacco: No; Tobacco Cessation Education Requested by Patient: No Hx Alcohol Use: Yes Alcohol type: beer Hx Substance Use: No Preferred Language: Indonesian Communication Ability: Effective Hearing Ability: Hard of Hearing Bag Cutter Required: No Beliefs That Will Affect Care: None marital status: Current Living Situation: Spouse current occupational status: retired current occupation: [employer] in [place] Other Information That Helps Us Care for You: No Feels Safe at Home: Yes Safety Concerns: Feels Safe At This Time Childhood Exposure to Second-Hand Smoke: Yes Diet: regular caffeine: Yes Dental Care, Regularly: Yes Physical Activity Frequency: Does not Exercise Seatbelt Use: always Sunscreen Use: No Assistive Devices: CPAP and Glasses Physical Exam Physical Exam: Alert coherent sitting up the side of bed without any issues significant other in the room On examination the patient has significant tenderness starting at the front of both ears and extending to both temporal areas Cannot feel any discrete cord along the distribution of the temporal artery there is no edema or redness in that distribution Results & Data Vital Signs (Past 12 Hours) Vital Signs Temp Pulse Resp BP Pulse Ox O2 Del Method 12/03/22 20:40 Room Air 12/03/22 20:15 36.6 C 64 18 122/73 95 Room Air 12/03/22 15:41 36.4 C L 60 18 123/77 98 Room Air Laboratory Results Sed rate slightly elevated at 25 PG Care Time/CCT Total # of Minutes Spent Total Time Spent with Patient: Total time spent is greater than 50% in coordination of care (as documented) at patient's floor/unit and/or counseling patient: Coding Level of Care Code 06413 INT INP/OBS CARE 2/55MIN Diagnoses Headache R51.9 Headache chronicity pattern: acute headache Headache type: unspecified Intractability: not intractable (1) Headache Headache chronicity pattern: acute headache Headache type: unspecified Intractability: not intractable Qualified Code(s): R51.9 - Headache, unspecified
[2022-12-04] MEDS: ACETAMINOPHEN 325 MG TAB PO PRN ×2 (01:51→10:39)
[2022-12-04] MEDS ORDERED: fentaNYL citrate PF 100 MCG/2 ML VIAL ONE (07:54)
[2022-12-04] MEDS ORDERED: BACITRACIN OINT 15 GM TUBE ONE (08:03)
[2022-12-04] MEDS ORDERED: LIDOCAINE 1%/EPINEPHRINE 1:100,000 20 ML VIAL ONE ×2 (08:03→09:39)
--- NOTE | 2022-12-04 08:29 | History & Physical Bridge Note ---
Date of Service December 04, 2022 History & Physical Bridge Note permit signed all question answered
--- NOTE | 2022-12-04 08:48 | Anesthesiology Consultation ---
Date of Service December 04, 2022 Assessment & Plan Chart Review Chart Review: Acceptable Risk for Surgery Consults Requested none History Surgery Operation Date: 12/04/22 07:00 Proposed Procedures p Bilateral Temporal Artery Biopsy - Nestor Arboleda MD, FACS Height/Weight Height: 5 ft 10 in Weight: 82.1 kg Allergies Allergy/AdvReac Type Severity Reaction Status Date / Time No Known Allergies Allergy Unknown Verified 12/04/22 07:47 Medications Home Medications Medication Instructions Recorded Confirmed Last Taken aspirin 81 mg tablet,delayed 81 mg PO DAILY #30 tabs 11/14/21 12/01/22 Unknown release albuterol sulfate 90 mcg/actuation 2 puff inhalation Q6H PRN 03/01/22 12/01/22 Unknown aerosol inhaler (Ventolin HFA) shortness of breath or wheezing #8.5 grams memantine 5 mg tablet (Namenda) 5 mg PO BID #180 tabs 06/26/22 12/01/22 Unknown donepezil 10 mg tablet (Aricept) 10 mg PO DAILY #90 tabs 07/05/22 12/01/22 Unknown lisinopril 20 1 tab PO DAILY #90 tabs 07/05/22 12/01/22 Unknown mg-hydrochlorothiazide 25 mg tablet rosuvastatin 40 mg tablet 40 mg PO DAILY #90 tabs 07/13/22 12/01/22 Unknown fluticasone fur. 100 mcg-umeclid 1 inh inhalation DAILY #60 ea 09/07/22 12/01/22 Unknown 62.5 mcg-vilant 25 mcg inhalat.powder (Trelegy Ellipta) omeprazole 40 mg capsule,delayed 40 mg PO DAILY #30 caps 11/28/22 12/01/22 Unknown release venlafaxine 225 mg tablet,extended 225 mg PO DAILY #30 tabs 11/28/22 12/01/22 Unknown release 24 hr acetaminophen 325 mg tablet 650 mg PO QID PRN Pain 12/01/22 12/01/22 Unknown (Tylenol) Active Medications Generic Name Dose Route Start Last Admin Trade Name Freq PRN Reason Stop Dose Admin Acetaminophen 650 mg 12/01/22 18:24 12/04/22 01:51 Acetaminophen 325 Mg Tab PO 12/31/22 18:23 650 mg Q4H PRN Administration pain/fever Al Hydrox/Mg Hydrox/Simethicone 30 ml 12/01/22 18:24 12/01/22 20:54 Aluminum/Magnesium Susp 30 Ml Udc PO 12/31/22 18:23 30 ml Q6H PRN Administration Dyspepsia Aspirin 81 mg 12/02/22 09:00 12/03/22 07:38 Aspirin 81 Mg Ectab PO 01/01/23 08:59 81 mg DAILY EVELIA Administration Donepezil HCl 10 mg 12/02/22 09:00 12/03/22 07:40 Donepezil Hcl 10 Mg Tab PO 01/01/23 08:59 10 mg DAILY EVELIA Administration Fluticasone/Vilanterol 1 puffs 12/02/22 09:00 12/03/22 07:40 Fluticasone/Vilanterol 100/25mcg 14 Puffs/Inhaler INH 01/01/23 08:59 1 puffs DAILY EVELIA Administration Guaifenesin 600 mg 12/01/22 21:00 12/03/22 20:41 Guaifenesin 600 Mg Tabcr PO 12/31/22 20:59 600 mg Q12 EVELIA Administration Memantine 5 mg 12/01/22 21:00 12/03/22 20:42 Memantine Hcl 5 Mg Tab PO 12/31/22 20:59 5 mg BID EVELIA Administration Pantoprazole Sodium 40 mg 12/02/22 09:00 12/03/22 07:38 Pantoprazole 40 Mg Tab PO 01/01/23 08:59 40 mg DAILY EVELIA Administration Prednisone 60 mg 12/03/22 10:45 12/03/22 12:15 Prednisone 20 Mg Tab PO 01/02/23 10:44 60 mg DAILY EVELIA Administration Roflumilast 250 mcg 12/02/22 09:00 12/03/22 07:39 Roflumilast 500 Mcg Tab PO 01/01/23 08:59 250 mcg DAILY EVELIA Administration Rosuvastatin Calcium 40 mg 12/02/22 09:00 12/03/22 07:39 Rosuvastatin Calcium 20 Mg Tab PO 01/01/23 08:59 40 mg DAILY EVELIA Administration Sucralfate 1 gm 12/02/22 18:00 12/03/22 20:41 Sucralfate 1 Gm/10 Ml Udc PO 01/01/23 17:59 1 gm QID EVELIA Administration Umeclidinium/Vilanterol 1 puffs 12/02/22 09:00 12/03/22 07:42 Umeclidinium/Vilanterol 62.5/25mcg 7 Puffs/Inhaler INH 01/01/23 08:59 1 puf fs DAILY EVELIA Administration Venlafaxine HCl 225 mg 12/02/22 09:00 12/03/22 07:41 Venlafaxine Hcl Xr 75 Mg Capxr PO 01/01/23 08:59 225 mg DAILY EVELIA Administration NPO Date Last Intake of Fluids: 12/03/22 Time Last Intake of Fluids: 21:00 Date Last Intake of Solids: 12/03/22 Time Last Intake of Solids: 19:00 Past Medical History Medical History (Updated 12/03/22 @ 21:50 by Nestor Arboleda MD, FACS) Anxiety Aortic root dilatation Bulging disc Cancer PROSTATE CANCER, 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) Chronic back pain Depression Fusion of spine L3-L4 GERD (gastroesophageal reflux disease) Headache History of vitamin D deficiency Hyperlipidemia Hypertension Lumbago Lumbar radiculopathy Lumbar spinal stenosis Lumbosacral facet joint syndrome Mild dementia Osteoarthritis Sacroiliitis Sleep apnea CPAP Urinary urgency Past Family History Family History Father Cancer, Onset Age: 80 Hypertension Cardiac disorder Prostate cancer Mother age 97-unknown med problems Brother Cancer -unknown type of CA Brother Back pain Sister Dementia Denies family history of Ovarian cancer Coronary heart disease Breast cancer Colorectal cancer Past Surgical History Surgical History H/O shoulder surgery RIGHT SHOULDER TENDON REPAIR History of adenoidectomy History of arthroscopy RIGHT KNEE History of bowel resection LAPRASCOPIC R/T VILLOUS ADENOMA History of cataract surgery BILATERAL History of colonoscopy History of discectomy LUMBAR AREA X2 History of lumbar fusion L4-5, non-instrumented History of repair of rotator cuff RIGHT SHOULDER History of tonsillectomy Social History Smoking Status: Former smoker tobacco type: cigarettes Smoking cigarettes per day: 20 Do You Dip or Chew Tobacco: No Hx Alcohol Use: Yes Alcohol type: beer alcohol intake frequency: holidays/special occasions only Hx Substance Use: No substance use type: does not use Physical Exam Vital Signs Last Vital Signs Temp 36.5 C 06/26/23 07:52 Pulse 78 12/04/22 07:52 Resp 20 12/04/22 07:52 BP 146/83 H 12/04/22 07:52 Pulse Ox 98 12/04/22 07:52 O2 Del Method Room Air 12/04/22 07:52 FiO2 21 12/04/22 02:35 Testing Laboratory Results 12/02/22 06:01 12/03/22 06:47 PT 10.6 Seconds (9.0-12.0) 12/01/22 12:10 INR 1.0 (0.9-1.1) 12/01/22 12:10 Urine Color Yellow 12/01/22 19:45 Urine Appearance Clear (Clear) 12/01/22 19:45 Urine pH 5.0 (4.5-7.5) 12/01/22 19:45 Ur Specific [place] 1.044 (1.000-1.030) H 12/01/22 19:45 Urine Protein Negative (Negative) 12/01/22 19:45 Urine Glucose (UA) Negative (Negative) 12/01/22 19:45 Urine Ketones Negative (Negative) 12/01/22 19:45 Urine Nitrite Negative (Negative) 12/01/22 19:45 Ur Leukocyte Esterase Negative (Negative) 12/01/22 19:45 12/02/22 06:10 Gram Stain - Final Sputum, Expectorated Sputum Culture - Preliminary Moderate normal parvez present, final report to follow.
[2022-12-04] MEDS ORDERED: ONDANSETRON INJ 2 MG/ML 2 ML VIAL ONE (08:49)
[2022-12-04] MEDS ORDERED: PROPOFOL IV EMULSION 10 MG/ML 20 ML VIAL IV ONE (08:49)
[2022-12-04] MEDS ORDERED: LIDOCAINE 2% 2 ML VIAL/AMP(20MG/ML) INFIL ONE (08:49)
[2022-12-04] MEDS ORDERED: fentaNYL citrate PF 100 MCG/2 ML VIAL IV PRN (08:51)
[2022-12-04] MEDS ORDERED: ePHEDrine sulfate 50 MG/ML AMP IV PRN (08:51)
[2022-12-04] MEDS ORDERED: ATROPINE SULFATE 0.1 MG/ML 10ML SYR IV PRN (08:51)
--- NOTE | 2022-12-04 09:32 | Post Operative Brief Note ---
Immediate Post Op Note v1 Date of Surgery December 04, 2022 Pre & Post Diagnosis Operation Date: 12/04/22 07:00 Pre-Op Diagnosis: Daily Temporal Headaches Post-Op Diagnosis: Daily Temporal Headaches I identified the patient and participated in the time-out.: Yes Procedure Operation Date: 12/04/22 07:00 Actual Procedures p Bilateral Temporal Artery Biopsy(Bilateral) - Nestor Arboleda MD, FACS Surgeon Nestor Arboleda MD, FACS [employer] Wallace Estimated Blood Loss 2 Findings Consistent with Post-Op Diagnosis
--- NOTE | 2022-12-04 09:49 | Operative Report ---
PG Post Operative Report Pre & Post Diagnosis Operation Date: 12/04/22 07:00 Pre-Op Diagnosis: Daily Temporal Headaches Post-Op Diagnosis: Daily Temporal Headaches I identified the patient and participated in the time-out.: Yes Procedure Operation Date: 12/04/22 07:00 Actual Procedures p Bilateral Temporal Artery Biopsy(Bilateral) - Nestor Arboleda MD, FACS The patient was brought into the operating theater supine position the head turned to the left IV sedation given cotton swab was placed inside the ear canal and the area anterior and around the ear was prepped byline solution properly draped a timeout was had the patient identified and use 1% plain was used to infiltrate an area approximately 2 cm anterior to the ear in the midportion incision was made deep to the subcutaneous tissue the patient had moderate amount of subcuticular fatty tissue there but we are able to dissect down after we are able to get into the identify the artery that appeared thickened in certain areas this was done by placing a self retainer and we dissected approximately a centimeter and a half of the artery and we clamped approximately and distally and divided and sent for specimen for permanent the 2 ends were then oversewn with 4-0 Vicryl suture and 3-0 subcutaneous Vicryl suture interrupted and 4-0 Vicryl subcuticularly and Steri-Strips applied procedure was tolerated well by the patient minimal blood loss At this point we prepped and redraped by first turning the head to the patient's of the right in a similar fashion using cotton swab inside the canal and Betadine surrounding area the area properly draped a timeout was had the patient identified again this point more local was used similarly about 2 cm anterior to the ear incision was made deep this and subcutaneous tissue small self retainer was positioned we dissected down I was able to identify the artery was similar to the right there was prominent a centimeter and a half or 2 was taken clamped in approximately and distally with hemostats and dividing it and sent for specimen the 2 ends were then oversewn with 4-0 Vicryl suture 3-0 Vicryl subcutaneous 4-0 Vicryl subcuticular and Steri-Strips applied the procedure was tolerated well by the patient Estimated blood loss for both procedure about 4 cc CIsiah Carrington was present procedure and helped the retraction exposure and wound closure Spoke with Ana M his at [phone] Surgeon Nestor Arboleda MD, FACS [employer] Technician [employer] Wallace Estimated Blood Loss 5 Findings Consistent with Post-Op Diagnosis Grossly indurated temporal artery Specimens Right and left temporal artery biopsies each 1 marked separately Complications None Indications Rule out temporal arteritis as a cause of the headaches Description of Procedure merda I attest to the content of the Intraoperative Record and any orders documented therein. Any exceptions are noted below.
--- NOTE | 2022-12-04 10:04 | Anesthesiology Progress Note ---
Date of Service December 04, 2022 Anesthesia Post Procedure Vital Signs Vital Signs: Temp Pulse Pulse Pulse Resp BP Pulse Ox 12/04/22 09:45 58 L 21 119/70 93 12/04/22 09:37 36.1 C L 62 23 121/64 94 12/04/22 07:52 36.5 C 78 20 146/83 H 98 12/04/22 07:33 36.4 C L 64 18 166/84 H 94 12/04/22 02:35 64 20 94 12/03/22 22:15 65 22 96 12/03/22 20:40 12/03/22 20:15 36.6 C 64 18 122/73 95 12/03/22 15:41 36.4 C L 60 18 123/77 98 O2 Del Method FiO2 12/04/22 09:45 Room Air 12/04/22 09:37 Room Air 12/04/22 07:52 Room Air 12/04/22 07:33 Room Air 12/04/22 02:35 21 12/03/22 22:15 21 12/03/22 20:40 Room Air 12/03/22 20:15 Room Air 12/03/22 15:41 Room Air Pain Intensity Head: Pain Intensity: 3 Transfer of Care Handoff Completed per policy Notes Mental Status: alert / awake / arousable and participated in evaluation Patient Amnestic to Procedure: Yes Nausea / Vomiting: adequately controlled Pain: adequately controlled Airway Patency, RR, SpO2: stable & adequate BP & HR: stable & adequate Hydration State: stable & adequate Anesthetic Complications: no major complications apparent
[2022-12-04] MEDS: PANTOprazole 40 MG TAB PO SCH (10:40)
[2022-12-04] MEDS: DONEPEZIL HCL 10 MG TAB PO SCH (10:40)
[2022-12-04] MEDS: ASPIRIN 81 MG ECTAB PO SCH (10:40)
[2022-12-04] MEDS: guaiFENesin 600 MG TABCR PO SCH (10:40)
[2022-12-04] MEDS: ROFLUMILAST 500 MCG TAB PO SCH (10:40)
[2022-12-04] MEDS: VENLAFAXINE HCL XR 75 MG CAPXR PO SCH (10:41)
[2022-12-04] MEDS: ROSUVASTATIN CALCIUM 20 MG TAB PO SCH (10:41)
[2022-12-04] MEDS: MEMANTINE HCL 5 MG TAB PO SCH (10:41)
[2022-12-04] MEDS: predniSONE 20 MG TAB PO SCH (10:41)
[2022-12-04] MEDS: UMECLIDINIUM/VILANTEROL 62.5/25MCG 7 PUFFS/INHALER INH SCH (10:42)
[2022-12-04] MEDS: SUCRALFATE 1 GM/10 ML UDC PO SCH ×2 (10:42→13:55)
[2022-12-04] MEDS: FLUTICASONE/VILANTEROL 100/25MCG 14 PUFFS/INHALER INH SCH (10:42)
--- NOTE | 2022-12-04 14:19 | Discharge Summary ---
Date of Service date of admission - December 01, 2022 date of discharge - December 04, 2022 Admission HPI Per Admitting Provider Efrain Rubio is an 81 yo M with a pmhx of COPD, HTN, hyperlipidemia, GERD, and mild dementia who presents to the ER today c/o progressive weakness over the past month. He reports symptoms seemed to start about a month ago with increased shortness of breath exacerbated by exertion, fatigue, weakness, decreased appetite, headache, and persistent productive cough. He denies fever, chills, chest pain, PND, LE edema, palpitations, or recent long trips. No prior h/o DVT/PE. He was seen in the ER on 11/07, diagnosed with exacerbation of COPD and sent out on a Prednisone burst and course of antibiotics. Despite that, he felt no improvement. His notes that he is to the point where he is no longer able to do activities and spends most of his day laying in bed. He stopped smoking in May 2022 (prior 60-pack year h/o smoking). He has intermittent epigastric pain but denies n/v, hematochezia, melena, or hematemesis. He was recently seen by pulmonology for the first time at the beginning of the month and started on Daliresp with plans for referral to pulmonary rehab but has not yet started that. He was also just seen by cardiology d/t his persistent SIMMONS of which they did not feel was related to cardiac disease. His work up in the ER today was notable for soft BP in the 80-90s systolic which is not usual for him. He admits he has not been eating/drinking much and continues to take Lisinopril- HCTZ for HTN. His wbc count was normal but did have a minimal left shift, some elevation in his inflammatory markers were noted, and he had a slight bump in his creatinine. He also was found to have multiple lesions on his abd CT in his distal stomach, duodenum, and proximal jejunum that have been there since 2017 but are more pronounced and have not been evaluated to date. He has been hydrated with NSS in the ER and given a dose of Mag Sulfate for his mag level of 1.6 and has been referred to the hospital medicine team for further eval. Principal Diagnosis 1. shortness of breath - likely due to resolving COPD exacerbation from rhinovirus infection in late October 2022 2. weakness, myalgias, daily bitemporal headaches - concern for temporal arteritis; s/p b/l temporal artery biopsy - Dr Declan Arboleda 3. history of iron deficiency and B12 deficiency - improved 4. abdominal pain - improved; outpatient EGD needed by [facility] 5. COPD 6. small intra-abdominal nodules - chronic; follow-up with [facility] 7. 4mm left lung nodule - follow-up CT scan needed in future Discharge Exam gen - NAD, just returned from operating room from temporal artery biopsy, awake, alert head - no pain to palpation of any sinus; bitemporal tenderness to palpation; no bruit over either temporal artery; steri strips in place anterior to both ears from recent biopsy neck - no JVD mouth - MMM, no thrush heart - 2/6 systolic murmur LSB, RRR, s1 s2 lungs - CTA b/l, no rales, no wheeze, airation fair-good abd - soft; NT; BS+; no distension; small lipoma(?) upper abdomen just to right of midline, freely movable ext - no edema, pulses 2+ b/l psych - awake, alert, oriented x 3 Discharge Data Allergies Allergy/AdvReac Type Severity Reaction Status Date / Time No Known Allergies Allergy Unknown Verified 12/06/22 09:15 Consultations [facility] [place] - Declan Arboleda MD Procedures Performed Operation Date: 12/04/22 07:00 Actual Procedures Bilateral Temporal Artery Biopsy - Nestor Arboleda MD, FACS Ordered Studies Abdomen/Pelvis CT 12/01/22 12:35 CT SCAN OF THE ABDOMEN AND PELVIS WITH IV CONTRAST CLINICAL HISTORY: Mid abdominal pain. COMPARISON STUDY: Abdominal CT dated 01/05/2017 TECHNIQUE: Following the IV administration of 90 cc of Optiray 320, CT scan of the abdomen and pelvis is performed from the lung bases to the proximal femora. Images are reviewed in the axial, sagittal, and coronal planes. IV contrast was administered without complication. A dose lowering technique was utilized adhering to the principles of ALARA. CT DOSE: 1907.15 mGy.cm FINDINGS: Lung bases: The heart is mildly enlarged and without pericardial effusion. The coronary arteries are densely calcified. Emphysematous change is suspected. There is bibasilar scarring/atelectasis. No airspace consolidation or pleural effusion is identified. There is a small hiatal hernia. Liver: The contrast-enhanced liver is normal in size, contour, and attenuation. There is no intrahepatic biliary ductal dilatation. The hepatic veins and portal veins are patent. Scattered hepatic cysts measure up to 3.1 cm. Gallbladder: Unremarkable. Spleen: Normal in size and attenuation. Pancreas: Unremarkable. Adrenal glands: Unremarkable. Kidneys: The contrast enhanced kidneys are normal in size and without hydronephrosis. The kidneys enhance symmetrically. Numerous bilateral renal cysts measure up to 5.7 cm. No enhancing cortical mass lesion is identified. Abdominal vasculature: The abdominal aorta is normal in course and caliber noting advanced atherosclerotic calcification. Bowel: There are numerous small round hypervascular lesions seen involving the distal stomach, duodenum, and proximal small bowel. Be[employer] Supervisor lesions are seen in the distal stomach on image #97 measuring 10 mm, the distal duodenum on image #171 measuring 12 mm, and involving the left jejunum on image #200 measuring 6 mm. There is moderate colonic diverticulosis without CT evidence of acute diverticulitis. No bowel obstruction is seen. Postsurgical change is noted in the right colon. The appendix is not identified and presumed surgically absent. Peritoneum: There is no intraperitoneal free air or abdominal ascites. There is a fat-containing umbilical hernia. Lymphadenopathy: None. Pelvic viscera: The prostate gland is diminutive and heterogeneous noting brachytherapy implants in place. The bladder is largely decompressed. The wall appears thickened/trabeculated indicating chronic outlet obstruction. The Skeletal structures: The skeletal structures are osteopenic. There is moderate to advanced lumbosacral spondylosis. Postlaminectomy changes seen in the lumbar spine. A bone graft donor site is seen in the medial right ilium. No lytic or blastic lesions are seen. IMPRESSION: 1. No acute infectious or inflammatory findings are identified in the abdomen or pelvis. 2. There are numerous small ovoid hypervascular lesions involving the distal stomach, duodenum, and proximal jejunum. Several of these were present in 2017; however, these are much better assessed on today's examination due to technique. These are pathologically indeterminant, potentially representing numerous small polyps. These are unlikely to be of acute clinical significance. 3. Cardiomegaly. 4. Colonic diverticulosis without CT evidence of acute diverticulitis. 5. Additional findings as above. ACT 112: Negative or not required by law. Electronically signed by: Grover Trejo M.D. 12/01/2022 2:03 PM Chest X-Ray 12/01/22 12:35 XR chest 1V portable CLINICAL HISTORY: weakness COMPARISON STUDY: Chest CT November 18, 2020. Chest radiograph November 07, 2022. FINDINGS: Lung volumes are normal. Lungs are clear. There is no pneumothorax or pleural effusion. Cardiac size is stable. Mediastinal contours are normal. There is no evidence for pulmonary edema. IMPRESSION: No acute cardiopulmonary findings. ACT 112: Negative or not required by law. Electronically signed by: Gerald Meza M.D. 12/01/2022 1:[address] 12/01/22 12:35 CT head/brain wo con CLINICAL HISTORY: 81 years-old Male with temporal STEWART. Acute headache TECHNIQUE: Multiple axial CT images of the head were obtained without contrast. A dose lowering technique was utilized adhering to the principles of ALARA. With COMPARISON: None. FINDINGS: No acute intracranial hemorrhage, midline shift, intracranial mass, hydrocephalus, territorial ischemia or abnormal extra-axial collection. Involutional changes with mild chronic microvascular ischemic disease. Cerebrovascular calcifications. The calvarium is intact. Mastoid air cells are clear. Mild mucosal thickening of the ethmoid air cells. Prior bilateral lens repair. IMPRESSION: No acute intracranial abnormality. ACT 112: Negative or not required by law. The above report was generated using voice recognition software. It may contain grammatical, syntax or spelling errors. Electronically signed by: Sanjiv Ro M.D. 12/01/2022 1:[address] 12/01/22 16:31 CT SCAN OF THE CHEST WITHOUT IV CONTRAST CLINICAL HISTORY: Dyspnea. Productive cough. Weakness. COMPARISON STUDY: Chest CT scans dated 11/18/2020 and 12/04/2018. Chest x-ray dated 12/01/2022. TECHNIQUE: CT scan of the thorax was performed from the thoracic inlet to the upper abdomen. Images are reviewed in the axial, sagittal, and coronal planes. IV contrast was not administered for this examination as per the referring clinician. A dose lowering technique was utilized adhering to the principles of ALARA. CT DOSE: 608.51 mGy.cm FINDINGS: Thyroid: Imaged portions of the thyroid gland are normal in size and attenuation. Thoracic aorta: There is atherosclerotic calcification of the thoracic aorta, which is normal in caliber and demonstrates standard 3-vessel arch anatomy. Heart: The heart is enlarged and without pericardial effusion. The coronary arteries are densely calcified. Lungs and pleural spaces: There is moderate emphysematous change. No airspace consolidation or pleural effusion is identified. Scarring/atelectasis is noted at both lung bases. A 4 mm left lower lobe pulmonary nodule image #59 is new from previous. A 2 mm pleural-based nodule at the right apex seen on image #60 and a 4 mm focus of pleural-based nodularity in the left lower lobe along the major fissure on image 127 are unchanged from prior studies and of doubtful significance. Mediastinum: There is no mediastinal lymphadenopathy. Beena: Not well assessed without IV contrast. Axillae: There is no axillary lymphadenopathy. Upper abdomen: There is a small hiatal hernia. Right lobe hepatic cysts measure up to 3 cm. Bilateral renal cysts are partially visualized and measure up to 5.6 cm. Skeletal structures: The skeletal structures are osteopenic. No lytic or blastic bony lesions are seen. Arthritic change is seen in the shoulders. 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 There are chronic/healed bilateral rib fractures. IMPRESSION: 1. Cardiomegaly and emphysema. 2. There is no airspace consolidation or pleural effusion. 3. A 4 mm left lower lobe pulmonary nodule is pathologically indeterminate but new from the prior examinations. Follow-up is recommended as per the Fleischner criteria. See below. 4. Additional findings as above. Please refer to below summary of Fleischner criteria recommendations for follow- up of incidental CT nodules (Ana Paula Peterson, Guidelines for management of small pulmonary nodules detected on CT scans: A statement from the Fleischner Society, Radiology 237: [phone].) SOLID NODULES Solitary nodule size: <6 mm * low risk patients: no follow-up needed * high risk patients: optional CT at 12 months Solitary nodule size: 6-8 mm * low risk patients: follow-up at 6-12 months, then consider further follow-up at 18-24 months * high risk patients: initial follow-up CT at 6-12 months and then at 18-24 months if no change Solitary nodule size: >8 mm * either low or high risk patients - consider follow-up CT at 3 months, and/or CT-PET, and/or biopsy Multiple nodules size: <6 mm * low risk patients: no routine follow-up * high risk patients: optional CT at 12 months Multiple nodules size: 6-8 mm * low risk patients: follow-up at 3-6 months, then consider further follow-up at 18-24 months * high risk patients: follow-up at 3-6 months, then at 18-24 months if no change Multiple nodules size: >8 mm * low risk patients: follow-up at 3-6 months, then consider further follow-up at 18-24 months * high risk patients: follow-up at 3-6 months, then at 18-24 months if no change Note: newly detected indeterminate nodule in persons 35 years of age or older. * low risk patients: minimal or absent history of smoking and/or other known risk factors * high risk patients: history of smoking or of other known risk factors (e.g. first degree relative with lung cancer, or exposure to asbestos, radon, uranium) * if a nodule up to 8 mm is partly solid or is ground glass further follow-up is required after 24 months to exclude possible slow growing adenocarcinoma (JOSE ANTONIO) SUBSOLID NODULES Solitary pure ground-glass nodule * nodule size <6 mm - no CT follow-up required * nodule size >=6 mm - follow-up CT at 6-12 months, then every 2 years until 5 years Solitary part-solid nodule * nodule size <6 mm - no CT follow-up required * nodule size >=6 mm - follow-up CT at 3-6 months. If unchanged, and solid component remains <6 mm, then annual follow-up for 5 years Multiple subsolid nodules * nodule size <6 mm - follow-up CT at 3-6 months, consider further follow-up at 2 and 4 years if stable * nodule size >=6 mm - follow-up CT at 3-6 months, subsequent management based on the most suspicious nodule(s) ACT 112: Positive. There are findings on this exam that require communication between the performing entity and the patient following Patient Test Result Information Act ([place] Act 112) guidelines. Electronically signed by: Grover Trejo M.D. 12/01/2022 6:26 PM Brain MRI 12/03/22 00:00 MRI OF THE BRAIN WITHOUT AND WITH IV CONTRAST CLINICAL HISTORY: Bitemporal headaches. COMPARISON STUDY: MRI of the brain November 18, [address] December 01, 2022. TECHNIQUE: Utilizing a 1.5 Barbra magnet and dedicated coil, multiplanar, multiecho imaging of the brain was performed pre and postcontrast administration. IV administration of 8 mL of Gadavist contrast was uneventful. FINDINGS: There are no foci of restricted diffusion to suggest acute infarct. No acute intracranial hemorrhage, midline shift or mass effect is present. Ventricular system is unremarkable. Basal cisterns are patent. There are no extra-axial collections. No intracranial mass or pathologic enhancement is present. Flow-voids for the major intracranial vessels are present. Punctate white matter T2 hyperintense focus within the right frontal lobe on coronal FLAIR image of is unchanged since previous MRI. This is of no significance. There is no significant parenchymal signal abnormality. The appearance of the brain is unchanged. Orbits are unremarkable. There is no mastoid fluid. There is moderate mucosal thickening of the left frontal and anterior left ethmoid air cells. IMPRESSION: 1. No acute intracranial findings. No change in appearance of the brain since MRI of November 18, 2020. 2. Moderate left frontal and anterior left ethmoid sinus mucosal thickening. ACT 112: Negative or not required by law. Electronically signed by: Gerald Meza M.D. 12/03/2022 10:14 AM Hospital Course (1) Bilateral headaches: The patient has had bitemporal headaches on a daily basis for well over a month. On exam he has tenderness to palpation over both temporal arteries. He had had associated fatigue, weakness, poor appetite, shortness of breath, myalgias of his proximal legs and arms, etc. MRI brain negative - no acute or chronic CVA, minimal mucosal thickening of some sinuses but no sinusitis. Sed rate - 25 CRP - 1.5 Dr Declan Arboleda was consulted from general surgery for consideration of temporal artery biopsy. While awaiting biopsy results he was placed on empiric prednisone 60mg/day. First dose was 12/03/22. During the biopsy Dr Arboleda commented that the temporal arteries appeared grossly indurated/thickened in certain areas. The patient will d/c home on prednisone 60mg daily while awaiting biopsy results and will need close f/u with his PCP. If biopsies are positive he will need referral to rheumatology for ongoing management, eye exam by ophthalmology, etc. (2) Elevated erythrocyte sedimentation rate: see above #1 (3) Weakness: could be any number of factors - recent rhinovirus infection (late October to early November he came down with illness), nutritional deficiencies, anemia, systemic autoimmune or vasculitic disorders, electrolyte disturbances, etc he had iron deficiency and B12 deficiency in 05/2022 - rechecked FE studies, B12 level - both wnl at this time see #1 above re: concern for temporal arteritis CPK wnl anaplasmosis smear negative s/p temporal artery biopsies by Dr Ibanez on day of discharge (4) Abdominal pain: high epigastric region in location improved s/p adding carafate to his PPI making an esophageal or gastric cause likely for his pain at discharge I increased his PPI to twice daily dosing seen by [facility] while here - he will have an EGD added to his colonoscopy in the near-future - both to be done as outpatient of note - lipase, LFTs were wnl pancreas, liver, and gall bladder all appeared wnl on CT (5) Abnormal CT of the abdomen: 12/01 CT abd/pelvis with - "numerous small ovoid hypervascular lesions involving the distal stomach, duodenum, and proximal jejunum. 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 rechecked B12 level - wnl cont aricept cont namenda (9) Hypertension: majority of BPs were wnl while here OFF off his usual lisinopril-HCTZ he was advised to hold his BP meds and check his BPs at home he will have f/u with his PCP within a few days of discharge and his meds can be reinstituted as needed (10) Gastroesophageal reflux disease: cont PPI see discussion above re: future EGD (11) Chronic obstructive pulmonary disease: with recent exacerbation due to rhinovirus infection late October 2022 suspect that at least some of his lingering pulmonary symptoms were due in part to his rhinovirus infection with resulting COPD flare some COPD flares following viral processes can last 3-4 weeks in duration cont inhalers, etc CT chest w/o pneumonia (12) Benign prostate hyperplasia: no LUTS while here (13) Rhinovirus infection: 10/2022 sputum cx sent to check for any bacterial process - thus far negative (14) Anemia: B12, iron studies c/w deficiency of each -- 05/2022 rechecked both this admission - indices acceptable ([id number]; ferritin=55, had been 16) (15) Pulmonary nodule: 4 mm left lower lobe follow-up CT scan will be needed in 6-12 months Total Time Total Time Spent Total Time Spent (In Minutes): 45 Discharge Plan Discharge Items Patient Disposition: Home - Self-Care Reason For Visit: SHORTNESS OF BREATH, WEAKNESS, DAILY HEADACHES Discharge Diagnosis: 1. shortness of breath - likely due to resolving COPD exacerbation stemming from your late October rhinovirus infection 2. weakness, daily headaches - concern for "temporal arteritis"; biopsy of both temporal arteries by Dr Declan Arboleda 3. history of iron deficiency and B12 deficiency - both improved 4. abdominal pain - due to gastritis? (stomach irritation); outpatient EGD needed by [facility] 5. COPD 6. small intra-abdominal nodules - chronic; follow-up with [facility] 7. 4mm left lung nodule - follow-up scan needed in the future Activity: As commented below Activity Comment: light activities x at least 1 week Bathing Comment: May shower in 24 hours Exercise/Sports: Wait until after follow-up appointment Driving/Machine Use: Resume 3 days after discharge Non-emergency contact: Primary Care Provider, Surgeon and Chemical Engraver Call non-emergency contact if: you have any medication questions, your symptoms worsen, your pain is not controlled, your pain is unusual for you, your pain is concerning for you, you have a fever, your wound has increased redness, your wound has increased drainage and your wound pain has increased Follow-up/Referrals: Kip Bonilla MD [Primary Care Provider] - 12/08/22 1:00 pm (APPOINTMENT WITH DR SALES) Nestor Arboleda MD, FACS [Surgeon] - 12/19/22 1:45 pm Adela Rice CRNP [Nurse Practitioner] - 12/26/22 11:00 am (PATIENT WILL BE PUT ON A CANCELLATION LIST.) Diet: Heart Healthy Addtl Attending Provider Instructions: Mr Rubio, You were admitted to the hospital due to a host of symptoms including weakness, fatigue, shortness of breath, and daily headaches involving both of your temples. You had been diagnosed with rhinovirus infection in late October and at least some of your symptoms have likely been from that resolving infection (especially the shortness of breath). With respect to the headaches - an MRI brain was obtained and this did NOT show tumor, bleeding, old stroke, new stroke, sinus infection, etc. The location of the headaches along with muscle aches and weakness was concerning for possible "temporal arteritis." Therefore, on 12/04, you underwent bilateral temporal artery biopsy by Dr Arboleda. The biopsy results should be available by later this week. If they are positive you will need to be treated for temporal arteritis. This condition requires a long period of treatment, usually well over a year. Recommendations - 1. While awaiting your temporal artery biopsy you will need to continue on prednisone. This will help your headache pain and, if temporal arteritis is present, will start to treat that condition. Take 60mg of prednisone daily with food starting tomorrow AM, 12/05. If the biopsies are negative Dr Bonilla will likely instruct you to stop the prednisone. Stay on the prednisone however until Dr Bonilla discusses your biopsy results with you. For any additional headache relief you may take tylenol 500-1000mg every 6 hours as needed, maximum 3000mg in 24 hours. 2. To help protect your stomach from the effects of prednisone please - * STOP omeprazole * CHANGE TO pantoprazole 40mg twice daily, next dose TONIGHT 3. Post-biopsy instructions - * ok to shower in 24 hours * do not swim or take a tub bath * while showering simply do your best to keep the surgical sites clean and dry * if they get wet simply pat dry when you exit the shower * the steri strips will fall off in about 1-2 weeks * if you have any concerns about your biopsy sites/surgical sites you have a follow-up appointment in December with Dr Arboleda * if you are doing well in December and the surgical sites are healed you can cancel that appointment however * of note --> there are no sutures to be removed from your incisions 4. Take it easy over the next week as you recover from your surgery and your recent illness. Until we know the final biopsy results please defer on starting pulmonary rehab. 5. Please HOLD your blood pressure pill for now. Check your blood pressure at home once or twice a day until you see Dr Bonilla later this week. If your systolic pressure ("top number") is 140 or higher consistently please contact his office for instructions. 6. You have a small nodule in the bottom of your left lung - about 4mm. Please speak to Dr Bonilla about obtaining a follow-up CT scan later in the year to recheck this nodule. Of note - most nodules fortunately are benign/not harmful. But, again, this bears watching. Follow-up - see separate section Return to [facility] if - * you have fevers over 100 degrees * you have worsening shortness of breath * you have any concerns about your temporal artery incisions * you have a severe headache that will not lo with tylenol and prednisone * any other concerns Please continue to feel better! -Dr Coppola Pending Studies at Discharge: Yes Studies:: Biopsy of both temporal arteries Stand-Alone Forms: My [facility], Smoking Cessation Medications and DC Order Prescriptions: New pantoprazole 40 mg Tablet,Delayed Release (Dr/Ec) 40 mg PO BID Qty: 60 1RF Continued memantine [Namenda] 5 mg tablet 5 mg PO BID Qty: 180 3RF albuterol sulfate [Ventolin HFA] 90 mcg/actuation HFA aerosol inhaler 2 puff inhalation Q6H PRN (Reason: shortness of breath or wheezing) Qty: 8.5 5RF Trelegy Ellipta 100-62.5-25 mcg blister with device 1 inh inhalation DAILY Qty: 60 5RF venlafaxine 225 mg tablet extended release 24hr 225 mg PO DAILY Qty: 30 11RF aspirin 81 mg tablet,delayed release (DR/EC) 81 mg PO DAILY Qty: 30 2RF donepezil [Aricept] 10 mg tablet 10 mg PO DAILY Qty: 90 3RF rosuvastatin 40 mg tablet 40 mg PO DAILY Qty: 90 3RF acetaminophen [Tylenol] 325 mg Tablet 650 mg PO QID PRN (Reason: Pain) Held lisinopril-hydrochlorothiazide 20-25 mg tablet 1 tab PO DAILY Qty: 90 3RF Hold Instructions: hold unless Dr Bonilla advises you to restart Discontinued omeprazole 40 mg capsule,delayed release(DR/EC) 40 mg PO DAILY Qty: 30 11RF No Action mecobalamin (vitamin B12) 1,000 mcg tablet,chewable 1,000 mcg PO DAILY Qty: 30 0RF prednisone 20 mg tablet 60 mg PO DAILY 10 Days Qty: 30 0RF Rx Instructions: Start to taper by taking 50 mg each day and decreasing by 10 mg every 2 days until off. Discharge Orders: Discharge Order (Routine); Ordered 12/04/22 Ordered By: Aron Yoo/Other Patient Handouts: Temporal Artery Biopsy Admission Data Admit Date/Time: 12/03/22 15:59 Attending Provider: Aron Coppola Admit Provider: Monica Banegas Primary Care Provider: Kip Bonilla Other Providers: Monica Banegas ; Arnol Bunch ; Nestor Arboleda Other Interventions: Discharge Summary Assessment (RN) Last Done: 12/04/22 14:20 Coding Level of Care Code 76019 INP/OBS DISCH >30 MIN Diagnoses Bilateral headaches R51.9 Elevated erythrocyte sedimentation rate R70.0 Weakness R53.1 Abdominal pain R10.33 Abdominal location: periumbilical Abnormal CT of the abdomen R93.5 Hypomagnesemia E83.42 Acute kidney injury superimposed on chronic kidney disease N17.9; N18.9 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
== END 2022-12-04 15:00 | disposition home or self-care (01) | DRG 41 ==
LOC: 3N 11:51 → ED 11:51 → SUATTDRO 16:48 → 3N 17:57
DX: M79.10 Myalgia, unspecified site; F41.8 Other specified anxiety disorders; E83.42 Hypomagnesemia; K21.9 Gastro-esophageal reflux disease without esophagitis; E53.8 Deficiency of other specified B group vitamins; J43.9 Emphysema, unspecified; E78.5 Hyperlipidemia, unspecified; R53.1 Weakness; R51.9 Headache, unspecified; Z98.1 Arthrodesis status; Z79.82 Long term (current) use of aspirin; Z79.51 Long term (current) use of inhaled steroids; N40.0 Benign prostatic hyperplasia without lower urinary tract symptoms; Z87.891 Personal history of nicotine dependence; R70.0 Elevated erythrocyte sedimentation rate; Z90.49 Acquired absence of other specified parts of digestive tract; Z79.899 Other long term (current) drug therapy; I12.9 Hypertensive chronic kidney disease with stage 1 through stage 4 chronic kidney disease, or unspecified chronic kidney disease; Z20.822 Contact with and (suspected) exposure to COVID-19; R91.1 Solitary pulmonary nodule; Z79.1 Long term (current) use of non-steroidal anti-inflammatories (NSAID); R10.13 Epigastric pain; D64.9 Anemia, unspecified; R93.5 Abnormal findings on diagnostic imaging of other abdominal regions, including retroperitoneum; N17.9 Acute kidney failure, unspecified; N18.9 Chronic kidney disease, unspecified; F03.90 Unspecified dementia, unspecified severity, without behavioral disturbance, psychotic disturbance, mood disturbance, and anxiety; E61.1 Iron deficiency

== ENCOUNTER 2023-11-04 12:48 | Observation (INO) ==
[2023-11-04] MEDS: LORazepam 1 MG TAB SL STA ×2 (13:18→18:16)
--- OUTSIDE RECORDS SUMMARY | 2023-11-04 13:19 | External Medical Summary | Summary of Care ---
Author Name Unknown Organization [facility] Address [address] [place] [address] Phone [phone] Care Team Providers Care Prison Guard Supervisor Name Role Phone MeghanJonathan greenwood Primary Care Provider [phone] Encounter Details Date Type Department Care Team (Late st Contact Info) Description 10/30/2023 Population Health External Data Unspecified Department Allergies No known active allergiesdocumented as of this encounter (statuses as of 10/31/2023) Medications Medication Sig Dispensed Refills Start Date End Date Status citalopram (CELEXA) 20 MG Tablet Take 1 Tablet by mouth in the morning. Active prednisolone acetate (PRED FORTE) 1 % ophthalmic suspension Instill 1 Drop into the left eye in the morning. Active Brimonidine Tartrate-Timolol 0.2-0.5 % Ophthalmic Solution Instill 1 Drop into eye 2 times a day. Active omeprazole (PRILOSEC) 20 MG CPDR Take 1 Capsule by mouth in the morning. Active simvastatin (ZOCOR) 40 MG Tablet Take 1 Tablet by mouth in the morning. Active atropine sulfate 1 % ophthalmic solution Instill 1 Drop into the left eye 2 times a day. 2 mL 12 04/17/2017 Active Additional Information Patient not taking.Reported on 07/25/2022 Venlafaxine HCl ER 150 MG Oral Capsule Extended Release 24 Hour (Effexor XR) 09/09/2021 Active Timolol Maleate 0.5 % Ophthalmic Solution (Timoptic) 09/09/2021 Active Lisinopril-hydroCH LOROthiazide 20-25 MG Oral Tablet 09/09/2021 Active Donepezil HCl 10 MG Oral Tablet (Aricept) 07/05/2022 Active Memantine HCl 5 MG Oral Tablet (Namenda) take one tablet by mouth twice daily 180 Tablet 3 03/27/2023 Active Venlafaxine HCl ER 225 MG Oral Tablet Extended Release 24 Hour take one tablet by mouth daily 90 Tablet 3 03/29/2023 Active busPIRone HCl 5 MG Oral Tablet (Buspar) Take 1 Tablet by mouth daily As Needed for anxiety 90 Tablet 3 05/07/2023 Active Clopidogrel Bisulfate 75 MG Oral Tablet (pLAVix) take 1 tablet by mouth daily 90 Tablet 3 05/08/2023 Active Esomeprazole Magnesium 40 MG Oral Capsule Delayed Release one capsule by mouth twice a day 180 Capsule 2 05/16/2023 Active Lisinopril 40 MG Oral Tablet Take one tablet by mouth daily 90 Tablet 3 06/06/2023 Active amLODIPine Besylate 5 MG Oral Tablet (Norvasc) Take one tablet by mouth daily 90 Tablet 3 06/27/2023 Active Dexlansoprazole 60 MG Oral Capsule Delayed Release (Dexilant) Take 1 Capsule by mouth daily. 90 Capsule 1 07/02/2023 Active Donepezil HCl 10 MG Oral Tablet (Aricept) take 1 tablet by mouth daily in the morning 90 Tablet 3 07/27/2023 Active Rosuvastatin Calcium 40 MG Oral Tablet (Crestor) Take 1 Tablet by mouth in the morning. 90 Tablet 3 07/27/2023 Active busPIRone HCl 10 MG Oral Tablet (Buspar) Take 1 Tablet by mouth daily as needed for anxiety 90 Tablet 3 09/26/2023 Active amLODIPine Besylate 10 MG Oral Tablet (Norvasc) Take 1 tablet by mouth daily 90 Tablet 3 10/02/2023 Active documented as of this encounter (statuses as of 10/31/2023) Active Problems No known active problems documented as of this encounter (statuses as of 10/31/2023) Immunizations No known immunizationsdocumented as of this encounter Social History Tobacco Use Types Packs/Day Years Used Date Smoking Tobacco: Former Cigarettes Smokeless Tobacco: Never Alcohol Use Standard Drinks/Week Comments Yes 0 (1 standard drink = 0.6 oz pur e alcohol) Sex and Gender Information Value Date Recorded Sex Assigned at Not on file Gender Identity Not on file Sexual Orientation Not on file Job Start Date Occupation Industry Not on file Not on file Not on file documented as of this encounter Plan of Treatment Upcoming Encounters Date Type Department Care Team (Latest Contact Info) Description 12/12/2023 11:15 AM EDT Hospital Encounter [facility] End[facility] [address] [place] [address] Slade Hunter MD [address] [place] [address] 12/12/2023 11:15 AM EDT - 12/12/2023 12:15 PM EDT Surgery END[facility], Endoscopy Room [facility] [address] [place] [phone] Slade Hunter MD [address] [place] [address] ESOPHAGOGASTRODUODENOSCOPY (EGD), FLEXIBLE, TRANSORAL: MUCOSAL RESECTION Scheduled Procedures Name Priority Associated Diagnoses Date/Ti me ESOPHAGOGASTRODUODENOSCOPY ( EGD), FLEXIBLE, TRANSORAL: MUCOSAL RESECTION Adenomatous duodenal polyp 12/12/2023 11:15 AM EDT Health Maintenance Due Date Last Done Comments Depression Screening 1952 DTaP,Tdap,and Td Vaccines (1 - Tdap) 12/10/1959 Zoster Vaccines (2 of 2) 10/11/2019 08/16/2019 Pneumococcal Vaccine: 65+ Years (3 of 3 - PPSV23 or PCV20) 09/28/2020 09/29/2015, 10/01/2014, 11/21/2005 COVID-19 Vaccine (2 - 2022-2 4 season) 2023 03/09/2022 Influenza Vaccine (FLU shot) Completed , 03/25/2019 GARDASIL-HPV IMMUNIZATION SERIES Aged Out No longer eligible b ased on patient's age to complete this topic Hepatitis B Aged Out No longer eligi ble based on patient's age to complete this topic MENINGOCOCCAL (MENACTRA/MENVEO) Aged Out No longer eligible b ased on patient's age to complete this topic documented as of this encounter Medical Devices Not on filedocumented as of this encounter Care Teams Prison Guard Supervisor Relationship Specialty Start Date End Date Jonathan Christianson DO [address] [place] [address] PCP - General Family Medicine 04/25/23 documented as of this encounter
[2023-11-04 13:22] LABS: Basophils # (auto) 0.03 K/uL (0.00-0.20); Basophils % (auto) 0.3 %; Eosinophils # (auto) 0.29 K/uL (0.00-0.50); Eosinophils % (auto) 3.3 %; Hemoglobin 12.8 g/dl (14.0-18.0); Immature Granulocytes # (auto) 0.05 K/uL (0.01-0.20); Immature Granulocytes % (auto) 0.6 %; Lymphocytes % (auto) 24.2 %; Mean Corpuscular Hemoglobin 30.7 pg (25.0-34.0); Mean Corpuscular Hgb Conc 33.7 g/dL (32.0-36.0); Mean Corpuscular Volume 91.1 fL (80.0-100.0); Mean Platelet Volume 9.5 fL (9.4-12.4); Monocytes # (auto) 0.71 K/uL (0.11-0.59); Monocytes % (auto) 8.2 %; Neutrophils # (auto) 5.51 K/uL (1.40-6.50); Neutrophils % (auto) 63.4 %; Platelet Count 312 K/uL (130-400); RDW Coefficient of Variation 14.6 % (11.5-14.5); RDW Standard Deviation 48.4 fL (36.4-46.3); Red Blood Count 4.17 M/uL (4.70-6.10); White Blood Count 8.69 K/ul (4.8-10.8)
[2023-11-04 13:33] LABS: Albumin Level 4.2 gm/dl (3.4-5.0); Anion Gap 10 (3-11); Bilirubin,Total 0.4 mg/dl (0.2-1.0); Calcium 9.6 mg/dl (8.6-10.3); Carbon Dioxide 21 mmol/L (21-32); Chloride 109 mmol/L (98-107); Potassium 3.8 mmol/L (3.5-5.1); Sodium 140 mmol/L (136-145)
[2023-11-04 13:38] LABS: Salicylate 5.8 mg/dl (3.0-30)
[2023-11-04 13:39] LABS: Alanine Aminotransferase 22 U/L (7-52); Albumin Globulin Ratio 1.8 (0.9-2); Alkaline Phosphatase 100 U/L (34-104); Aspartate Aminotransferase 24 U/L (13-39); BUN Creatinine Ratio 12.5 (10-20); Blood Urea Nitrogen 16 mg/dl (6-23); Est GFR (Non-African American) 51.8 ml/min; Globulin 2.4 gm/dl (2.5-4.0); Glucose 118 mg/dl (70-99(Fasting)); Total Protein 6.6 gm/dl (6.0-8.3)
--- NOTE | 2023-11-04 13:56 | CT Scan Report ---
CT head/brain wo con CLINICAL HISTORY: ams Technique: Contiguous axial CT images of the head were acquired from the base of the skull to the carmencita marcela without intravenous contrast administration. Images were viewed [facility] brain[facility]. Automated dose lowering techniques and/or adjustment according to patient size were utilized for this exam. Comparison: Comparison is made to CT head 12/01/2022 Findings: Areas of decreased attenuation are present in the periventricular and subcortical white matter bilate rally consistent with small vessel ischemic disease. Generalized cerebral atrophy with commensurate e nlargement of the ventricles, sulci, and cisterns is also present. There is no acute intracranial hem orrhage or evidence of acute territorial infarction. No shift of the midline structures, mass effect, or extra-axial abnormalities are shown. Atherosclerotic calcifications are present in the intracran ial segments of the internal carotid arteries. Imaged portions of the paranasal sinuses and mastoid air cells are clear. The orbits appear normal. There are no acute fractures of the calvaria or scalp swelling. Impression: No acute intracranial hemorrhage, no evidence of acute territorial infarction or other acute intracra nial disease process. ACT 112: Negative or not required by law. Electronically signed by: Shreyas Awad M.D. 11/04/2023 1:55 PM
[2023-11-04 14:02] LABS: Thyroid Stimulating Hormone 1.768 uIu/ml (0.300-4.500)
[2023-11-04 14:27] LABS: Troponin I High Sensitivity 20.7 pg/ml (0-20)
[2023-11-04 14:35] LABS: Appearance Urine Clear (Clear); Bacteria Urine Automated None Seen (None Seen); Bilirubin Urine Negative (Negative); Blood Urine Negative (Negative); Color Urine Yellow; Epithelial Cell Urine Auto 0-2 /hpf (0-2); Glucose Urine UA Negative (Negative); Ketones Urine Negative (Negative); Leukocyte Esterase Urine Negative (Negative); Nitrite Urine Negative (Negative); Protein Urine Trace (Negative); RBC Urine Automated 0-2 /hpf (0-2); Urobilinogen Urine Negative (Negative); WBC Urine Automated 0-5 /hpf (0-5); pH Urine 6.5 (4.5-7.5)
[2023-11-04 14:50] LABS: Amphetamines+Metham, Urine Neg (Neg); Barbiturates, Urine Neg (Neg); Benzodiazepine, Urine Neg (Neg); Cocaine, Urine Neg (Neg); MDMA (Ecstacy), Urine Neg (Neg); Marijuana, Urine Neg (Neg); Methadone, Urine Neg (Neg); Opiate, Urine Neg (Neg); Phencyclidine, Urine Neg (Neg)
--- NOTE | 2023-11-04 15:06 | XRay Report ---
XR chest 1V portable CLINICAL HISTORY: cp TECHNIQUE: Single frontal radiograph of the chest was obtained. Comparison: Comparison is made to chest radiograph 04/06/2023 FINDINGS: No lines and tubes are seen. The cardiomediastinal silhouette is stable. The lungs are clear. No evid ence of pleural effusion or pneumothorax. IMPRESSION: No acute chest disease. ACT 112: Negative or not required by law. Electronically signed by: Shreyas Awad M.D. 11/04/2023 3:04 PM
--- NOTE | 2023-11-04 15:16 | Emergency Department Note ---
History of Present Illness General Chief complaint: Anxiety Time Seen by Provider: 11/04/23 12:57 Source: patient and family () History of Present Illness Provider complaint: Panic attack 82-year-old male presents emergency department for panic attack. Patient is here with his . Patient states he is overwhelmed by his current health situations. reports he was recently diagnosed with dementia. Patient reports chest pain headache shortness of breath and that his mind is racing. Patient reports he has been having thoughts of wanting to kill himself. Home Medications Medication Instructions Recorded Confirmed Type acetaminophen 325 mg tablet 650 mg PO QID PRN Pain 12/01/22 11/04/23 History (Tylenol) aspirin 81 mg tablet,delayed 81 mg PO QAM 02/01/23 11/04/23 History release mecobalamin (vitamin B12) 1,000 1,000 mcg PO QAM 02/01/23 11/04/23 History mcg chewable tablet venlafaxine 225 mg tablet,extended 225 mg PO DAILY #90 tabs 03/29/23 11/04/23 Rx release 24 hr albuterol sulfate 90 mcg/actuation 2 puff inhalation Q6H PRN 04/09/23 11/04/23 Rx aerosol inhaler (Ventolin HFA) shortness of breath or wheezing #8.5 grams clopidogrel 75 mg tablet 75 mg PO DAILY #90 tabs 05/08/23 11/04/23 Rx CPAP Supplies #1 ea 05/16/23 10/18/23 Rx lisinopril 40 mg tablet 40 mg PO DAILY #90 tabs 06/06/23 11/04/23 Rx dexlansoprazole 60 mg 60 mg PO DAILY #30 caps 07/02/23 11/04/23 Rx capsule,biphase delayed release (Dexilant) donepezil 10 mg tablet (Aricept) 10 mg PO QAM #90 tabs 07/27/23 11/04/23 Rx rosuvastatin 40 mg tablet 40 mg PO QAM #90 tabs 07/27/23 11/04/23 Rx buspirone 10 mg tablet 10 mg PO DAILY PRN anxiety 90 days 09/26/23 11/04/23 Rx #90 tabs amlodipine 10 mg tablet 10 mg PO DAILY #90 tabs 10/02/23 11/04/23 Rx sucralfate 100 mg/mL oral 10 ml PO QID #1,000 mL 10/02/23 11/04/23 Rx suspension betamethasone dipropionate 0.05 % 1 applic topical BID #60 mL 10/18/23 11/04/23 Rx lotion fluticasone fur. 100 mcg-umeclid 1 inh inhalation QAM 11/04/23 11/04/23 History 62.5 mcg-vilant 25 mcg inhalat.powder (Trelegy Ellipta) memantine 5 mg tablet 5 mg PO BID 11/04/23 11/04/23 History Allergies Allergy/AdvReac Type Severity Reaction Status Date / Time No Known Allergies Allergy Unknown Verified 11/04/23 17:47 Past Med/Surg History Problem List (Updated 11/04/23 @ 19:39 by Pablo Orellana MD) Sleep apnea CPAP GERD (gastroesophageal reflux disease) Dementia Suicidal ideation Panic attack Non-ST elevation ID (NSTEMI) (Acute) Depression (Acute) Anxiety (Acute) Hematuria (Acute) Chronic heartburn S/P PTCA (percutaneous transluminal coronary angioplasty) D2 PTCA 05/02/23 LBBB (left bundle branch block) Presence of drug-eluting stent in anterior descending branch of left coronary artery Xience 2.75 x 33 mm KRISTOPHER deployed in mid LAD 05/02/23 CAD (coronary artery disease) Adenomatous duodenal polyp SIMMONS (dyspnea on exertion) Anxiety and depression Anemia Pulmonary nodule Abnormal EKG Cervical disc disease Multiple pulmonary nodules Muscle cramping Benign neoplasm of large intestine (Acute) Bowel incontinence (Acute) Diarrhea (Acute) Fatigue (Acute) Headache (Acute) History of nicotine dependence (Acute) Hypercholesterolemia (Acute) Low back pain (Acute) Male erectile disorder of organic origin (Acute) Pre-diabetes (Acute) SNHL (sensorineural hearing loss) (Acute) Sacroiliitis (Acute) Seborrheic keratosis (Acute) Sessile colonic polyp (Acute) Sleep apnea (Acute) Solitary pulmonary nodule (Acute) Tinnitus of both ears (Acute) Uveitis (Acute) Prostate cancer (Chronic 12/11/16) Hypertension Chronic obstructive pulmonary disease uses res inh daily > does not feel is working anymore Hematuria History of vitamin D deficiency Aortic root dilatation unaware of size, last checked November 2022 [place] Lumbar spinal stenosis Bulging disc Lumbosacral facet joint syndrome Lumbago Lumbar radiculopathy History of lumbar fusion L4-5, non-instrumented Sacroiliitis Medical History Stable angina Prediabetes diet controlled Anemia Rhinovirus infection continues with shortness of breath with heat/activity Bilateral headaches Abdominal pain CRP elevated Elevated erythrocyte sedimentation rate Hypomagnesemia Acute kidney injury superimposed on chronic kidney disease Weakness generalized in legs Abnormal CT of the abdomen reason for up coming colon/EGD Benign prostate hyperplasia Depression with anxiety Gastroesophageal reflux disease Senile dementia Fusion of spine L3-L4 Chronic back pain Osteoarthritis Urinary urgency Cancer PROSTATE CANCER, 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) GERD (gastroesophageal reflux disease) Mild dementia Hyperlipidemia Sleep apnea CPAP Surgical History History of heart artery stent 05/02/23 History of cardiac cath History of temporal artery biopsy (12/04/22) Bilateral Temporal Artery Biopsy(Bilateral) - Nestor Arboleda MD, FACS H/O shoulder surgery RIGHT SHOULDER TENDON REPAIR History of repair of rotator cuff RIGHT SHOULDER History of arthroscopy RIGHT KNEE History of discectomy LUMBAR AREA X2 History of bowel resection LAPRASCOPIC R/T VILLOUS ADENOMA History of colonoscopy History of adenoidectomy History of tonsillectomy History of cataract surgery BILATERAL Family History Father Cancer, Onset Age: 80 Hypertension Cardiac disorder Prostate cancer Mother age 97-unknown med problems Brother Cancer -unknown type of CA Brother Back pain Sister Dementia Denies family history of Ovarian cancer Coronary heart disease Breast cancer Colorectal cancer Social History Smoking Status: Never smoker Tobacco Type: Cigarettes Age Started Using Tobacco: 19; packs per day: 2; Cigarettes Per Day: 20; Second Hand Exposure: No; Do You Dip or Chew Tobacco: No; Hx Alcohol Use: No Hx Substance Use: No Preferred Language: Welsh Communication Ability: Effective Visual Impairment: Limited Hearing Ability: Hard of Hearing Medical Insurance Coding Specialist Required: No Beliefs That Will Affect Care: None marital status: Current Living Situation: Spouse current occupational status: retired current occupation: Retired Feels Safe at Home: Yes Childhood Exposure to Second-Hand Smoke: Yes Diet: regular caffeine: Yes Dental Care, Regularly: Yes Physical Activity Frequency: Does not Exercise Seatbelt Use: always Sunscreen Use: No Assistive Devices: CPAP and Glasses Physical Exam Vital Signs Vital Signs - 24 hr 11/04/23 12:48 11/04/23 13:13 11/04/23 14:01 Temperature 36.6 C Temperature Source Temporal Artery Scan Pulse Rate 100 H 90 Pulse Rate [Apical] Respiratory Rate 18 Respiratory Effort / Characteristics Respiratory Depth Respiratory Pattern Blood Pressure 167/100 H Blood Pressure [Left Arm] Blood Pressure Mean 122 Blood Pressure Mean [Left Arm] Blood Pressure Position [Left Arm] Pulse Oximetry 96 Oxygen Delivery Method Room Air Sepsis Recent Fever Within 48 Hours No Sepsis New/Unexplained Change in Mental Status N/A Sepsis Action Taken by Nursing No Action Required 11/04/23 14:05 11/04/23 16:04 11/04/23 17:02 Temperature Temperature Source Pulse Rate Pulse Rate [Apical] 90 80 Respiratory Rate 18 18 Respiratory Effort / Characteristics Non-Labored Spontaneous Non-Labored Spontaneous Respiratory Depth Normal Normal Respiratory Pattern Regular Regular Blood Pressure Blood Pressure [Left Arm] 124/83 164/94 H 156/105 H Blood Pressure Mean Blood Pressure Mean [Left Arm] 96 117 122 Blood Pressure Position [Left Arm] Lying Lying Lying Pulse Oximetry 95 100 Oxygen Delivery Method Room Air Room Air Sepsis Recent Fever Within 48 Hours Sepsis New/Unexplained Change in Mental Status Sepsis Action Taken by Nursing 11/04/23 18:30 11/04/23 18:41 Temperature Temperature Source Pulse Rate 79 Pulse Rate [Apical] 80 Respiratory Rate 18 Respiratory Effort / Characteristics Non-Labored Spontaneous Respiratory Depth Normal Respiratory Pattern Regular Blood Pressure Blood Pressure [Left Arm] 141/99 H Blood Pressure Mean Blood Pressure Mean [Left Arm] 113 Blood Pressure Position [Left Arm] Lying Pulse Oximetry 98 Oxygen Delivery Method Room Air Sepsis Recent Fever Within 48 Hours Sepsis New/Unexplained Change in Mental Status Sepsis Action Taken by Nursing Physical Exam GENERAL: Patient is hyperventilating and crying clutching his . HENT: Exam performed. - Head: Normocephalic and atraumatic. EYES: Conjunctivae and EOM are normal. Right eye exhibits no discharge. Left eye exhibits no discharge. No scleral icterus. NECK: Normal range of motion. Neck supple. No JVD present. CV: Normal rate, regular rhythm, normal heart sounds and intact distal pulses. There is no peripheral edema. Palpable radial pulses bue. PULM/CHEST: Breath sounds normal. No respiratory distress. No stridor. no wheezes. no rales. ABD: The abdomen is soft. There is no tenderness. NEURO: Motor and sensation grossly intact. SKIN: Skin is warm and dry. He is not diaphoretic. PSYCH: Suicidal ideation. Course Course 1257: The patient was evaluated in room B10. A complete history and physical exam was performed Cardiac monitoring: An order was placed for continuous cardiac monitoring. The monitor shows a rate of 80 with sinus rhythm interpreted by me 1350: Patient appears more comfortable after Ativan. 1700: Vital signs stable. Patient appears very angry now and wants to leave. Patient now saying is not suicidal and wants to leave immediately. He states we are holding him against his will here. I explained to him where not holding him here against his will and we are concerned for his wellbeing given his age his cardiac history and his symptoms of chest pain difficulty breathing while having a panic attack earlier. Patient's initial cardiac enzymes were elevated at 20.7. Will conduct delta troponin and if it is trending downwards or stable we will plan on discharging the patient. 180: Vital signs stable. Patient's delta troponin increased to 23. Given his age and risk factors and the delta troponin trending upwards I advised the patient and the to be admitted to the hospital for further cardiac workup. The and the patient both adamantly refused. The states he is getting worse being here. I Splane to them that we could treat him with Ativan which previously helped his demeanor and disposition. They stated they wish to not do that and are demanding to leave AMA. I explained to the that the patient came in today with chest pain difficulty breathing and a presumed anxiety attack. I explaiend to the that if they choose to leave AMA this could result in a heart attack, arrhythmia, heart failure, stroke, disability or permanent injury. She stated she understood and still wished to leave AMA. 1816: I went back in to have the signed the A paperwork and now both she and the patient are both saying that they do not wish to leave AMA and wish to be admitted for further workup given his symptoms and elevated troponins. Patient is now saying he does not want to and wants to be admitted to have medical care. states that the patient will stay if he can get another Ativan. Ativan ordered for the patient. Discussed case with [facility] hospitalist Dr. Orellana who states he will evaluate the patient for admission. Administered Medications Discontinued Medications Aspirin (Aspirin 81 Mg Chew) 324 mg PO NOW STA Stop: 11/04/23 18:07 Last Admin: 11/04/23 18:16 Dose: 324 mg Documented By: KWAME Lorazepam (Lorazepam 1 Mg Tab) 1 mg SL NOW STA Stop: 11/04/23 13:16 Last Admin: 11/04/23 13:18 Dose: 1 mg Documented By: DEVIN Lorazepam (Lorazepam 1 Mg Tab) 1 mg SL NOW STA Stop: 11/04/23 18:06 Last Admin: 11/04/23 18:16 Dose: 1 mg Documented By: KWAME Medical Decision Making Laboratory Data Attestation: I reviewed the patient's lab results. 11/04/23 13:09 11/04/23 13:09 Lab Results 11/04/23 11/04/23 11/04/23 Range/Units 13:09 14:18 17:00 WBC 8.69 (4.8-10.8) K/ul RBC 4.17 L (4.70-6.10) M/uL Hgb 12.8 L (14.0-18.0) g/dl Hct 38.0 L (42.0-52.0) % MCV 91.1 (80.0-100.0) fL MCH 30.7 (25.0-34.0) pg MCHC 33.7 (32.0-36.0) g/dL RDW Std Deviation 48.4 H (36.4-46.3) fL RDW Coeff of Tabatha 14.6 H (11.5-14.5) % Plt Count 312 (130-400) K/uL MPV 9.5 (9.4-12.4) fL Immature Gran % (Auto) 0.6 % Neut % (Auto) 63.4 % Lymph % (Auto) 24.2 % [place] % (Auto) 8.2 % Eos % (Auto) 3.3 % Baso % (Auto) 0.3 % Neut # (Auto) 5.51 (1.40-6.50) K/uL Lymph # (Auto) 2.10 (1.20-3.40) K/uL [place] # (Auto) 0.71 H (0.11-0.59) K/uL Eos # (Auto) 0.29 (0.00-0.50) K/uL Baso # (Auto) 0.03 (0.00-0.20) K/uL Immature Gran # (Auto) 0.05 (0.01-0.20) K/uL Sodium 140 (136-145) mmol/L Potassium 3.8 (3.5-5.1) mmol/L Chloride 109 H (98-107) mmol/L Carbon Dioxide 21 (21-32) mmol/L Anion Gap 10 (3-11) BUN 16 (6-23) mg/dl Creatinine 1.28 (0.6-1.4) mg/dl Est Cr Clr Drug Dosing Not Reportable Est GFR ( Amer) 60.0 ml/min Est GFR (Non-Af Amer) 51.8 ml/min BUN/Creatinine Ratio 12.5 (10-20) Glucose 118 H (70-99(Fasting)) mg/dl Calcium 9.6 (8.6-10.3) mg/dl Total Bilirubin 0.4 (0.2-1.0) mg/dl AST 24 (13-39) U/L ALT 22 (7-52) U/L Alkaline Phosphatase 100 (34-104) U/L Troponin I High Sens 20.7 H 23.0 H (0-20) pg/ml Total Protein 6.6 (6.0-8.3) gm/dl Albumin 4.2 (3.4-5.0) gm/dl Globulin 2.4 L (2.5-4.0) gm/dl Albumin/Globulin Ratio 1.8 (0.9-2) TSH 1.768 (0.300-4.500) uIu/ml Urine Color Yellow Urine Appearance Clear (Clear) Urine pH 6.5 (4.5-7.5) Ur Specific [place] 1.010 (1.000-1.030) Urine Protein Trace H (Negative) Urine Glucose (UA) Negative (Negative) Urine Ketones Negative (Negative) Urine Blood Negative (Negative) Urine Nitrite Negative (Negative) Urine Bilirubin Negative (Negative) Urine Urobilinogen Negative (Negative) Ur Leukocyte Esterase Negative (Negative) Urine WBC (Auto) 0-5 (0-5) /hpf Urine RBC (Auto) 0-2 (0-2) /hpf U Hyaline Cast (Auto) 3-5 H (0-2) /lpf U Epithel Cells (Auto) 0-2 (0-2) /hpf Urine Bacteria (Auto) None Seen (None Seen) Salicylates 5.8 (3.0-30) mg/dl Urine Opiates Screen Neg (Neg) Ur Methadone, Qual Neg (Neg) Acetaminophen 15 (10-30) ug/ml Urine Barbiturates Neg (Neg) Ur Phencyclidine (PCP) Neg (Neg) U Amphetamin/Meth Scrn Neg (Neg) MDMA (Ecstasy) Screen Neg (Neg) U Benzodiazepines Scrn Neg (Neg) Ur Cocaine Metabolite Neg (Neg) U Marijuana (THC) Screen Neg (Neg) Ethyl Alcohol mg/dL < 10.0 (<10.0) mg/dl Imaging Data Attestation: I personally reviewed and interpreted this imaging study as follows: My Impression: Chest x-ray negative. Airway clear. No pneumothorax. No consolidation. No cardiomegaly or cephalization.. No free air under the diaphragm. No fractures of the skeletal structures. Radiologist's Impression: Head CT 11/04/23 12:57 CT head/brain wo con CLINICAL HISTORY: ams Technique: Contiguous axial CT images of the head were acquired from the base of the skull to the vertex without intravenous contrast administration. Images were viewed in brain, subdural and bone windows. Automated dose lowering techniques and/or adjustment according to patient size were utilized for this exam. Comparison: Comparison is made to CT head 12/01/2022 Findings: Areas of decreased attenuation are present in the periventricular and subcortical white matter bilaterally consistent with small vessel ischemic disease. Generalized cerebral atrophy with commensurate enlargement of the ventricles, sulci, and cisterns is also present. There is no acute intracranial hemorrhage or evidence of acute territorial infarction. No shift of the midline structures, mass effect, or extra-axial abnormalities are shown. Atherosclerotic calcifications are present in the intracranial segments of the internal carotid arteries. Imaged portions of the paranasal sinuses and mastoid air cells are clear. The orbits appear normal. There are no acute fractures of the calvaria or scalp swelling. Impression: No acute intracranial hemorrhage, no evidence of acute territorial infarction or other acute intracranial disease process. ACT 112: Negative or not required by law. Electronically signed by: Shreyas Awad M.D. 11/04/2023 1:55 PM Chest X-Ray 11/04/23 13:15 XR chest 1V portable CLINICAL HISTORY: cp TECHNIQUE: Single frontal radiograph of the chest was obtained. Comparison: Comparison is made to chest radiograph 04/06/2023 FINDINGS: No lines and tubes are seen. The cardiomediastinal silhouette is stable. The lungs are clear. No evidence of pleural effusion or pneumothorax. IMPRESSION: No acute chest disease. ACT 112: Negative or not required by law. Electronically signed by: Shreyas Awad M.D. 11/04/2023 3:04 PM ECG Data Attestation: I personally reviewed and interpreted this ECG as follows: Indication: + chest pain Rate (beats per minute): 80 Rhythm: + normal sinus ECG Intervals/blocks: + Left bundle branch block Additional Comments: sgarbosa negative no significant changes from EKG September 2023 [facility] Narrative 1257: The patient was evaluated in room B10. A complete history and physical exam was performed Cardiac monitoring: An order was placed for continuous cardiac monitoring. The monitor shows a rate of 80 with sinus rhythm interpreted by me 1350: Patient appears more comfortable after Ativan. 1700: Vital signs stable. Patient appears very angry now and wants to leave. Patient now saying is not suicidal and wants to leave immediately. He states we are holding him against his will here. I explained to him where not holding him here against his will and we are concerned for his wellbeing given his age his cardiac history and his symptoms of chest pain difficulty breathing while having a panic attack earlier. Patient's initial cardiac enzymes were elevated at 20.7. Will conduct delta troponin and if it is trending downwards or stable we will plan on discharging the patient. 180: Vital signs stable. Patient's delta troponin increased to 23. Given his age and risk factors and the delta troponin trending upwards I advised the patient and the to be admitted to the hospital for further cardiac workup. The and the patient both adamantly refused. The states he is getting worse being here. I Splane to them that we could treat him with Ativan which previously helped his demeanor and disposition. They stated they wish to not do that and are demanding to leave AMA. I explained to the that the patient came in today with chest pain difficulty breathing and a presumed anxiety attack. I explaiend to the that if they choose to leave AMA this could result in a heart attack, arrhythmia, heart failure, stroke, disability or permanent injury. She stated she understood and still wished to leave AMA. 1816: I went back in to have the signed the AMA paperwork and now both she and the patient are both saying that they do not wish to leave AMA and wish to be admitted for further workup given his symptoms and elevated troponins. Patient is now saying he does not want to and wants to be admitted to have medical care. states that the patient will stay if he can get another Ativan. Ativan ordered for the patient. Discussed case with [facility] hospitalist Dr. Orellana who states he will evaluate the patient for admission. Impression & Plan Non-ST elevation ID (NSTEMI), Anxiety, Depression Discharge Plan Visit Data Chief Complaint: Anxiety ED Provider: Alek Prieto Discharge Problem: Non-ST elevation ID (NSTEMI), Anxiety, Depression Patient Disposition: Being Evaluated by Hospitalist Discharge Instructions Krames/Other Patient Handouts: First Aid: Heart Attacks, Depression: Tips to Help Yourself, Depression Family Support, Your Heart Is at Risk, Warning Signs of a Heart Attack, ED Anxiety Reaction, ED Depression, ED Panic Attack Activity Restrictions/Additional Instructions: Your family member came in today with chest pain difficulty breathing and a presumed anxiety attack. His troponin was elevated and was trending upward. This could represent a blockage in one of his coronary arteries and cause heart attack. There could be heart cells/tissue that are being negatively affected by potential blockage causing this elevated troponin. You are made aware of this and chose to leave AMA. You understand that this could result in a heart attack, arrhythmia, heart failure, stroke, disability or permanent injury. Please follow-up with your machine rope maker and PCP soon as possible and return to the emergency department for any symptoms of increasing chest pain difficulty breathing altered mental status loss of consciousness fainting or if her symptoms recur or worsen. Forms Stand Alone Forms: [facility], Suicide Prevention Resources, Important Visit Information Prescriptions Prescriptions: No Action venlafaxine 225 mg tablet extended release 24hr 225 mg PO DAILY Qty: 90 3RF albuterol sulfate [Ventolin HFA] 90 mcg/actuation HFA aerosol inhaler 2 puff inhalation Q6H PRN (Reason: shortness of breath or wheezing) Qty: 8.5 5RF (DME) CPAP Supplies Misc See Rx Instructions .Route Qty: 1 3RF Rx Instructions: tubing, Head gear ,mask of pt choice,filters and any other supplies needed. LON99 dexlansoprazole [Dexilant] 60 mg capsule,biphase delayed releas 60 mg PO DAILY Qty: 30 2RF rosuvastatin 40 mg tablet 40 mg PO QAM Qty: 90 3RF donepezil [Aricept] 10 mg tablet 10 mg PO QAM Qty: 90 3RF buspirone 10 mg tablet 10 mg PO DAILY PRN (Reason: anxiety) 90 Days Qty: 90 3RF amlodipine 10 mg tablet 10 mg PO DAILY Qty: 90 3RF sucralfate 100 mg/mL suspension 10 ml PO QID Qty: 1000 0RF Rx Instructions: swish in mouth and swallow; use after food/drink lisinopril 40 mg tablet 40 mg PO DAILY Qty: 90 3RF clopidogrel 75 mg tablet 75 mg PO DAILY Qty: 90 3RF betamethasone dipropionate 0.05 % lotion 1 applic topical BID Qty: 60 0RF Rx Instructions: Apply to areas of the scalp and chest twice daily for up to 2 weeks as needed for flaring. aspirin 81 mg tablet,delayed release (DR/EC) 81 mg PO QAM mecobalamin (vitamin B12) 1,000 mcg tablet,chewable 1,000 mcg PO QAM acetaminophen [Tylenol] 325 mg Tablet 650 mg PO QID PRN (Reason: Pain) memantine 5 mg tablet 5 mg PO BID Trelegy Ellipta 100-62.5-25 mcg blister with device 1 inh inhalation QAM Rx Instructions: INHALE 1 PUFF BY MOUTH ONCE DAILY Referrals Referrals: Jonathan Christianson DO [Primary Care Provider] - (Follow-up in 1 to 2 days.) Discharge Problem: Depression Qualifiers: Depression Type: unspecified Qualified Code(s): F32.A - Depression, unspecified
[2023-11-04] MEDS: ASPIRIN 81 MG CHEW PO STA (18:16)
--- NOTE | 2023-11-04 19:19 | History & Physical Report ---
Date of Service November 04, 2023 Assessment & Plan (1) Anxiety and depression: Plan: Anxiety, depression, expressed SI Patient with panic attacks and significant anxiety regarding his medical comorbidities Expect suicidal ideation to ER provider initially, although subsequently retracted this He reports that he has had suicidal ideation for a long time, both passive and with plan, but this is improved since starting BuSpar a few months ago. Did have passive SI today, denies recent plan. Room to uptitrate BuSpar, will defer changes to psych evaluation Reports he has never experienced panic attack like he experienced today. [place] like everything overwhelmed once, he could not breathe, and felt panicked with extreme anxiety until he was treated in the ER. Would like to discuss medication adjustments and additional care with psychiatry while inpatient Psych liaison consulted (2) Panic attack: Plan: As noted. Ativan twice daily as needed continued (3) Suicidal ideation: Plan: Endorses passive but not current active SI. Patient does express that he feels if his ideation became active, or he had return of intention/plan he would be comfortable reaching out to providers to let them know - Psych liason consulted (4) CAD (coronary artery disease): Plan: CAD with history of PCI 2022 Mildly elevated troponin Chest pain improved at time of provider assessment Troponin trended overnight Echo ordered Aspirin/Plavix continued Lisinopril continued Rosuvastatin continued Suspect due to stress/demand however patient has had significant dyspnea on minimal exertion and has underlying CAD. If recurrent symptoms despite t reatment of panic attacks, can follow-up with a nuclear stress echo. Has an underlying BBB (5) Chronic obstructive pulmonary disease: Plan: Chronic obstructive pulmonary disease Continue inhaler/formulary equivalent No wheezing on admission SpO2 goal greater than 90% No acute exacerbation on admission (6) Dementia: Plan: Dementia Recent diagnosis Continue Aricept/Namenda (7) Hematuria: Plan: History of prostate cancer With hematuria. Treated with radiation, did have some subsequent bleeding/clots. Passed a voiding trial 10/23 after having a Begum in place Patient has had recurrent intermittent hematuria with clots; however UA on admission is negative for blood His pending outpatient cystoscopy, but has been having difficulty scheduling appointments If recurrent symptoms while inpatient can consult urology; however no indication for urgent cystoscopy at this time and hematuria is not present on admitting UA. (8) GERD (gastroesophageal reflux disease): Plan: GERD EGD 2022 with tubular adenoma and small hiatal hernia. Continue PPI, Carafate (9) Sleep apnea: Plan: CPAP nightly Plan DVT prophylaxis: SCDs,pharmacoprophylaxis held due to recurrent/persistent h ematuria Diet CODE STATUS DNR/DNI History of Present Illness Primary Care Provider: Jonathan Christianson DO Efrain is an 82-year-old male who presents to the emergency department with a panic attack. Per ER signout patient felt overwhelmed with his health conditions, reported chest pain, shortness of breath, racing thoughts, and that he was overwhelmed by thoughts of wanting to be and his medical conditions including dementia.. Patient received Ativan in the ER and was initially more comfortable, subsequently demanded to leave immediately around 1500 and expressed ER providers that he was being held against his will. Given his cardiac history and chest pain with mildly elevated troponin 20.1 patient was recommended to stay for a delta troponin. His delta troponin increased and was recommended to stay for cardiac evaluation. Patient initially demanded to leave AGAINST MEDICAL ADVICE, however upon signing AMA paperwork from ER provider then said that they did not wish to leave and patient would like to be admitted overnight but requested an additional dose of Ativan. Efrain is seen at the bedside. He reports that he has had severe anxiety in the past however feels his multiple medical comorbidities, difficulty scheduling appointments, and overall decline in health and feeling like he has been a burden to his all overwhelmed him this morning leading to a panic attack. He reports he has had small anxiety flares in the past, but is never experienced an anxiety/panic attack like this morning and this made him further short of breath with difficulty breathing and transient chest pain. This resolved following Ativan in the ER. He reports he is completely chest pain-free. He has not had chest pain on exertion, but notes his exertion is limited by significant dyspnea. He does not walk very far and does get quickly short of breath and sometimes has sweats with his shortness of breath in the last few weeks. Again no chest pain with these episodes. He has not had any orthopnea denies leg swelling. Denies fever, chills, sweats. No abdominal pain. No nausea/vomiting. No hematochezia/melena He reports feeling overwhelmed by his medical comorbidities and notes his anxiety has been much worse. Has been trying to get into talk to someone but has had difficulty enrolling with a therapist or psychiatrist with multiple week weights. He has been on venlafaxine for a long time, has not had a dose adjustment and "a very long time "although did have buspirone started at 10 mg daily a few months ago and thinks this did help with his suicidal ideation overall. Denies straight panic attacks before today. Feels improved at the bedside and notes that both the medicine he received earlier, and being admitted and talking through plan seems to have helped his anxiety significantly. He endorses passive SI at time of admission, denies current plan/active SI. Denies hallucinations. Medical History: Reviewed Medications: Reviewed Surgical History: Reviewed Family history: Reviewed Allergies: Reviewed Social History: Reviewed Code Status: DNR/DNI, confirmed w pt and at bedside Allergies Allergy/AdvReac Type Severity Reaction Status Date / Time No Known Allergies Allergy Unknown Verified 11/04/23 17:47 Home Medications Medication Instructions Recorded Confirmed Type acetaminophen 325 mg tablet 650 mg PO QID PRN Pain 12/01/22 11/04/23 History (Tylenol) aspirin 81 mg tablet,delayed 81 mg PO QAM 02/01/23 11/04/23 History release mecobalamin (vitamin B12) 1,000 1,000 mcg PO QAM 02/01/23 11/04/23 History mcg chewable tablet venlafaxine 225 mg tablet,extended 225 mg PO DAILY #90 tabs 03/29/23 11/04/23 Rx release 24 hr albuterol sulfate 90 mcg/actuation 2 puff inhalation Q6H PRN 04/09/23 11/04/23 Rx aerosol inhaler (Ventolin HFA) shortness of breath or wheezing #8.5 grams clopidogrel 75 mg tablet 75 mg PO DAILY #90 tabs 05/08/23 11/04/23 Rx CPAP Supplies #1 ea 05/16/23 10/18/23 Rx lisinopril 40 mg tablet 40 mg PO DAILY #90 tabs 06/06/23 11/04/23 Rx dexlansoprazole 60 mg 60 mg PO DAILY #30 caps 07/02/23 11/04/23 Rx capsule,biphase delayed release (Dexilant) donepezil 10 mg tablet (Aricept) 10 mg PO QAM #90 tabs 07/27/23 11/04/23 Rx rosuvastatin 40 mg tablet 40 mg PO QAM #90 tabs 07/27/23 11/04/23 Rx buspirone 10 mg tablet 10 mg PO DAILY PRN anxiety 90 days 09/26/23 11/04/23 Rx #90 tabs amlodipine 10 mg tablet 10 mg PO DAILY #90 tabs 10/02/23 11/04/23 Rx sucralfate 100 mg/mL oral 10 ml PO QID #1,000 mL 10/02/23 11/04/23 Rx suspension betamethasone dipropionate 0.05 % 1 applic topical BID #60 mL 10/18/23 11/04/23 Rx lotion fluticasone fur. 100 mcg-umeclid 1 inh inhalation QAM 11/04/23 11/04/23 History 62.5 mcg-vilant 25 mcg inhalat.powder (Trelegy Ellipta) memantine 5 mg tablet 5 mg PO BID 11/04/23 11/04/23 History Past Med/Surg History Problem List (Updated 11/04/23 @ 19:39 by Pablo Orellana MD) Sleep apnea CPAP GERD (gastroesophageal reflux disease) Dementia Suicidal ideation Panic attack Non-ST elevation NC (NSTEMI) (Acute) Depression (Acute) Anxiety (Acute) Hematuria (Acute) Chronic heartburn S/P PTCA (percutaneous transluminal coronary angioplasty) D2 PTCA 05/02/23 LBBB (left bundle branch block) Presence of drug-eluting stent in anterior descending branch of left coronary artery Xience 2.75 x 33 mm KRISTOPHER deployed in mid LAD 05/02/23 CAD (coronary artery disease) Adenomatous duodenal polyp SIMMONS (dyspnea on exertion) Anxiety and depression Anemia Pulmonary nodule Abnormal EKG Cervical disc disease Multiple pulmonary nodules Muscle cramping Benign neoplasm of large intestine (Acute) Bowel incontinence (Acute) Diarrhea (Acute) Fatigue (Acute) Headache (Acute) History of nicotine dependence (Acute) Hypercholesterolemia (Acute) Low back pain (Acute) Male erectile disorder of organic origin (Acute) Pre-diabetes (Acute) SNHL (sensorineural hearing loss) (Acute) Sacroiliitis (Acute) Seborrheic keratosis (Acute) Sessile colonic polyp (Acute) Sleep apnea (Acute) Solitary pulmonary nodule (Acute) Tinnitus of both ears (Acute) Uveitis (Acute) Prostate cancer (Chronic 12/11/16) Hypertension Chronic obstructive pulmonary disease uses res inh daily > does not feel is working anymore Hematuria History of vitamin D deficiency Aortic root dilatation unaware of size, last checked November 2022 [place] Lumbar spinal stenosis Bulging disc Lumbosacral facet joint syndrome Lumbago Lumbar radiculopathy History of lumbar fusion L4-5, non-instrumented Sacroiliitis Medical History Stable angina Prediabetes diet controlled Anemia Rhinovirus infection continues with shortness of breath with heat/activity Bilateral headaches Abdominal pain CRP elevated Elevated erythrocyte sedimentation rate Hypomagnesemia Acute kidney injury superimposed on chronic kidney disease Weakness generalized in legs Abnormal CT of the abdomen reason for up coming colon/EGD Benign prostate hyperplasia Depression with anxiety Gastroesophageal reflux disease Senile dementia Fusion of spine L3-L4 Chronic back pain Osteoarthritis Urinary urgency Cancer PROSTATE CANCER, 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) GERD (gastroesophageal reflux disease) Mild dementia Hyperlipidemia Sleep apnea CPAP Surgical History History of heart artery stent 05/02/23 History of cardiac cath History of temporal artery biopsy (12/04/22) Bilateral Temporal Artery Biopsy(Bilateral) - Nestor Arboleda MD, FACS H/O shoulder surgery RIGHT SHOULDER TENDON REPAIR History of repair of rotator cuff RIGHT SHOULDER History of arthroscopy RIGHT KNEE History of discectomy LUMBAR AREA X2 History of bowel resection LAPRASCOPIC R/T VILLOUS ADENOMA History of colonoscopy History of adenoidectomy History of tonsillectomy History of cataract surgery BILATERAL Family History Father Cancer, Onset Age: 80 Hypertension Cardiac disorder Prostate cancer Mother age 97-unknown med problems Brother Cancer -unknown type of CA Brother Back pain Sister Dementia Denies family history of Ovarian cancer Coronary heart disease Breast cancer Colorectal cancer Social History Smoking Status: Never smoker Tobacco Type: Cigarettes Age Started Using Tobacco: 19; packs per day: 2; Cigarettes Per Day: 20; Second Hand Exposure: No; Do You Dip or Chew Tobacco: No; Hx Alcohol Use: No Hx Substance Use: No Preferred Language: Greek Communication Ability: Effective Visual Impairment: Limited Hearing Ability: Hard of Hearing 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 Calm at time of admission. Endorses severe anxiety with medical conditions. Mood congruent. Thought process linear. HEENT: Atraumatic, normocephalic. Pulm: CTAB A&P. -wheezes, -rales, -rhonchi. Symmetrical chest rise. No increased work of breathing. No respiratory distress. Cardiac: RRR, +sm. Radial pulses intact and symmetrical. Abdominal: Nontender, nondistended, soft. BS present. Results & Data Results & Data Vital Signs (Past 12 Hours) Vital Signs Temp Pulse Pulse Resp BP BP Pulse Ox 11/04/23 18:41 79 11/04/23 18:30 80 18 141/99 H 98 11/04/23 17:02 156/105 H 11/04/23 16:04 80 18 164/94 H 100 11/04/23 14:05 90 18 124/83 95 11/04/23 14:01 11/04/23 13:13 90 11/04/23 12:48 36.6 C 100 H 18 167/100 H 96 O2 Del Method 11/04/23 18:41 11/04/23 18:30 Room Air 11/04/23 17:02 11/04/23 16:04 Room Air 11/04/23 14:05 Room Air 11/04/23 14:01 Room Air 11/04/23 13:13 11/04/23 12:48 PG Care Time/CCT Total # of Minutes Spent Total Time Spent with Patient: Total time spent is greater than 50% in coordination of care (as documented) at patient's floor/unit and/or counseling patient: Coding Level of Care Code 40121 INT INP/OBS CARE 3/75MIN Diagnoses Anxiety and depression F41.9; F32.A Panic attack F41.0 Suicidal ideation R45.851 Coronary artery disease involving [place] coronary artery of [place] heart without angina pectoris I25.10 Coronary Disease-Associated Artery/Lesion type: [place] artery [place] vs. transplanted heart: [place] heart Associated angina: without angina Pulmonary emphysema, unspecified emphysema type J43.9 COPD type: emphysema Emphysema type: unspecified Dementia F03.90 Hematuria R31.9 GERD (gastroesophageal reflux disease) K21.9 Sleep apnea G47.30 (4) CAD (coronary artery disease) Coronary Disease-Associated Artery/Lesion type: [place] artery [place] vs. transplanted heart: [place] heart Associated angina: without angina Qualified Code(s): I25.10 - Atherosclerotic heart disease of [place] coronary artery without angina pectoris (5) Chronic obstructive pulmonary disease COPD type: emphysema Emphysema type: unspecified Qualified Code(s): J43.9 - Emphysema, unspecified
[2023-11-04] MEDS ORDERED: LORazepam 1 MG in SYRINGE 0.5 ML IV PRN (19:51)
[2023-11-04] MEDS: THIAMINE HCL 100 MG in SYRINGE 9 ML IV SCH (20:30)
[2023-11-04] MEDS ORDERED: ALBUTEROL HFA 8 GM INHALER INH PRN (21:46)
[2023-11-04] MEDS: ACETAMINOPHEN 325 MG TAB PO PRN (22:02)
[2023-11-04] MEDS: busPIRone 5 MG TAB PO PRN (22:10)
[2023-11-04] MEDS: SUCRALFATE 1 GM/10 ML UDC PO SCH (22:10)
[2023-11-04] MEDS: MEMANTINE HCL 5 MG TAB PO SCH (22:10)
[2023-11-04] MEDS: HYDROmorphone INJ 0.5 MG/0.5 ML SYR IV STA (23:03)
[2023-11-05 06:00] LABS: Basophils # (auto) 0.03 K/uL (0.00-0.20); Basophils % (auto) 0.5 %; Eosinophils # (auto) 0.31 K/uL (0.00-0.50); Eosinophils % (auto) 4.8 %; Hematocrit (blood only) 34.1 % (42.0-52.0); Hemoglobin 11.4 g/dl (14.0-18.0); Immature Granulocytes # (auto) 0.03 K/uL (0.01-0.20); Immature Granulocytes % (auto) 0.5 %; Lymphocytes # (auto) 1.34 K/uL (1.20-3.40); Lymphocytes % (auto) 20.8 %; Mean Corpuscular Hemoglobin 30.9 pg (25.0-34.0); Mean Corpuscular Hgb Conc 33.4 g/dL (32.0-36.0); Mean Corpuscular Volume 92.4 fL (80.0-100.0); Mean Platelet Volume 9.6 fL (9.4-12.4); Monocytes # (auto) 0.48 K/uL (0.11-0.59); Monocytes % (auto) 7.5 %; Neutrophils # (auto) 4.25 K/uL (1.40-6.50); Neutrophils % (auto) 65.9 %; Platelet Count 272 K/uL (130-400); RDW Coefficient of Variation 14.4 % (11.5-14.5); RDW Standard Deviation 48.5 fL (36.4-46.3); Red Blood Count 3.69 M/uL (4.70-6.10); White Blood Count 6.44 K/ul (4.8-10.8)
[2023-11-05 06:18] LABS: BUN Creatinine Ratio 12.4 (10-20); Calcium 9.2 mg/dl (8.6-10.3); Creatinine Clr Calc Pharmacy 52.8 ml/min; Est GFR (African American) 64.2 ml/min; Est GFR (Non-African American) 55.4 ml/min; Potassium 4.3 mmol/L (3.5-5.1)
[2023-11-05 06:24] LABS: Troponin I High Sensitivity 25.4 pg/ml (0-20)
--- NOTE | 2023-11-05 07:02 | Electrocardiogram Report ---
Test Reason : Blood Pressure : / mmHG Vent. Rate : 080 BPM Atrial Rate : 080 BPM P-R Int : 196 ms QRS Dur : 126 ms QT Int : 428 ms P-R-T Axes : 065 -31 096 degrees QTc Int : 493 ms Normal sinus rhythm Left axis deviation Left bundle branch block Abnormal ECG When compared with ECG of 04-NOV-2023 13:24, (unconfirmed) No significant change was found Confirmed by Kip Lr ([id number]) on 11/05/2023 7:01:55 AM Referred By: REFERRED SELF Confirmed By:Won Lr
[2023-11-05] MEDS: CLOPIDOGREL BISULFATE 75 MG TAB PO SCH (08:50)
[2023-11-05] MEDS: amLODIPine BESYLATE 5 MG TAB PO SCH (08:50)
[2023-11-05] MEDS: ASPIRIN 81 MG ECTAB PO SCH (08:51)
[2023-11-05] MEDS: ROSUVASTATIN CALCIUM 20 MG TAB PO SCH (08:51)
[2023-11-05] MEDS: DONEPEZIL HCL 10 MG TAB PO SCH (08:51)
[2023-11-05] MEDS: VENLAFAXINE HCL XR 75 MG CAPXR PO SCH (08:51)
[2023-11-05] MEDS: lisinopril 40 MG TAB PO SCH (08:51)
[2023-11-05] MEDS: UMECLIDINIUM/VILANTEROL 62.5/25MCG 7 PUFFS/INHALER INH SCH (08:52)
[2023-11-05] MEDS: PANTOprazole 40 MG TAB PO SCH (08:52)
[2023-11-05] MEDS: FLUTICASONE FUROATE 100MCG 14 PUFFS/INHALER INH SCH (08:52)
--- NOTE | 2023-11-05 11:33 | Psychiatric Consultation ---
Date of Consultation November 05, 2023 Impression / Recommendations Impression Diagnostically consistent with unspecified depression and anxiety, likely a combination of MDD, BRETT with panic attacks and mood symptoms secondary to memory loss/neurocognitive disorder. Much of his distress seems related to increased difficulty due to physical limitations and increased reliance on his which makes him feel like a burden. Encouragingly even though he experiences intermittent passive SI he denies any history of prior attempts, denies any current SI, and adamantly and convincingly describes significant deterrents and strong reasons for living including his , extended family, friends and enjoying life. He is motivated to start psychotherapy which is going to be the most helpful intervention as he navigates the life stage of integrity vs despair and living with new limitations. From a medication standpoint agree with use of SNRI. Recommend scheduling Buspar for optimal efficacy (which appears to be how it has been prescribed in the outpatient setting as 10mg BID scheduled) and titrating dose (as long as QTc remains <500ms). Consider further dose titrations and augmentation for depression and anxiety per below. We also reviewed non-pharmacologic strategies for managing panic attacks including breathing. Acute risk of self-harm is low given denial of active SI, strong deterrents, future-oriented, enjoys his life, and hopefulness. Chronic risk is moderate given some non-modifiable risk factors including chronic medical conditions but also with many protective factors including strong social support, , responsible for helping care for young child, motivated for therapy. Overall, I spent a total of 60 minutes with this case including review of chart records, review of labwork, review of EKG QTc, direct evaluation of the patient at bedside, counseling the patient, discussion of the patient with the hospitalist provider, discussion with the psychiatric liason during clinical rounds and documentation in the electronic health record. (1) Panic attack: (2) Depression: Depression Type: unspecified Qualified Code(s): F32.A - Depression, unspecified (3) Anxiety: (4) Dementia: Plan -Continue Effexor XR 225mg daily * If depressive and anxiety symptoms persist and QTc remains <500ms could consider addition of mirtazapine 7.5mg HS for depression and anxiety augmentation in the future -Would increase Buspar to 15mg BID scheduled -For panic attacks consider use of hydroxyzine 10mg BID prn for panic attacks with caution for potential of increasing confusion/memory issues given anticholinergic effects. -Agree with plan for outpatient psychotherapy, he is currently on a waitlist Psych History Identifying Data Efrain is a 82 man with history of anxiety, depression, CAD, back pain, COPD, dementia, JAKE admitted medically for panic attack and elevated troponin. Psychiatry consulted for recommendations for depression, anxiety, intermittent SI. Chief Complaint "Everything was hitting me all at once". History of Present Illness Benjamín reports worsening short-term memory loss, forgetfulness and ongoing health issues leading to increased depression and anxiety. Yetserday he experienced a panic attack for the first time which was overwhelming. States he had another panic attack today but was able to get through it with the help of the nurses and breathing. States at home he sometimes gets short of breath with his COPD and breaths "too much" but his is very helpful in getting to calm down and relax. He reports depressive symptoms including low mood, tearfulness, sometimes difficulty falling asleep, decreased energy, decreased concentration and feeling like a burden. He experiences passive SI at times but is adamant he would never act on these thoughts stating "I would never do that, I love my life, I want to be alive" and notes his , daughter, caring for his 2.5 year old niece and friends as reasons for living and strong deterrents. He denies any current suicidal ideation. He feels anxiety has worsened recently but he's not sure why, does note ongoing physical challenges and memory changes as potential causes. He reports worsening depression and anxiety prompting an increase in his Effexor dose to 225mg daily 1-2 weeks ago. Based on chart review this appers to be inaccurrate, he was last seen by Dr. Christianson at the end of September and Buspar was increased at that time to 10mg BID, Effexor XR was already at 225mg daily. He attributes his declining mental health to accumulation of medical issues and physical limitations preventing him from engaging in previously enjoyed activities, leading to feelings of incapacity and frustration.He has had a stent placed and multiple hospitalizations over the past 2 years and feels like as soon as he recovers physically from an issue he develops something new. He experiences 15-20 minute panic attacks with shaking/weakness but focusing on breathing helps. He wants to avoid emotional numbing from medications, notes he has always been someone who cries easily when happy or sad. He is on the waitlist for a therapist in [place] and hopes to find one soon, they estimated a wait of about 3 weeks. 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 They have a daughter living outside of [place]. He helps babysit his 2.5 year old niece. He denies any history of prior suicide attempts or psychiatric hospitalizations. He thinks he may have been on one prior antidepressant medication. Allergies Allergy/AdvReac Type Severity Reaction Status Date / Time No Known Allergies Allergy Unknown Verified 11/04/23 17:47 Home Medications Medication Instructions Recorded Confirmed Type acetaminophen 325 mg tablet 650 mg PO QID PRN Pain 12/01/22 11/04/23 History (Tylenol) aspirin 81 mg tablet,delayed 81 mg PO QAM 02/01/23 11/04/23 History release mecobalamin (vitamin B12) 1,000 1,000 mcg PO QAM 02/01/23 11/04/23 History mcg chewable tablet venlafaxine 225 mg tablet,extended 225 mg PO DAILY #90 tabs 03/29/23 11/04/23 Rx release 24 hr albuterol sulfate 90 mcg/actuation 2 puff inhalation Q6H PRN 04/09/23 11/04/23 Rx aerosol inhaler (Ventolin HFA) shortness of breath or wheezing #8.5 grams clopidogrel 75 mg tablet 75 mg PO DAILY #90 tabs 05/08/23 11/04/23 Rx CPAP Supplies #1 ea 05/16/23 10/18/23 Rx lisinopril 40 mg tablet 40 mg PO DAILY #90 tabs 06/06/23 11/04/23 Rx dexlansoprazole 60 mg 60 mg PO DAILY #30 caps 07/02/23 11/04/23 Rx capsule,biphase delayed release (Dexilant) donepezil 10 mg tablet (Aricept) 10 mg PO QAM #90 tabs 07/27/23 11/04/23 Rx rosuvastatin 40 mg tablet 40 mg PO QAM #90 tabs 07/27/23 11/04/23 Rx buspirone 10 mg tablet 10 mg PO DAILY PRN anxiety 90 days 09/26/23 11/04/23 Rx #90 tabs amlodipine 10 mg tablet 10 mg PO DAILY #90 tabs 10/02/23 11/04/23 Rx sucralfate 100 mg/mL oral 10 ml PO QID #1,000 mL 10/02/23 11/04/23 Rx suspension betamethasone dipropionate 0.05 % 1 applic topical BID #60 mL 10/18/23 11/04/23 Rx lotion fluticasone fur. 100 mcg-umeclid 1 inh inhalation QAM 11/04/23 11/04/23 History 62.5 mcg-vilant 25 mcg inhalat.powder (Trelegy Ellipta) memantine 5 mg tablet 5 mg PO BID 11/04/23 11/04/23 History Patient History Medical History Stable angina Prediabetes diet controlled Anemia Rhinovirus infection continues with shortness of breath with heat/activity Bilateral headaches Abdominal pain CRP elevated Elevated erythrocyte sedimentation rate Hypomagnesemia Acute kidney injury superimposed on chronic kidney disease Weakness generalized in legs Abnormal CT of the abdomen reason for up coming colon/EGD Benign prostate hyperplasia Depression with anxiety Gastroesophageal reflux disease Senile dementia Fusion of spine L3-L4 Chronic back pain Osteoarthritis Urinary urgency Cancer PROSTATE CANCER, 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) Mild dementia Hyperlipidemia Surgical History History of heart artery stent 05/02/23 History of cardiac cath History of temporal artery biopsy (12/04/22) Bilateral Temporal Artery Biopsy(Bilateral) - Nestor Arboleda MD, FACS H/O shoulder surgery RIGHT SHOULDER TENDON REPAIR History of repair of rotator cuff RIGHT SHOULDER History of arthroscopy RIGHT KNEE History of discectomy LUMBAR AREA X2 History of bowel resection LAPRASCOPIC R/T VILLOUS ADENOMA History of colonoscopy History of adenoidectomy History of tonsillectomy History of cataract surgery BILATERAL Family History Father Cancer, Onset Age: 80 Hypertension Cardiac disorder Prostate cancer Mother age 97-unknown med problems Brother Cancer -unknown type of CA Brother Back pain Sister Dementia Denies family history of Ovarian cancer Coronary heart disease Breast cancer Colorectal cancer Social History Smoking Status: Former smoker Tobacco Type: Cigarettes Age Started Using Tobacco: 19; packs per day: 2; Cigarettes Per Day: 20; Second Hand Exposure: No; Do You Dip or Chew Tobacco: No; Hx Alcohol Use: No Hx Substance Use: No Preferred Language: Omani Communication Ability: Effective Visual Impairment: Limited Hearing Ability: Hard of Hearing 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: No Beliefs That Will Affect Care: None marital status: Current Living Situation: Spouse current occupational status: retired current occupation: Retired Other Information That Helps Us Care for You: No Feels Safe at Home: Yes Safety Concerns: Feels Safe At This Time Childhood Exposure to Second-Hand Smoke: Yes Diet: regular caffeine: Yes Dental Care, Regularly: Yes Physical Activity Frequency: Does not Exercise Seatbelt Use: always Sunscreen Use: No Assistive Devices: CPAP, Glasses and Walker Physical Exam Psychiatric: Orientation: alert and oriented x 3 Apperance: appropriately dressed and appropriately groomed Eye Contact: good eye contact Motor Behavior: no abnormal motor movements Speech: normal rate/rhythm/volume of speech Affect: euthymic affect and + tearful affect (briefly) Mood: + depressed mood and + anxious mood Thought Process: goal directed thought process Thought Content: reality based without delusions Suicidal Thoughts: denies suicidal thoughts Homicidal Thoughts: denies homicidal thoughts Hallucinations: no auditory hallucinations and no visual hallucinations Insight: + fair insight Judgment: + fair judgement Vital Signs (Past 24 Hours): Last Vital Signs Temp 36.5 C 11/05/23 07:24 Pulse 96 H 11/05/23 07:24 Resp 18 11/05/23 07:24 BP 156/85 H 11/05/23 07:24 Pulse Ox 97 11/05/23 07:24 O2 Del Method Room Air 11/05/23 07:24 Review of Systems All systems reviewed & are unremarkable except as noted in HPI & below Results & Data (PSY) Medications Administered Acetaminophen (Acetaminophen 325 Mg Tab) 650 mg PO QID PRN PRN Reason: Pain Stop: 12/04/23 21:45 Last Admin: 11/04/23 22:02 Dose: 650 mg Documented By: MJEli Amlodipine Besylate (Amlodipine Besylate 5 Mg Tab) 10 mg PO DAILY EVELIA Stop: 12/05/23 08:59 Last Admin: 11/05/23 08:50 Dose: 10 mg Documented By: TMP Aspirin (Aspirin 81 Mg Ectab) 81 mg PO QAM COUNTS INCLUDE 234 BEDS AT THE [facility] Stop: 12/05/23 08:59 Last Admin: 11/05/23 08:51 Dose: 81 mg Documented By: FREDI Buspirone HCl (Buspirone 5 Mg Tab) 10 mg PO DAILY PRN PRN Reason: anxiety Stop: 12/04/23 21:45 Last Admin: 11/04/23 22:10 Dose: 10 mg Documented By: RACHELE Clopidogrel Bisulfate (Clopidogrel Bisulfate 75 Mg Tab) 75 mg PO DAILY COUNTS INCLUDE 234 BEDS AT THE [facility] Stop: 12/05/23 08:59 Last Admin: 11/05/23 08:50 Dose: 75 mg Documented By: FREDI Donepezil HCl (Donepezil Hcl 10 Mg Tab) [facility] [place] Stop: 12/05/23 08:59 Last Admin: 11/05/23 08:51 Dose: 10 mg Documented By: FREDI Fluticasone Furoate (Fluticasone Furoate 100mcg 14 Puffs/Inhaler) 1 puffs INH [facility] Stop: 12/05/23 08:59 Last Admin: 11/05/23 08:52 Dose: 1 puffs Documented By: FREDI Thiamine HCl 100 mg/ Syringe 10 mls @ 2 mls/[facility] [place] Stop: 12/04/23 20:29 Last Admin: 11/05/23 08:47 Dose: 2 mls/min Documented By: Admin: 11/04/23 20:30 Dose: 2 mls/min Documented By: LEEANN Lisinopril (Lisinopril 40 Mg Tab) 40 mg PO DAILY COUNTS INCLUDE 234 BEDS AT THE [facility] Stop: 12/05/23 08:59 Last Admin: 11/05/23 08:51 Dose: 40 mg Documented By: FREDI Memantine (Memantine Hcl 5 Mg Tab) 5 mg PO BID COUNTS INCLUDE 234 BEDS AT THE [facility] Stop: 12/04/23 21:45 Last Admin: 11/05/23 08:49 Dose: 5 mg Documented By: Admin: 11/04/23 22:10 Dose: 5 mg Documented By: RACHELE Pantoprazole Sodium (Pantoprazole 40 Mg Tab) 40 mg PO DAILY COUNTS INCLUDE 234 BEDS AT THE [facility] Stop: 12/05/23 08:59 Last Admin: 11/05/23 08:52 Dose: 40 mg Documented By: FREDI Rosuvastatin Calcium (Rosuvastatin Calcium 20 Mg Tab) 40 [facility] [place] Stop: 12/05/23 08:59 Last Admin: 11/05/23 08:51 Dose: 40 mg Documented By: FREDI Sucralfate (Sucralfate 1 Gm/10 Ml Udc) 1 gm PO QID COUNTS INCLUDE 234 BEDS AT THE [facility] Stop: 12/04/23 21:45 Last Admin: 11/05/23 08:48 Dose: 1 gm Documented By: Admin: 11/04/23 22:10 Dose: 1 gm Documented By: RACHELE Umeclidinium/Vilanterol (Umeclidinium/Vilanterol 62.5/25mcg 7 Puffs/Inhaler) 1 puffs INH DAILY COUNTS INCLUDE 234 BEDS AT THE [facility] Stop: 12/05/23 08:59 Last Admin: 11/05/23 08:52 Dose: 1 puffs Documented By: FREDI Venlafaxine HCl (Venlafaxine Hcl Xr 75 Mg Capxr) 225 mg PO DAILY COUNTS INCLUDE 234 BEDS AT THE [facility] Stop: 12/05/23 08:59 Last Admin: 11/05/23 08:51 Dose: 225 mg Documented By: FREDI Coding Level of Care Code 41530 IN/OBS CONSULT LVL 4,60M Diagnoses Panic attack F41.0 Depression F32.A Depression Type: unspecified Anxiety F41.9 Dementia F03.90
--- NOTE | 2023-11-05 12:16 | XCELERA ---
[id number] \\[email or web address]\[email or web address]_[id number]
[2023-11-05] MEDS: oxyCODONE HCL IR 5 MG TAB (IMMEDIATE RELEASE) PO PRN (12:44)
--- NOTE | 2023-11-05 13:20 | Hospitalist Progress Note ---
Date of Service November 05, 2023 Assessment & Plan (1) Anxiety and depression: Plan: Anxiety, depression, expressed SI Patient with panic attacks and significant anxiety regarding his medical comorbidities Expresses no suicidal ideation at this time Evaluated by psych liaison who added some recommendations Placed orders according to psych recommendations: Increase BuSpar to 15 mg p.o. twice daily scheduled and added hydroxyzine to be used as needed twice daily for panic attacks (2) Panic attack: Plan: As noted. Psych recommended hydroxyzine to be used for panic attack (3) Suicidal ideation: Plan: Endorses passive but not current active SI. Patient does express that he feels if his ideation became active, or he had return of intention/plan he would be comfortable reaching out to providers to let them know - Psych liason consulted, acute risk of self-harm is low per psych (4) CAD (coronary artery disease): Plan: CAD with history of PCI 2022 Mildly elevated troponin Chest pain improved at time of provider assessment Troponin trended overnight Echo ordered Aspirin/Plavix continued Lisinopril continued Rosuvastatin continued Suspect due to stress/demand however patient has had significant dyspnea on minimal exertion and has underlying CAD. Ordered a dobutamine stress echo to be done tomorrow (5) Chronic obstructive pulmonary disease: Plan: Chronic obstructive pulmonary disease Continue inhaler/formulary equivalent No wheezing on admission SpO2 goal greater than 90% No acute exacerbation on admission (6) Dementia: Plan: Dementia Recent diagnosis Continue Aricept/Namenda (7) Hematuria: Plan: History of prostate cancer With hematuria. Treated with radiation, did have some subsequent bleeding/clots. Passed a voiding trial 10/23 after having a Begum in place Patient has had recurrent intermittent hematuria with clots; however UA on admission is negative for blood His pending outpatient cystoscopy, but has been having difficulty scheduling appointments If recurrent symptoms while inpatient can consult urology; however no indication for urgent cystoscopy at this time and hematuria is not present on admitting UA. (8) GERD (gastroesophageal reflux disease): Plan: GERD EGD 2022 with tubular adenoma and small hiatal hernia. Continue PPI, Carafate (9) Sleep apnea: Plan: CPAP nightly Plan DVT prophylaxis: SCDs,pharmacoprophylaxis held due to recurrent/persistent hematuria Diet CODE STATUS DNR/DNI Admission and Anticipated Discharge Date Admission Date: November 04, 2023 Subjective Patient feels much better overall. Not feeling anxious anymore. He says that he had a good conversation with the psychiatrist and is feeling better overall. He complains of back pain. He normally uses TENS unit but he has had to turn it off because it has been interfering with his monitoring analyst. Because it is turned off, his back pain is acting up. Tylenol has not helped. He is willing to use oxycodone temporarily. He denies chest pain or shortness of breath at this time Review of Systems Review of Systems: All systems reviewed & are unremarkable except as noted in Subjective Physical Exam Physical Exam: General: Awake, conversant Heart: S1, S2/regular rate and rhythm, no murmur rubs or gallops Lungs: Clear to auscultation bilaterally. Normal effort Abdomen: Soft/nontender/nondistended. No hepatosplenomegaly Extremities: No clubbing/cyanosis. No edema Behavior: Appropriate, cooperative Results & Data Results & Data Vital Signs (Past 12 Hours) Vital Signs Temp Pulse Pulse Resp BP Pulse Ox O2 Del Method 11/05/23 11:33 37.1 C 88 18 120/79 95 Room Air 11/05/23 07:24 36.5 C 96 H 18 156/85 H 97 Room Air 11/05/23 07:20 Room Air 11/05/23 07:13 96 H Laboratory Results Abnormal lab results 11/04/23 11/04/23 11/04/23 Range/Units 13:09 14:18 17:00 RBC 4.17 L (4.70-6.10) M/uL Hgb 12.8 L (14.0-18.0) g/dl Hct 38.0 L (42.0-52.0) % RDW Std Deviation 48.4 H (36.4-46.3) fL RDW Coeff of [place] 14.6 H (11.5-14.5) % [place] # (Auto) 0.71 H (0.11-0.59) K/uL Chloride 109 H (98-107) mmol/L Glucose 118 H (70-99(Fasting)) mg/dl Troponin I High Sens 20.7 H 23.0 H (0-20) pg/ml Globulin 2.4 L (2.5-4.0) gm/dl Urine Protein Trace H (Negative) U Hyaline Cast (Auto) 3-5 H (0-2) /lpf 11/05/23 11/05/23 Range/Units 05:20 09:54 RBC 3.69 L (4.70-6.10) M/uL Hgb 11.4 L (14.0-18.0) g/dl Hct 34.1 L (42.0-52.0) % RDW Std Deviation 48.5 H (36.4-46.3) fL RDW Coeff of [place] (11.5-14.5) % [place] # (Auto) (0.11-0.59) K/uL Chloride 110 H (98-107) mmol/L Glucose 109 H (70-99(Fasting)) mg/dl Troponin I High Sens 25.4 H 21.1 H (0-20) pg/ml Globulin (2.5-4.0) gm/dl Urine Protein (Negative) U Hyaline Cast (Auto) (0-2) /lpf Diagnostic Findings Head CT 11/04/23 12:57 CT head/brain wo con CLINICAL HISTORY: ams Technique: Contiguous axial CT images of the head were acquired from the base of the skull to the vertex without intravenous contrast administration. Images were viewed in brain, subdural and bone windows. Automated dose lowering techniques and/or adjustment according to patient size were utilized for this exam. Comparison: Comparison is made to CT head 12/01/2022 Findings: Areas of decreased attenuation are present in the periventricular and subcortical white matter bilaterally consistent with small vessel ischemic disease. Generalized cerebral atrophy with commensurate enlargement of the ventricles, sulci, and cisterns is also present. There is no acute intracranial hemorrhage or evidence of acute territorial infarction. No shift of the midline structures, mass effect, or extra-axial abnormalities are shown. Atherosclerotic calcifications are present in the intracranial segments of the internal carotid arteries. Imaged portions of the paranasal sinuses and mastoid air cells are clear. The orbits appear normal. There are no acute fractures of the calvaria or scalp swelling. Impression: No acute intracranial hemorrhage, no evidence of acute territorial infarction or other acute intracranial disease process. ACT 112: Negative or not required by law. Electronically signed by: Shreyas Awad M.D. 11/04/2023 1:55 PM Chest X-Ray 11/04/23 13:15 XR chest 1V portable CLINICAL HISTORY: cp TECHNIQUE: Single frontal radiograph of the chest was obtained. Comparison: Comparison is made to chest radiograph 04/06/2023 FINDINGS: No lines and tubes are seen. The cardiomediastinal silhouette is stable. The lungs are clear. No evidence of pleural effusion or pneumothorax. IMPRESSION: No acute chest disease. ACT 112: Negative or not required by law. Electronically signed by: Shreyas Awad M.D. 11/04/2023 3:04 PM PG Care Time/CCT Total # of Minutes Spent Total Time Spent with Patient: Total time spent is greater than 50% in coordination of care (as documented) at patient's floor/unit and/or counseling patient: Coding Level of Care Code 05847 SUB INP/OBS CARE 2/35MIN Diagnoses Anxiety and depression F41.9; F32.A Panic attack F41.0 Suicidal ideation R45.851 Coronary artery disease involving three affiliated coronary artery of three affiliated heart without angina pectoris I25.10 Coronary Disease-Associated Artery/Lesion type: three affiliated artery [place] vs. transplanted heart: three affiliated heart Associated angina: without angina Pulmonary emphysema, unspecified emphysema type J43.9 COPD type: emphysema Emphysema type: unspecified Dementia F03.90 Hematuria R31.9 GERD (gastroesophageal reflux disease) K21.9 Sleep apnea G47.30 (4) CAD (coronary artery disease) Coronary Disease-Associated Artery/Lesion type: three affiliated artery [place] vs. transplanted heart: three affiliated heart Associated angina: without angina Qualified Code(s): I25.10 - Atherosclerotic heart disease of three affiliated coronary artery without angina pectoris (5) Chronic obstructive pulmonary disease COPD type: emphysema Emphysema type: unspecified Qualified Code(s): J43.9 - Emphysema, unspecified
[2023-11-05] MEDS: busPIRone 15 MG TAB PO SCH (20:57)
[2023-11-06 06:18] LABS: Basophils # (auto) 0.03 K/uL (0.00-0.20); Basophils % (auto) 0.4 %; Eosinophils # (auto) 0.34 K/uL (0.00-0.50); Eosinophils % (auto) 4.7 %; Hematocrit (blood only) 36.6 % (42.0-52.0); Hemoglobin 12.3 g/dl (14.0-18.0); Immature Granulocytes # (auto) 0.03 K/uL (0.01-0.20); Immature Granulocytes % (auto) 0.4 %; Lymphocytes # (auto) 1.63 K/uL (1.20-3.40); Lymphocytes % (auto) 22.3 %; Mean Corpuscular Hemoglobin 30.9 pg (25.0-34.0); Mean Corpuscular Hgb Conc 33.6 g/dL (32.0-36.0); Mean Platelet Volume 9.5 fL (9.4-12.4); Monocytes # (auto) 0.63 K/uL (0.11-0.59); Monocytes % (auto) 8.6 %; Neutrophils # (auto) 4.64 K/uL (1.40-6.50); Neutrophils % (auto) 63.6 %; Platelet Count 287 K/uL (130-400); RDW Coefficient of Variation 14.4 % (11.5-14.5); RDW Standard Deviation 48.2 fL (36.4-46.3); Red Blood Count 3.98 M/uL (4.70-6.10)
[2023-11-06 06:35] LABS: BUN Creatinine Ratio 17.8 (10-20); Calcium 9.4 mg/dl (8.6-10.3); Est GFR (African American) 66.2 ml/min; Est GFR (Non-African American) 57.1 ml/min
[2023-11-06] MEDS: SODIUM CHLORIDE 0.9% 500 ML IV SCH (07:46)
[2023-11-06] MEDS: hydrOXYzine HCl 10 MG TAB PO PRN (08:11)
--- NOTE | 2023-11-06 10:44 | XCELERA ---
[id number] \\[facility]\ISCV_PDF_[id number]
[2023-11-06] MEDS: METOPROLOL TARTRATE 1 MG/ML VIAL IV ONE (11:09)
[2023-11-06] MEDS: ATROPINE SULFATE 0.1 MG/ML 10ML SYR IV ONE (11:09)
[2023-11-06] MEDS: NITROGLYCERIN SL 0.4 MG/TAB TAB ONE (11:10)
[2023-11-06] MEDS: DOBUTamine HCL 12.5 MG/ML 20 ML VIAL IV ONE (11:10)
--- NOTE | 2023-11-06 12:38 | Discharge Summary ---
Date of Service November 06, 2023 Admission HPI Per Admitting Provider Efrain is an 82-year-old male who presents to the emergency department with a panic attack. Per ER signout patient felt overwhelmed with his health conditions, reported chest pain, shortness of breath, racing thoughts, and that he was overwhelmed by thoughts of wanting to be and his medical conditions including dementia.. Patient received Ativan in the ER and was initially more comfortable, subsequently demanded to leave immediately around 1500 and expressed ER providers that he was being held against his will. Given his cardiac history and chest pain with mildly elevated troponin 20.1 patient was recommended to stay for a delta troponin. His delta troponin increased and was recommended to stay for cardiac evaluation. Patient initially demanded to leave AGAINST MEDICAL ADVICE, however upon signing AMA paperwork from ER provider then said that they did not wish to leave and patient would like to be admitted overnight but requested an additional dose of Ativan. Efrain is seen at the bedside. He reports that he has had severe anxiety in the past however feels his multiple medical comorbidities, difficulty scheduling appointments, and overall decline in health and feeling like he has been a burden to his all overwhelmed him this morning leading to a panic attack. He reports he has had small anxiety flares in the past, but is never experienced an anxiety/panic attack like this morning and this made him further short of breath with difficulty breathing and transient chest pain. This resolved following Ativan in the ER. He reports he is completely chest pain-free. He h as not had chest pain on exertion, but notes his exertion is limited by significant dyspnea. He does not walk very far and does get quickly short of breath and sometimes has sweats with his shortness of breath in the last few weeks. Again no chest pain with these episodes. He has not had any orthopnea denies leg swelling. Denies fever, chills, sweats. No abdominal pain. No nausea/vomiting. No hematochezia/melena He reports feeling overwhelmed by his medical comorbidities and notes his anxiety has been much worse. Has been trying to get into talk to someone but has had difficulty enrolling with a therapist or psychiatrist with multiple week weights. He has been on venlafaxine for a long time, has not had a dose adjustment and "a very long time "although did have buspirone started at 10 mg daily a few months ago and thinks this did help with his suicidal ideation overall. Denies straight panic attacks before today. Feels improved at the bedside and notes that both the medicine he received earlier, and being admitted and talking through plan seems to have helped his anxiety significantly. He endorses passive SI at time of admission, denies current plan/active SI. Denies hallucinations. Medical History: Reviewed Medications: Reviewed Surgical History: Reviewed Family history: Reviewed Allergies: Reviewed Social History: Reviewed Code Status: DNR/DNI, confirmed w pt and at bedside Admission Exam Per Admitting Provider General: Oriented to name and place. Calm at time of admission. Endorses severe anxiety with medical conditions. Mood congruent. Thought process linear. HEENT: Atraumatic, normocephalic. Pulm: CTAB A&P. -wheezes, -rales, -rhonchi. Symmetrical chest rise. No increased work of breathing. No respiratory distress. Cardiac: RRR, +sm. Radial pulses intact and symmetrical. Abdominal: Nontender, nondistended, soft. BS present. Principal Diagnosis Panic attacks Demand ischemia. Acute coronary syndrome ruled out with negative stress test Discharge Exam General: Awake, conversant Heart: S1, S2/regular rate and rhythm, no murmur rubs or gallops Lungs: Clear to auscultation bilaterally. Normal effort Abdomen: Soft/nontender/nondistended. No hepatosplenomegaly Extremities: No clubbing/cyanosis. No edema Behavior: Appropriate, cooperative Discharge Data Allergies Allergy/AdvReac Type Severity Reaction Status Date / Time No Known Allergies Allergy Unknown Verified 11/04/23 17:47 Consultations 11/04/23 18:06 ED Decision to Admit Stat 11/04/23 19:36 Consult Psychiatry Routine Ordered Studies 11/04/23 12:57 CT head/brain wo con Stat Hospital Course (1) Anxiety and depression: Anxiety, depression, expressed SI Patient with panic attacks and significant anxiety regarding his medical comorbidities Expresses no suicidal ideation at this time Evaluated by psych liaison who added some recommendations Will discharge on the following per psychiatry recommendations: Increase BuSpar to 15 mg p.o. twice daily scheduled and added hydroxyzine to be used as needed twice daily for panic attacks (2) Panic attack: As noted. Psych recommended hydroxyzine to be used for panic attack (3) Suicidal ideation: Endorses passive but not current active SI. Patient does express that he feels if his ideation became active, or he had return of intention/plan he would be comfortable reaching out to providers to let them know - Psych liason consulted, acute risk of self-harm is low per psych (4) CAD (coronary artery disease): CAD with history of PCI 2022 Mildly elevated troponin Chest pain improved at time of provider assessment Troponin trended overnight Echo ordered Aspirin/Plavix continued Lisinopril continued Rosuvastatin continued Suspect due to stress/demand however patient has had significant dyspnea on minimal exertion and has underlying CAD. Dobutamine stress echo was negative (5) Chronic obstructive pulmonary disease: Chronic obstructive pulmonary disease Continue inhaler/formulary equivalent No wheezing on admission SpO2 goal greater than 90% No acute exacerbation on admission (6) Dementia: Dementia Recent diagnosis Continue Aricept/Namenda (7) Hematuria: History of prostate cancer With hematuria. Treated with radiation, did have some subsequent bleeding/clots. Passed a voiding trial 10/23 after having a Begum in place Patient has had recurrent intermittent hematuria with clots; however UA on admission is negative for blood His pending outpatient cystoscopy, but has been having difficulty scheduling appointments No hematuria during hospitalization (8) GERD (gastroesophageal reflux disease): GERD EGD 2022 with tubular adenoma and small hiatal hernia. Continue PPI, Carafate (9) Sleep apnea: CPAP nightly Plan Stable for discharge today Total Time Total Time Spent Total Time Spent (In Minutes): 35 Discharge Plan Discharge Items Patient Disposition: Home - Self-Care Reason For Visit: PANIC ATTACKS, Discharge Diagnosis: Panic attacks Demand ischemia. Acute coronary syndrome ruled out with negative stress test Activity: Resume your previous activity Non-emergency contact: Primary Care Provider Call non-emergency contact if: you have any medication questions and your sy mptoms worsen Follow-up/Referrals: Jonathan Christianson DO [Primary Care Provider] - 11/13/23 11:30 am Diet: Heart Healthy Addtl Attending Provider Instructions: Advised to follow-up with PCP in 1 week Pending Studies at Discharge: No Stand-Alone Forms: My [employer], Smoking Cessation Medications and DC Order Prescriptions: New buspirone 15 mg Tablet 15 mg PO BID 30 Days Qty: 60 0RF hydroxyzine HCl 10 mg Tablet 10 mg PO BID PRN (Reason: panic attack(s)) Qty: 20 0RF Continued venlafaxine 225 mg tablet extended release 24hr 225 mg PO DAILY Qty: 90 3RF albuterol sulfate [Ventolin HFA] 90 mcg/actuation HFA aerosol inhaler 2 puff inhalation Q6H PRN (Reason: shortness of breath or wheezing) Qty: 8.5 5RF (DME) CPAP Supplies Misc See Rx Instructions .Route Qty: 1 3RF Rx Instructions: tubing, Head gear ,mask of pt choice,filters and any other supplies needed. LON99 dexlansoprazole [Dexilant] 60 mg capsule,biphase delayed releas 60 mg PO DAILY Qty: 30 2RF rosuvastatin 40 mg tablet 40 mg PO QAM Qty: 90 3RF donepezil [Aricept] 10 mg tablet 10 mg PO QAM Qty: 90 3RF amlodipine 10 mg tablet 10 mg PO DAILY Qty: 90 3RF sucralfate 100 mg/mL suspension 10 ml PO QID Qty: 1000 0RF Rx Instructions: swish in mouth and swallow; use after food/drink lisinopril 40 mg tablet 40 mg PO DAILY Qty: 90 3RF clopidogrel 75 mg tablet 75 mg PO DAILY Qty: 90 3RF betamethasone dipropionate 0.05 % lotion 1 applic topical BID Qty: 60 0RF Rx Instructions: Apply to areas of the scalp and chest twice daily for up to 2 weeks as needed for flaring. aspirin 81 mg tablet,delayed release (DR/EC) 81 mg PO QAM mecobalamin (vitamin B12) 1,000 mcg tablet,chewable 1,000 mcg PO QAM acetaminophen [Tylenol] 325 mg Tablet 650 mg PO QID PRN (Reason: Pain) memantine 5 mg tablet 5 mg PO BID Trelegy Ellipta 100-62.5-25 mcg blister with device 1 inh inhalation QAM Rx Instructions: INHALE 1 PUFF BY MOUTH ONCE DAILY Discontinued buspirone 10 mg tablet 10 mg PO DAILY PRN (Reason: anxiety) 90 Days Qty: 90 3RF Discharge Orders: Discharge Order (Routine); Ordered 11/06/23 Ordered By: Troy Greer Admission Data Admit Date/Time: 11/04/23 19:51 Attending Provider: Troy Greer Admit Provider: Pablo Orellana Primary Care Provider: Jonathan Christianson Other Providers: Pablo Orellana; Maura Porter; Efrain Moya; Ga Rock Jr; Alina Morales; Marie Lisa; Tim Higgins Other Interventions: Discharge Summary Assessment (RN) Last Done: 11/06/23 13:48 Coding Level of Care Code 60141 INP/OBS DISCH >30 MIN Diagnoses Anxiety and depression F41.9; F32.A Panic attack F41.0 Suicidal ideation R45.851 Coronary artery disease involving [place] coronary artery of [place] heart without angina pectoris I25.10 Associated angina: without angina Coronary Disease-Associated Artery/Lesion type: [place] artery [place] vs. transplanted heart: [place] heart Pulmonary emphysema, unspecified emphysema type J43.9 COPD type: emphysema Emphysema type: unspecified Dementia F03.90 Hematuria R31.9 GERD (gastroesophageal reflux disease) K21.9 Sleep apnea G47.30
== END 2023-11-06 14:31 | disposition home or self-care (01) ==
LOC: ED 12:48 → 2W 12:48 → SUATTDRO 19:51 → 2W 21:20